=== PATIENT | male | born 1940 | race African-American/Black ===

== ENCOUNTER → 2016-09-07 | Outpatient (CLI) | payer BC ==
[2013-08-13 11:06] VITALS: BP 126/69
[~2016-09-07] MED LIST: ALBU0.63 NEB; AMLO5TAB2 PO; ASPI-482 PO; ATOR40TA59 PO; CALC0.25 PO; CARB200T4 PO; CARV12.52 PO; CIPR500T94; CLON0.2T PO; CLOP75TA57 PO; DIVA500T9 PO; FURO20TA3 PO; GLIP-112 PO; HYDR-2678 PO; ISOS20TA2 PO; TERA5CAP3 PO; WARF10TA6 PO
--- NOTE | 2016-09-07 15:22 | RAD ---
Carotid ultrasound, 09/07/2016: History: Right carotid bruit Duplex evaluation of the carotid arteries in neck was performed including grayscale, color flow and spectral Doppler analysis. There are mild scattered plaques in the common carotid arteries and at the carotid bifurcations, left greater than right. The plaques are partially calcified. The Doppler data obtained from the bifurcations reveals no significant focal velocity acceleration to suggest a hemodynamically significant carotid stenosis. Antegrade flow is present in both vertebral arteries in the neck. IMPRESSION: Mild atherosclerotic plaquing at the carotid bifurcations, left greater than right, with underlying luminal narrowing in the 0-50% diameter range bilaterally. Note: Stenosis calculations for CT, MRA and conventional angiography are based upon determination of the distal ICA diameter in accordance with the NASCET methodology. Stenosis calculations for Doppler studies are derived from validated velocity criteria which are known to correlate with NASCET methodology of determining stenosis.
== END | disposition home or self-care (01) ==
LOC: US 14:41
PROVIDERS: ATTEND Family Medicine
DX: R09.89 Other specified symptoms and signs involving the circulatory and respiratory systems (principal)
CPT/HCPCS: 93880

== ENCOUNTER → 2016-12-12 | Outpatient (CLI) | payer BC ==
[2013-08-13 11:06] VITALS: BP 126/69
[~2016-12-12] MED LIST changes: +REGADENOSON 0.4 MG/5 ML DISP.SYRIN. IV ONE
--- NOTE | 2016-12-12 16:08 | RAD ---
APPROVED REPORT Test Type: Pharmacological Stress Nurse/Tech: Uma Munoz R.N. Test Indications: CAD Cardiac History: CAD, PPM Medications: SEE EMR Medical History: CVA, DM, CRI Resting ECG: PPM Resting Heart Rate: 82 bpm Resting Blood Pressure: 179/82mmHg Pretest Chest Pain: None Nurse/Tech Notes S1S2, lungs CTA, denied chest pain or SOA. Consent: The procedure was explained to the patient in lay terms. Informed consent was witnessed. Declan eout was entered into [employer]. History and Stress Test performed by Uma Munoz R.N. Pharm. Details Pharmacologic stress testing was performed using 0.4mg per 5ml of regadenoson given intravenously ove r 7-10 seconds. Stress Symptoms Extremely SOA. POST EXERCISE Reason for Termination: Infusion complete Max HR: 126 bpm Max Blood Pressure: 179/82mmHg Blood Pressure response to exercise: Normal blood pressure response during stress. Heart Rate response to exercise: Normal Chest Pain: No. Arrhythmia: No. ST Change: No. INTERPRETATION Stress EKG Conclusion: Baseline EKG showed ventricular paced rhythm. Non diagnostic changes at peak stress. No significant arrhythmias. Imaging Protocol IMAGE PROTOCOL: Rest Tc-99m/stress Tc-99m 1 day Rest: Stress: Viability: Radiopharm.Tc99m [id number] Sestamibi Dose11.2mCi 33mCi Duration 15min. 12min. Img Date 12/12/2016 12/12/2016 Inj-Img [id number]. 60min. Rest Admin Site:IV - Right AntecubitalAdministrator:EDWIGE Yoo, ARRT (R)(N) Stress Admin Site: IV - Right AntecubitalAdministrator: Zahra Coombs, RT (R)(N) STRESS DATA End Diast. Vol.95.0mlAv. Heart Scff828.0bpm End Syst. Vol.37.0mlCO Index BSA0.0L/min Myocardial Jwtg197.0gEject. Npitrjhk46.0% Stress Rates Pk. Fill Rate5.13EDV/secLVtime Pk. Fill 66.39msec Pk. Empty Rate6.42ESV/secLVtime Pk. Laohx680.16msec 02/27 Pk. Fill2.68EDV/sec Stress Scores Regional WT3.00Summed WT46.00 Regional WM0.00Summed WM13.00 Study quality was good. Left Ventricular size was Normal at Rest and Stress. Lung uptake was Normal. Left Ventricular ejection fraction is 61%. The rest and stress images show normal perfusion, normal contraction and thickening. LV Perf. Quant 17 Seg. SSS1.00 17 Seg. SRS4.00 17 Seg. SDS0.00 Stress Defect Extent (% LAD)0.00Rest Defect Extent (% LAD)0.00Rev. Defect Extent (% LAD)0.00 Stress Defect Extent (% LCX) 5.00Rest Defect Extent (% LCX)0.00Rev. Defect Extent (% LCX)0.00 Stress Defect Extent (% RCA)0.00Rest Defect Extent (% RCA)0.00Rev. Defect Extent (% RCA)0.00 Stress Defect Extent (% URIAH)0.90Rest Defect Extent (% URIAH)0.00Rev. Defect Extent (% URIAH)0.00 Conclusion 1. Regadenoson cardioisotope stress test did not show any evidence of ischemia or infarct. 2. Normal left ventricular systolic function with ejection fraction calculated at 61%. 3. Low risk for cardiac events.
== END | disposition home or self-care (01) ==
LOC: NM 09:58
PROVIDERS: ATTEND Internal Medicine Cardiovascular Disease
DX: E11.22 Type 2 diabetes mellitus with diabetic chronic kidney disease (principal); N18.9 Chronic kidney disease, unspecified; I25.10 Atherosclerotic heart disease of native coronary artery without angina pectoris; I49.5 Sick sinus syndrome
CPT/HCPCS: 78452; 93017; 96374; 96375; 96376; A9500; J2785

== ENCOUNTER → 2016-12-18 | Outpatient (CLI) | payer BC ==
[2013-08-13 11:06] VITALS: BP 126/69
[~2016-12-18] MED LIST changes: -REGADENOSON 0.4 MG/5 ML DISP.SYRIN. IV ONE
--- NOTE | 2016-12-19 11:04 | SLEEP ---
DATE OF STUDY: 12/18/2016 ATTENDING PHYSICIAN: Dr. Morgan Antonio. The patient is a 76-year-old who weighs 190 pounds with a BMI of 23. The patient's [place] score was 6. The patient had sleep study 15 years ago and he used CPAP for 2 years and then stopped using. Since then, he has lost 60 pounds. During the night study, the patient spent 434 minutes in bed and slept for 382 minutes with a sleep efficiency of 88%. Sleep latency was 20 minutes with a REM latency of 396 minutes. Overall, sleep architecture showed normal stage I sleep, increased stage II sleep, normal slow wave and significantly reduced REM sleep, which was only 1% of the total sleep time. During the night study, the patient had 20 obstructive apneas, 1 mixed, and no central apneas. There were 1 hypopneas. The patient's apnea hypopnea index was only 4 per hour with a supine index of 5 per hour. REM index of 120 per hour. The patient had only 4 minutes of REM sleep, which came very late in the night. EKG monitoring revealed mean heart rate of 68 beats per minute, no sustained arrhythmias were observed. Periodic limb movements were not seen. The nocturnal oximetry study revealed a mean oxygen saturation 97% with the lowest of 87%. Only 0.7% of time oxygen saturation remained between 80% and 89%. Due to low AHI, the patient did not meet the split night criteria for CPAP initiation. IMPRESSION: 1. No clinically significant sleep disordered breathing. The patient's AHI for the entire night was only 4 per hour. The patient had very minimal REM sleep, which was only 1% of the total sleep time and this can underestimate the severity of sleep apnea. 2. No clinically significant PLMS. 3. No clinically significant nocturnal hypoxia. RECOMMENDATIONS: 1. The patient did not meet the split night criteria for CPAP initiation. 2. Further Weight loss is advised. 3. Avoid [employer]PER[employer] depressants. JUAN LOUIE MD DR: FREDO/jj JOB#: [id number] / [id number] Dr. Morgan Arita
== END | disposition home or self-care (01) ==
LOC: SLPLAB 18:23
PROVIDERS: ATTEND Family Medicine
DX: G47.33 Obstructive sleep apnea (adult) (pediatric) (principal); R40.0 Somnolence
CPT/HCPCS: 95810

== ENCOUNTER 2017-01-09 16:41 | Inpatient (IN) | payer BC ==
[~2017-01-09] VITALS: Ht 182.9 cm; Wt 81.4 kg
--- NOTE | 2017-01-09 17:02 | PHYS DOC ---
Past Medical History Past Medical History: Angina, CAD, Diabetes-Type II, DVT, High Cholesterol, Hypertension, Seizure Past Surgical History: Appendectomy Additional Past Surgical Histo: IVC Filter, Heart Cath with stent, vein surgery on leg, back surgery Alcohol Use: None Drug Use: None Adult General Chief Complaint Chief Complaint: DIZZY/LIGHT HEADED HPI HPI Patient is a 76 year old male who presents with with vague complaints of mild to moderate weakness and dizziness this generalized for the past 3 weeks gradual onset; no headache or blurry vision chest pain shortness of breath nausea vomiting diarrhea. Does report decreased appetite and maybe some weight loss. Reports his blood pressure is normally quite high. He does take Coumadin for prior DVT has a pacemaker and is diabetic type II. Review of Systems Review of Systems Constitutional: Denies fever or chills [] Eyes: Denies change in visual acuity, redness, or eye pain [] HENT: Denies nasal congestion or sore throat [] Respiratory: Denies cough or shortness of breath [] Cardiovascular: No additional information not addressed in HPI [] GI: Denies abdominal pain, nausea, vomiting, bloody stools or diarrhea [] : Denies dysuria or hematuria [] Musculoskeletal: Denies back pain or joint pain [] Integument: Denies rash or skin lesions [] Neurologic: Denies headache, focal weakness or sensory changes [] Endocrine: Denies polyuria or polydipsia [] All other systems were reviewed and found to be within normal limits, except as documented in this note. Current Medications Current Medications Current Medications Medications (Trade) Dose Ordered Sig/Rian Start Time Stop Time Status Last Admin Dose Admin Aspirin (Children'S Aspirin) 324 mg 1X ONCE 01/09/17 19:15 01/09/17 19:16 01/09/17 19:10 324 MG Clonidine HCl (Catapres) 0.2 mg 1X ONCE 01/09/17 17:15 01/09/17 17:16 DC 01/09/17 17:54 0.2 MG Morphine Sulfate 2 mg PRN Q2HR PRN 01/09/17 19:15 01/10/17 19:14 Ondansetron HCl (Zofran) 4 mg PRN Q8HRS PRN 01/09/17 19:15 01/10/17 19:14 Sodium Chloride 500 ml @ 500 mls/hr 1X ONCE 01/09/17 17:15 01/09/17 18:14 DC 01/09/17 17:53 500 MLS/HR Allergies Allergies Allergies Coded Allergies Type Severity Reaction Last Updated Verified No Known Drug Allergies 07/30/13 No Physical Exam Physical Exam Constitutional: Well developed, well nourished, no acute distress, non-toxic appearance. [] HENT: Normocephalic, atraumatic, bilateral external ears normal, oropharynx moist, no oral exudates, nose normal. [] Eyes: PERRLA, EOMI, conjunctiva normal, no discharge. [] Neck: Normal range of motion, no tenderness, supple, no stridor. [] Cardiovascular:Heart rate regular rhythm, no murmur [] Lungs & Thorax: Bilateral breath sounds clear to auscultation [] Abdomen: Bowel sounds normal, soft, no tenderness, no masses, no pulsatile masses. [] Skin: Warm, dry, no erythema, no rash. [] Back: No tenderness, no CVA tenderness. [] Extremities: No tenderness, no cyanosis, no clubbing, ROM intact, no edema. [] Neurologic: Alert and oriented X 3, normal motor function, normal sensory function, no focal deficits noted. [] Psychologic: Affect normal, judgement normal, mood normal. [] Current Patient Data Vital Signs Vital Signs Date Time Temp Pulse Resp B/P (MAP) Pulse Ox O2 Delivery O2 Flow Rate FiO2 01/09/17 17:55 84 18 97 01/09/17 17:54 157/82 01/09/17 16:50 97.9 Room Air 97.9 Lab Values Laboratory Tests Test 01/09/17 17:10 01/09/17 17:23 Urine Collection Type Unknown Urine Color Yellow Urine Clarity Clear Urine pH 6.0 Urine Specific [place] 1.010 Urine Protein Negative mg/dL (NEG-TRACE) Urine Glucose (UA) Negative mg/dL (NEG) Urine Ketones (Stick) Negative mg/dL (NEG) Urine Blood Negative (NEG) Urine Nitrite Negative (NEG) Urine Bilirubin Negative (NEG) Urine Urobilinogen Dipstick 1.0 mg/dL (0.2 mg/dL) Urine Leukocyte Esterase Negative (NEG) Urine RBC Rare /HPF (0-2) Urine WBC Rare /HPF (0-4) Urine Squamous Epithelial Cells None /LPF Urine Bacteria 0 /HPF (0-FEW) Urine Hyaline Casts Few /HPF Urine Mucus Mod /LPF White Blood Count 3.4 x10^3/uL (4.0-11.0) L Red Blood Count 3.83 x10^6/uL (4.30-5.70) L Hemoglobin 11.9 g/dL (13.0-17.5) L Hematocrit 37.1 % (39.0-53.0) L Mean Corpuscular Volume 97 fL (79-100) Mean Corpuscular Hemoglobin 31 pg (25-35) Mean Corpuscular Hemoglobin Concent 32 g/dL (31-37) Red Cell Distribution Width 18.4 % (11.5-14.5) H Platelet Count 126 x10^3/uL (140-400) L Neutrophils (%) (Auto) 42 % (31-73) Lymphocytes (%) (Auto) 36 % (24-48) Monocytes (%) (Auto) 15 % (0-9) H Eosinophils (%) (Auto) 7 % (0-3) H Basophils (%) (Auto) 1 % (0-3) Neutrophils # (Auto) 1.4 x10^3uL (1.8-7.7) L Lymphocytes # (Auto) 1.2 x10^3/uL (1.0-4.8) Monocytes # (Auto) 0.5 x10^3/uL (0.0-1.1) Eosinophils # (Auto) 0.2 x10^3/uL (0.0-0.7) Basophils # (Auto) 0.0 x10^3/uL (0.0-0.2) Prothrombin Time 20.6 SEC (11.7-14.0) H Prothrombin Time INR 1.9 (0.8-1.1) H Sodium Level 136 mmol/L (136-145) Potassium Level 5.5 mmol/L (3.5-5.1) H Chloride Level 98 mmol/L (98-107) Carbon Dioxide Level 31 mmol/L (21-32) Anion Gap 7 (6-14) Blood Urea Nitrogen 44 mg/dL (8-26) H Creatinine 2.2 mg/dL (0.7-1.3) H Estimated GFR (Cockcroft-Gault) 35.2 BUN/Creatinine Ratio 20 (6-20) Glucose Level 139 mg/dL (70-99) H Calcium Level 9.4 mg/dL (8.5-10.1) Total Bilirubin 0.4 mg/dL (0.2-1.0) Aspartate Amino Transferase (AST) 83 U/L (15-37) H Alanine Aminotransferase (ALT) 28 U/L (16-63) Alkaline Phosphatase 61 U/L (46-116) Troponin I Quantitative 0.689 ng/mL (0.000-0.055) Total Protein 8.6 g/dL (6.4-8.2) H Albumin 3.4 g/dL (3.4-5.0) Albumin/Globulin Ratio 0.7 (1.0-1.7) L Laboratory Tests 01/09/17 17:23 Laboratory Tests 01/09/17 17:23 EKG EKG EKG paced rhythm rate of 86 LVH right bundle branch block no STEMI. QTC prolonged at 511 my interpretation[] Radiology/Procedures Radiology/Procedures Chest x-ray no acute pulmonary or cardiac disease process seen my interpretation CT head negative per radiology report[] Course & Med Decision Making Course & Med Decision Making Pertinent Labs and Imaging studies reviewed. (See chart for details) []In his chronic renal insufficiency near baseline however his troponin was slightly elevated. Just case Case with primary care physician Dr Sullivan covering for Dr. Ewing. Apparently the patient does have a history coronary artery disease with a possible stent placed in his creatinine and potassium are stable. He does not have any active chest pain now but given his symptoms and elevated troponin we will admit and consult cardiology. Dragon Disclaimer Dragon Disclaimer This electronic medical record was generated, in whole or in part, using a voice recognition dictation system. Departure Departure Impression: Primary Impression: Weakness generalized Additional Impressions: Elevated troponin Chronic renal insufficiency Disposition: ADMITTED INPATIENT Condition: STABLE Referrals: Lizeth EWING MD (PCP) Problem Qualifiers CHRISTINE RASCON MD Jan 09, 2017 17:02
[2017-01-09] MEDS ORDERED: cloNIDine HCL 0.1 MG TABLET PO ONE (17:15)
[2017-01-09] MEDS ORDERED: IV NORMAL SALINE 500ML BAG 500 ML IV ONE (17:15)
[2017-01-09 17:25] LABS: BILIRUBIN,URINE NEGATIVE (NEG); GLUCOSE,URINE NEGATIVE (NEG); NITRITE,URINE NEGATIVE (NEG); PROTEIN,URINE NEGATIVE (NEG-TRACE)
[2017-01-09 17:30] LABS: BACTERIA,URINE 0 /HPF (0-FEW); RBC,URINE RARE /HPF (0-2); WBC,URINE RARE /HPF (0-4)
[2017-01-09 17:36] LABS: BASO % 1 % (0-3); EOS % 7 % (0-3); HEMATOCRIT 37.1 % (39.0-53.0); HEMOGLOBIN 11.9 g/dL (13.0-17.5); LYMPH # 1.2 x10^3/uL (1.0-4.8); LYMPH % 36 % (24-48); MEAN CORPUSCULAR HEMOGLOBIN 31 pg (25-35); MEAN CORPUSCULAR HGB CONC 32 g/dL (31-37); MEAN CORPUSCULAR VOLUME 97 fL (79-100); MONO % 15 % (0-9); NEUT % 42 % (31-73); PLATELET COUNT 126 x10^3/uL (140-400); RED BLOOD COUNT 3.83 x10^6/uL (4.30-5.70); RED CELL DISTRIBUTION WIDTH 18.4 % (11.5-14.5); WHITE BLOOD COUNT 3.4 x10^3/uL (4.0-11.0)
[2017-01-09 17:42] LABS: INR 1.9 (0.8-1.1); PROTHROMBIN TIME PATIENT 20.6 SEC (11.7-14.0)
--- NOTE | 2017-01-09 17:45 | RAD ---
CT HEAD WO CONTRAST dated 01/09/2017 4:59 PM Indication: Dizziness.DIZZY, OFF BALANCE, PRIOR SENT. Comparison: No comparison is available. Technique: Contiguous axial imaging of the head was performed from skull base to vertex. One or more of the following individualized dose reduction techniques were utilized for this examination: 1. Automated exposure control 2. Adjustment of the mA and/or kV according to patient size 3. Use of iterative reconstruction technique Findings: Ventricles and sulci are mildly prominent for age. No midline shift or mass effect. Mild patchy low density in the deep/subcortical periventricular white matter. No hemorrhage or extra-axial collection. Posterior fossa and brainstem unremarkable. Visualized paranasal sinuses and mastoid air cells are clear. No apparent calvarial abnormality. IMPRESSION: 1. No evidence of acute intracranial hemorrhage or mass. 2. Mild chronic small vessel ischemic changes and atrophy. Electronically signed by: Juan Durand MD (01/09/2017 5:42 PM) [facility]
[2017-01-09 17:57] LABS: CALCIUM 9.4 mg/dL (8.5-10.1); CREATININE 2.2 mg/dL (0.7-1.3); GFR 35.2; POTASSIUM 5.5 mmol/L (3.5-5.1)
[2017-01-09 18:05] LABS: ALBUMIN 3.4 g/dL (3.4-5.0); ALBUMIN/GLOBULIN RATIO 0.7 (1.0-1.7); TOTAL BILIRUBIN 0.4 mg/dL (0.2-1.0); TOTAL PROTEIN 8.6 g/dL (6.4-8.2)
[2017-01-09] MEDS ORDERED: ONDANSETRON PF 4 MG/2 ML VIAL. IV PRN (19:15)
[2017-01-09] MEDS ORDERED: ASPIRIN CHEWABLE 81 MG TABLET. PO ONE (19:15)
[2017-01-09] MEDS ORDERED: MORPHINE SULFATE 2 MG/ML DISP.SYRIN. IV PRN (19:15)
[2017-01-09 20:08] VITALS: BP 180/90
[2017-01-09] MEDS ORDERED: AMLO10TA4 PO (20:51)
[2017-01-09] MEDS ORDERED: WARF-78 PO (20:51)
[2017-01-09] MEDS: DIVALPROEX DELAYED RELEASE 500 MG TABLET.DR. PO SCH (21:00)
[2017-01-09] MEDS: TERAZOSIN 5 MG CAPSULE. PO SCH (21:00)
[2017-01-09] MEDS ORDERED: DEXTROSE 50% 25 GM / 50ML DISP.SYRIN. IV PRN (21:00)
[2017-01-09] MEDS: cloNIDine HCL 0.2 MG TABLET PO SCH (21:00)
[2017-01-09] MEDS ORDERED: amLODIPine BESYLATE 5 MG TABLET PO SCH (21:00)
[2017-01-09] MEDS: carBAMazepine 200 MG TABLET PO SCH (21:00)
[2017-01-09] MEDS: amLODIPine BESYLATE 10 MG TABLET PO SCH (21:00)
[2017-01-09] MEDS: ATORVASTATIN CALCIUM 40 MG TABLET. PO SCH (21:00)
[2017-01-09 23:22] VITALS: BP 128/71
[2017-01-10] MEDS ORDERED: HYDROcodone/APAP 5/325MG 1 TAB TABLET PO PRN
[2017-01-10] MEDS ORDERED: HYDROcodone/APAP 5/325MG 1 TAB TABLET PO SCH
[2017-01-10 03:51] VITALS: BP 134/68
[2017-01-10 07:00] VITALS: BP 153/70
--- NOTE | 2017-01-10 07:41 | RAD ---
Chest radiograph One View 01/09/2017 Clinical indication: Dizziness and weakness Comparison: Chest x-ray 05/23/2011 Findings: Cardiac and mediastinal silhouettes are within normal limits. There is mild elevation of the left hemidiaphragm. Left chest wall cardiac connection device in similar position. No pleural effusion, pneumothorax or focal consolidation. Impression: 1. No acute cardiopulmonary abnormality. 2. Stable mild elevation of the left hemidiaphragm
--- NOTE | 2017-01-10 07:43 | EKG ---
[facility] [address] [place] [address] Test Date: 2017-01-09 Test Time: 17:08:23 Pat Name: SIRISHA WINTERS Department: Room: 208 1 Gender: M Search Director: : 1940 Requested By: JAYSON GONZALEZ Order Number: [id number] Reading MD: Samir Mariano MD Measurements Intervals [place] Rate: 86 P: -74 ND: 96 QRS: -83 QRSD: 198 T: 93 QT: 424 QTc: 511 Interpretive Statements SR V-PACED Electronically Signed On 01-10-2017 16:11:03 LEAD CAREGIVER by Samir Mariano MD
[2017-01-10] MEDS: INSULIN ASPART 300 UNITS/3 ML INSULN.PEN SQ SCH ×3 (08:00→18:34)
--- NOTE | 2017-01-10 09:19 | PDOC2 ---
IRENE BUTLER SENIOR CONSUMER INSIGHTS CONSULTANT 01/10/17 0919: CARDIAC CONSULT DATE OF CONSULT Date of Consult DATE: 01/10/17 TIME: 09:07 REASON FOR CONSULT Reason for Consult: Elevated troponin REFERRING PHYSICIAN Referring Physician: Lincoln SOURCE Source: Chart review, Patient HISTORY OF PRESENT ILLNESS HISTORY OF PRESENT ILLNESS This is a pleasant 76 yo male admitted for complains of increasing weakness, lightheadedness, neck pain. Reports that he has been having neck heaviness also in the jaw area in the last 3 weeks. Also notable for abdominal bloating but no nausea or diarrhea. Positive for increasing HERNANDEZ. He has been noted at home by his of having high BP and also with HR in the 130s. Presently both are controlled. Also has been having more arm tremors. Denies any passing out, palpitations or diaphoresis. Denies any dysarthria, unilateral weakness or frequent HAs or vertigo. Verbalized compliance with his medications. PAST MEDICAL HISTORY Cardiovascular: CAD, CHF, HTN, Hyperlipidemia, Other (SSS; PAflultter; PFO) CENTRAL NERVOUS SYSTEM: CVA, Seizure Heme/Onc: Other (dvt) Musculoskeletal: Osteoarthritis Rheumatologic: No pertinent hx Infectious disease: No pertinent hx Renal/: Chronic renal insuff (CKD3), Benign prostatic enlarg. Endocrine: Diabetes (2) PAST SURGICAL HISTORY Past Surgical History: Pacemaker, Other (PCI/BMS to LCx; IVC filter, back surgery and jaw surgery; bilateral LE venous RF ablation) FAMILY HISTORY Family History: Heart Disease SOCIAL HISTORY Smoke: No ALCOHOL: none Drugs: None Lives: with Family CURRENT MEDICATIONS CURRENT MEDICATIONS Current Medications Medications (Trade) Dose Ordered Sig/Rian Route PRN Reason Start Time Stop Time Status Last Admin Dose Admin Clonidine HCl (Catapres) 0.2 mg 1X ONCE PO 01/09/17 17:15 01/09/17 17:16 DC 01/09/17 17:54 Sodium Chloride 500 ml @ 500 mls/hr 1X ONCE IV 01/09/17 17:15 01/09/17 18:14 DC 01/09/17 17:53 Aspirin (Children'S Aspirin) 324 mg 1X ONCE PO 01/09/17 19:15 01/09/17 19:16 DC 01/09/17 19:10 Amlodipine Besylate (Norvasc) 10 mg HS PO 01/09/17 21:00 01/09/17 21:00 Atorvastatin Calcium (Lipitor) 40 mg HS PO 01/09/17 21:00 01/09/17 21:00 Carbamazepine (TEGretol) 400 mg BID PO 01/09/17 21:00 01/09/17 21:00 Clonidine HCl (Catapres) 0.2 mg BID PO 01/09/17 21:00 01/09/17 21:00 Divalproex Sodium (Depakote) 500 mg BID PO 01/09/17 21:00 01/09/17 21:00 Terazosin HCl (Hytrin) 5 mg HS PO 01/09/17 21:00 01/09/17 21:00 ALLERGIES ALLERGIES: Coded Allergies: No Known Drug Allergies (Unverified , 07/30/13) ROS Review of System 14 point ROS evaluated with pertinent positives noted per HPI PHYSICAL EXAM General: Alert, Oriented X3, Cooperative, No acute distress HEENT: Atraumatic, Mucous membr. moist/pink Lungs: Clear to auscultation Heart: Regular rate (paced), Normal S1, Normal S2, Other (s/6 systolic murmur to LLS border) Abdomen: Soft, No tenderness Extremities: No cyanosis, Other (1+ bilateral LE pitting edema) Skin: No breakdown, No significant lesion Neuro: Normal speech, Sensation intact Psych/Mental Status: Mood NL MUSCULOSKELETAL: Osteoarthritic changes both hands VITALS VITALS Vital Signs Date Time Temp Pulse Resp B/P (MAP) Pulse Ox O2 Delivery O2 Flow Rate FiO2 01/10/17 07:00 97.6 67 17 153/70 (97) 93 Room Air 97.6 LABS Lab: Laboratory Tests Test 01/09/17 17:10 01/09/17 17:23 01/09/17 20:48 01/10/17 01:15 Urine Collection Type Unknown Urine Color Yellow Urine Clarity Clear Urine pH 6.0 Urine Specific [place] 1.010 Urine Protein Negative mg/dL (NEG-TRACE) Urine Glucose (UA) Negative mg/dL (NEG) Urine Ketones (Stick) Negative mg/dL (NEG) Urine Blood Negative (NEG) Urine Nitrite Negative (NEG) Urine Bilirubin Negative (NEG) Urine Urobilinogen Dipstick 1.0 mg/dL (0.2 mg/dL) Urine Leukocyte Esterase Negative (NEG) Urine RBC Rare /HPF (0-2) Urine WBC Rare /HPF (0-4) Urine Squamous Epithelial Cells None /LPF Urine Bacteria 0 /HPF (0-FEW) Urine Hyaline Casts Few /HPF Urine Mucus Mod /LPF White Blood Count 3.4 x10^3/uL (4.0-11.0) Red Blood Count 3.83 x10^6/uL (4.30-5.70) Hemoglobin 11.9 g/dL (13.0-17.5) Hematocrit 37.1 % (39.0-53.0) Mean Corpuscular Volume 97 fL (79-100) Mean Corpuscular Hemoglobin 31 pg (25-35) Mean Corpuscular Hemoglobin Concent 32 g/dL (31-37) Red Cell Distribution Width 18.4 % (11.5-14.5) Platelet Count 126 x10^3/uL (140-400) Neutrophils (%) (Auto) 42 % (31-73) Lymphocytes (%) (Auto) 36 % (24-48) Monocytes (%) (Auto) 15 % (0-9) Eosinophils (%) (Auto) 7 % (0-3) Basophils (%) (Auto) 1 % (0-3) Neutrophils # (Auto) 1.4 x10^3uL (1.8-7.7) Lymphocytes # (Auto) 1.2 x10^3/uL (1.0-4.8) Monocytes # (Auto) 0.5 x10^3/uL (0.0-1.1) Eosinophils # (Auto) 0.2 x10^3/uL (0.0-0.7) Basophils # (Auto) 0.0 x10^3/uL (0.0-0.2) Prothrombin Time 20.6 SEC (11.7-14.0) Prothromb Time International Ratio 1.9 (0.8-1.1) Sodium Level 136 mmol/L (136-145) Potassium Level 5.5 mmol/L (3.5-5.1) Chloride Level 98 mmol/L (98-107) Carbon Dioxide Level 31 mmol/L (21-32) Anion Gap 7 (6-14) Blood Urea Nitrogen 44 mg/dL (8-26) Creatinine 2.2 mg/dL (0.7-1.3) Estimated GFR (Cockcroft-Gault) 35.2 BUN/Creatinine Ratio 20 (6-20) Glucose Level 139 mg/dL (70-99) Calcium Level 9.4 mg/dL (8.5-10.1) Total Bilirubin 0.4 mg/dL (0.2-1.0) Aspartate Amino Transf (AST/SGOT) 83 U/L (15-37) Alanine Aminotransferase (ALT/SGPT) 28 U/L (16-63) Alkaline Phosphatase 61 U/L (46-116) Troponin I Quantitative 0.689 ng/mL (0.000-0.055) 0.704 ng/mL (0.000-0.055) Total Protein 8.6 g/dL (6.4-8.2) Albumin 3.4 g/dL (3.4-5.0) Albumin/Globulin Ratio 0.7 (1.0-1.7) Glucose (Fingerstick) 82 mg/dL (70-99) Test 01/10/17 07:10 Troponin I Quantitative 0.749 ng/mL (0.000-0.055) ECHOCARDIOGRAM ECHOCARDIOGRAM <Conclusion> The left ventricular systolic function is normal. The Ejection Fraction is estimated at 50-55%. Transmitral Doppler flow pattern is Grade I-abnormal relaxation pattern. A pacemaker is seen in the right atrium and ventricle consistent with history. Mild aortic regurgitation. Trace mitral regurgitation. Mild tricuspid regurgitation. The PA pressure was estimated at 27 mmHg. There is no evidence of significant pericardial effusion. DATE: 10/25/15 1559 STRESS TEST STRESS TEST Conclusion 1. Regadenoson cardioisotope stress test did not show any evidence of ischemia or infarct. 2. Normal left ventricular systolic function with ejection fraction calculated at 61%. 3. Low risk for cardiac events. DATE: 12/12/16 1608 ASSESSMENT/PLAN ASSESSMENT/PLAN 1. NSTEMI 2. CHF with PPM in situ: recent interrogation 12/19/2016 normal functioning with adequate battery life 3. Accelerated HTN 4. CAD: S/P PCI/BMS to LCx 12/2012 with 50% proximal RCA lesion and 40% mid LAD 5. Hx of PAFlutter: paced 6. Hx of PFO 7. CKD3 8. Hx of DVT left leg 9. HLP 10. Chronic diastolic CHF: compensated 11. Hx of CVA/seizure: presently having more arm tremors, defer to PCP 12. Chronic warfarin therapy Recommendations 1. Stop coumadin and start on heparin 2. Consult nephrology for optimization for [facility] tomorrow. 3. TTE,interrogate device. 4. Continue with secondary prevention. Problems: THAIS LAMBERT MD 01/10/17 1553: CARDIAC CONSULT ALLERGIES ALLERGIES: Coded Allergies: No Known Drug Allergies (Unverified , 07/30/13) ASSESSMENT/PLAN ASSESSMENT/PLAN Patient seen and examined. Agree with FOLDER STITCHER OPERATOR's assessment and plan. Patient presented chest pain-free. Plan for cardiac catheterization tomorrow secondary to known history of coronary artery disease and slightly elevated troponin level. 2-D echo showed normal LV systolic function. Chronic diastolic heart failure clinically well compensated. Nephrology team following patient for renal insufficiency. Thank you for your consultation. Problems: IRENE BUTLER APRN Jan 10, 2017 09:19 THAIS LAMBERT MD Jan 10, 2017 15:53
[2017-01-10] MEDS ORDERED: HEPARIN 25,000UTS/500ML PREMIX 500 ML IV PRN (10:00)
[2017-01-10] MEDS ORDERED: HEPARIN for IV BOLUS 10,000 UNIT/10 ML VIAL. IV PRN (10:00)
[2017-01-10] MEDS: ASPIRIN ENTERIC COATED 81 MG TABLET.DR. PO SCH (10:15)
[2017-01-10] MEDS: glipiZIDE ER 2.5 MG TAB.ER.24 PO SCH (10:18)
[2017-01-10] MEDS: DIVALPROEX DELAYED RELEASE 500 MG TABLET.DR. PO SCH ×2 (10:19→20:19)
[2017-01-10] MEDS: carBAMazepine 200 MG TABLET PO SCH ×2 (10:23→20:17)
[2017-01-10] MEDS: cloNIDine HCL 0.2 MG TABLET PO SCH ×2 (10:23→20:18)
[2017-01-10] MEDS: ALLOPURINOL 100 MG TABLET. PO SCH (10:23)
[2017-01-10] MEDS: FUROSEMIDE 40 MG TABLET. PO SCH (10:24)
[2017-01-10 11:00] VITALS: BP 151/67
[2017-01-10 11:01] LABS: CALCIUM 9.1 mg/dL (8.5-10.1); CHOLESTEROL/HDL RATIO 2.3; CREATININE 2.1 mg/dL (0.7-1.3); GFR 37.1; POTASSIUM 4.5 mmol/L (3.5-5.1)
--- NOTE | 2017-01-10 11:13 | PDOC2 ---
CONSULT Date of Consult Date of Consult DATE: 01/10/17 TIME: 11:05 Reason for Consult Reason for Consult: RENAL FAILURE Referring Physician Referring Physician: LISA Identification/Chief Complaint Chief Complaint WEAKNESS Problems: Source Source: Chart review, Patient History of Present Illness Reason for Visit: THIS IS A 76 YR OLD HERE WITH COMPLAINTS OF WEAKNESS AND TREMORS. STATES HE CANT STAND UP WELL. ALSO HAS NOTED SOME ABD BLOATING WHICH IS BETTER. NO CHEST PAIN BUT SOME DIZZINESS. LABS SHOWED INCREASED CARDIAC ENZYMES. CR IS 2.5 AND K IS 5.5. HX NOTABLE FOR CKD STAGE 3 TO 4 DUE TO HTN AND DM II. HE ALSO HAS SOME ANEMIA. CURRENTLY SCHEDULED FOR HEART CATH TOMORROW. NO HX OF ANY KIDNEY OR BLADDER SURGERIES HEMATURIA DYSURIA OR FREQUENCY NOTED. SOME PROSTATISM Past Medical History Cardiovascular: CAD, CHF, HTN, Hyperlipidemia Heme/Onc: Anemia NOS Renal/: Chronic renal insuff, Benign prostatic enlarg., Other (PROTEINURIA) Endocrine: Diabetes Past Surgical History Past Surgical History IVC FILTER Past Surgical History: Pacemaker, Other (PCI/BMS to LCx; IVC filter, back surgery and jaw surgery; bilateral LE venous RF ablation) Family History Family History: Heart Disease Social History No ALCOHOL: none Drugs: None Lives: with Family Current Problem List Problem List Problems Medical Problems: (1) Chronic renal insufficiency Status: Acute (2) Elevated troponin Status: Acute (3) Weakness generalized Status: Acute Current Medications Current Medications Current Medications Clonidine HCl (Catapres) 0.2 mg 1X ONCE PO Last administered on 01/09/17 17: 54; Start 01/09/17 at 17:15; Stop 01/09/17 at 17:16; Status DC Sodium Chloride 500 ml @ 500 mls/hr 1X ONCE IV Last administered on 17:53; Start 01/09/17 at 17:15; Stop 01/09/17 at 18:14; Status DC Aspirin (Children'S Aspirin) 324 mg 1X ONCE PO Last administered on 19:10; Start 01/09/17 at 19:15; Stop 01/09/17 at 19:16; Status DC Ondansetron HCl (Zofran) 4 mg PRN Q8HRS PRN IV NAUSEA/VOMITING; Start at 19:15; Stop 01/10/17 at 19:14 Morphine Sulfate 2 mg PRN Q2HR PRN IV PAIN; Start 01/09/17 at 19:15; Stop at 19:14 Amlodipine Besylate (Norvasc) 10 mg HS PO ; Start 01/09/17 at 21:00; Status UNV Amlodipine Besylate (Norvasc) 10 mg HS PO Last administered on 01/09/17 21:00 ; Start 01/09/17 at 21:00 Aspirin (Ecotrin) 81 mg DAILY08 PO Last administered on 01/10/17 10:15; Start 01/10/17 at 08:00 Atorvastatin Calcium (Lipitor) 40 mg HS PO Last administered on 01/09/17 21: 00; Start 01/09/17 at 21:00 Calcitriol (Rocaltrol) 0.25 mcg DAILY16 PO ; Start 01/10/17 at 16:00 Carbamazepine (TEGretol) 400 mg BID PO Last administered on 01/10/17 10:23; Start 01/09/17 at 21:00 Clonidine HCl (Catapres) 0.2 mg BID PO Last administered on 01/10/17 10:23; Start 01/09/17 at 21:00 Divalproex Sodium (Depakote) 500 mg BID PO Last administered on 01/10/17 10: 19; Start 01/09/17 at 21:00 Furosemide (Lasix) 40 mg DAILY PO Last administered on 01/10/17 10:24; Start 01/10/17 at 09:00 Acetaminophen/ Hydrocodone Bitart (Lortab 5/325) 1 tab Q6HRS PO ; Start at 00:00; Stop 01/10/17 at 00:00; Status DC Terazosin HCl (Hytrin) 5 mg HS PO Last administered on 01/09/17 21:00; Start 01/09/17 at 21:00 Warfarin Sodium (Coumadin) 5 mg DAILY16 PO ; Start 01/10/17 at 16:00; Stop at 16:00; Status DC Glipizide (Glucotrol Er) 10 mg DAILY08 PO Last administered on 01/10/17 10:18 ; Start 01/10/17 at 08:00 Insulin Aspart (NovoLOG) 0-5 UNITS TIDWMEALS SQ ; Start 01/10/17 at 08:00 Dextrose (Dextrose 50%-Water Syringe) 12.5 gm PRN Q15MIN PRN IV SEE COMMENTS; Start 01/09/17 at 21:00 Warfarin Sodium (Coumadin Per Physician) 1 each PRN DAILY PRN MC SEE COMMENTS; Start 01/09/17 at 21:15; Stop 01/10/17 at 09:53; Status DC Acetaminophen/ Hydrocodone Bitart (Lortab 5/325) 1 tab PRN Q6HRS PRN PO pain Last administered on 01/10/17 10:22; Start 01/10/17 at 00:00 Allopurinol (Zyloprim) 100 mg DAILY PO Last administered on 01/10/17 10:23; Start 01/10/17 at 09:00 Heparin Sodium/ Dextrose 500 ml @ 19.1 mls/hr CONT PRN IV SEE I/O RECORD; Start 01/10/17 at 10:00 Heparin Sodium (Porcine) (Heparin Sodium) 2,000 unit PRN Q6HRS PRN IV FOR UFH LEVEL LESS THAN 0.2; Start 01/10/17 at 10:00 Active Scripts Active Lortab 5-325 mg Tablet (Hydrocodone/Acetaminophen) 1 Each Tablet 1 Tab PO Q6HRS 7 Days Cipro (Ciprofloxacin Hcl) 500 Mg Tablet 500 Mg .ROUTE BID 5 Days Reported Norvasc (Amlodipine Besylate) 10 Mg Tablet 10 Mg PO HS Coumadin (Warfarin Sodium) 5 Mg Tablet 1 Tab PO DAILY Albuterol Sulfate Neb Soln (Albuterol Sulfate) 0.63 Mg/3 Ml Vial.neb 0.63 Mg NEB PRN Q6HRS Terazosin Hcl 5 Mg Capsule 5 Mg PO HS Glipizide Er (Glipizide) 10 Mg Tab.er.24 10 Mg PO DAILY Divalproex Sodium 500 Mg Tablet. 500 Mg PO BID Clonidine Hcl 0.2 Mg Tablet 0.2 Mg PO BID Carbamazepine 200 Mg Tablet 400 Mg PO BID Calcitriol 0.25 Mcg Capsule 0.25 Mcg PO DAILY16 Atorvastatin Calcium 40 Mg Tablet 40 Mg PO HS Aspir 81 (Aspirin) 81 Mg Tablet.dr 81 Mg PO DAILY Amlodipine Besylate 5 Mg Tablet 10 Mg PO HS Furosemide 20 Mg Tablet 40 Mg PO DAILY Allergies Allergies: Coded Allergies: No Known Drug Allergies (Unverified , 07/30/13) ROS General: YES: Fatigue, Appetite PSYCHOLOGICAL ROS: YES: Anxiety, Depression Eyes: Yes Decreased vision HEENT: YES: Heacaches, Nasal congestion Respiratory: YES: Cough Cardiovascular: yes Lt Headedness Gastrointestinal: Yes Nausea, Yes Constipation Genitourinary: YES Other (NOCTURIA) Musculoskeletal: Yes Muscular Weakness Neurological: Yes Dizziness, Yes Gait Disturbance, Yes Tremors, Yes Weakness Skin: Yes Dry Skin Physical Exam General: Alert, No acute distress HEENT: PERRLA, EOMI, Mucous membr. moist/pink Lungs: Clear to auscultation Heart: Regular rate, Normal S1, Normal S2, No murmurs Abdomen: Normal bowel sounds, Soft, No tenderness, No hepatosplenomegaly Extremities: No clubbing, No edema Neuro: Normal speech, Cranial nerves 3-12 NL Psych/Mental Status: Mental status NL, Mood NL MUSCULOSKELETAL: No deformity, No swelling Vitals VITALS Vital Signs Date Time Temp Pulse Resp B/P (MAP) Pulse Ox O2 Delivery O2 Flow Rate FiO2 01/10/17 10:23 67 153/70 01/10/17 10:22 18 93 Room Air 01/10/17 07:00 97.6 97.6 Labs Labs Laboratory Tests Test 01/09/17 17:10 01/09/17 17:23 01/09/17 20:48 01/10/17 01:15 Urine Collection Type Unknown Urine Color Yellow Urine Clarity Clear Urine pH 6.0 Urine Specific [place] 1.010 Urine Protein Negative mg/dL (NEG-TRACE) Urine Glucose (UA) Negative mg/dL (NEG) Urine Ketones (Stick) Negative mg/dL (NEG) Urine Blood Negative (NEG) Urine Nitrite Negative (NEG) Urine Bilirubin Negative (NEG) Urine Urobilinogen Dipstick 1.0 mg/dL (0.2 mg/dL) Urine Leukocyte Esterase Negative (NEG) Urine RBC Rare /HPF (0-2) Urine WBC Rare /HPF (0-4) Urine Squamous Epithelial Cells None /LPF Urine Bacteria 0 /HPF (0-FEW) Urine Hyaline Casts Few /HPF Urine Mucus Mod /LPF White Blood Count 3.4 x10^3/uL (4.0-11.0) Red Blood Count 3.83 x10^6/uL (4.30-5.70) Hemoglobin 11.9 g/dL (13.0-17.5) Hematocrit 37.1 % (39.0-53.0) Mean Corpuscular Volume 97 fL (79-100) Mean Corpuscular Hemoglobin 31 pg (25-35) Mean Corpuscular Hemoglobin Concent 32 g/dL (31-37) Red Cell Distribution Width 18.4 % (11.5-14.5) Platelet Count 126 x10^3/uL (140-400) Neutrophils (%) (Auto) 42 % (31-73) Lymphocytes (%) (Auto) 36 % (24-48) Monocytes (%) (Auto) 15 % (0-9) Eosinophils (%) (Auto) 7 % (0-3) Basophils (%) (Auto) 1 % (0-3) Neutrophils # (Auto) 1.4 x10^3uL (1.8-7.7) Lymphocytes # (Auto) 1.2 x10^3/uL (1.0-4.8) Monocytes # (Auto) 0.5 x10^3/uL (0.0-1.1) Eosinophils # (Auto) 0.2 x10^3/uL (0.0-0.7) Basophils # (Auto) 0.0 x10^3/uL (0.0-0.2) Prothrombin Time 20.6 SEC (11.7-14.0) Prothromb Time International Ratio 1.9 (0.8-1.1) Sodium Level 136 mmol/L (136-145) Potassium Level 5.5 mmol/L (3.5-5.1) Chloride Level 98 mmol/L (98-107) Carbon Dioxide Level 31 mmol/L (21-32) Anion Gap 7 (6-14) Blood Urea Nitrogen 44 mg/dL (8-26) Creatinine 2.2 mg/dL (0.7-1.3) Estimated GFR (Cockcroft-Gault) 35.2 BUN/Creatinine Ratio 20 (6-20) Glucose Level 139 mg/dL (70-99) Calcium Level 9.4 mg/dL (8.5-10.1) Total Bilirubin 0.4 mg/dL (0.2-1.0) Aspartate Amino Transf (AST/SGOT) 83 U/L (15-37) Alanine Aminotransferase (ALT/SGPT) 28 U/L (16-63) Alkaline Phosphatase 61 U/L (46-116) Troponin I Quantitative 0.689 ng/mL (0.000-0.055) 0.704 ng/mL (0.000-0.055) Total Protein 8.6 g/dL (6.4-8.2) Albumin 3.4 g/dL (3.4-5.0) Albumin/Globulin Ratio 0.7 (1.0-1.7) Glucose (Fingerstick) 82 mg/dL (70-99) Test 01/10/17 07:10 Sodium Level 143 mmol/L (136-145) Potassium Level 4.5 mmol/L (3.5-5.1) Chloride Level 103 mmol/L (98-107) Carbon Dioxide Level 35 mmol/L (21-32) Anion Gap 5 (6-14) Blood Urea Nitrogen 41 mg/dL (8-26) Creatinine 2.1 mg/dL (0.7-1.3) Estimated GFR (Cockcroft-Gault) 37.1 Glucose Level 114 mg/dL (70-99) Calcium Level 9.1 mg/dL (8.5-10.1) Magnesium Level 2.0 mg/dL (1.8-2.4) Troponin I Quantitative 0.749 ng/mL (0.000-0.055) Triglycerides Level 86 mg/dL (0-150) Cholesterol Level 122 mg/dL (0-200) LDL Cholesterol, Calculated 52 mg/dL (0-100) VLDL Cholesterol, Calculated 17 mg/dL (0-40) Non-HDL Cholesterol Calculated 69 mg/dL (0-129) HDL Cholesterol 53 mg/dL (40-60) Cholesterol/HDL Ratio 2.3 Laboratory Tests Test 01/09/17 17:10 01/09/17 17:23 01/09/17 20:48 01/10/17 01:15 Urine Collection Type Unknown Urine Color Yellow Urine Clarity Clear Urine pH 6.0 Urine Specific [place] 1.010 Urine Protein Negative mg/dL (NEG-TRACE) Urine Glucose (UA) Negative mg/dL (NEG) Urine Ketones (Stick) Negative mg/dL (NEG) Urine Blood Negative (NEG) Urine Nitrite Negative (NEG) Urine Bilirubin Negative (NEG) Urine Urobilinogen Dipstick 1.0 mg/dL (0.2 mg/dL) Urine Leukocyte Esterase Negative (NEG) Urine RBC Rare /HPF (0-2) Urine WBC Rare /HPF (0-4) Urine Squamous Epithelial Cells None /LPF Urine Bacteria 0 /HPF (0-FEW) Urine Hyaline Casts Few /HPF Urine Mucus Mod /LPF White Blood Count 3.4 x10^3/uL (4.0-11.0) Red Blood Count 3.83 x10^6/uL (4.30-5.70) Hemoglobin 11.9 g/dL (13.0-17.5) Hematocrit 37.1 % (39.0-53.0) Mean Corpuscular Volume 97 fL (79-100) Mean Corpuscular Hemoglobin 31 pg (25-35) Mean Corpuscular Hemoglobin Concent 32 g/dL (31-37) Red Cell Distribution Width 18.4 % (11.5-14.5) Platelet Count 126 x10^3/uL (140-400) Neutrophils (%) (Auto) 42 % (31-73) Lymphocytes (%) (Auto) 36 % (24-48) Monocytes (%) (Auto) 15 % (0-9) Eosinophils (%) (Auto) 7 % (0-3) Basophils (%) (Auto) 1 % (0-3) Neutrophils # (Auto) 1.4 x10^3uL (1.8-7.7) Lymphocytes # (Auto) 1.2 x10^3/uL (1.0-4.8) Monocytes # (Auto) 0.5 x10^3/uL (0.0-1.1) Eosinophils # (Auto) 0.2 x10^3/uL (0.0-0.7) Basophils # (Auto) 0.0 x10^3/uL (0.0-0.2) Prothrombin Time 20.6 SEC (11.7-14.0) Prothromb Time International Ratio 1.9 (0.8-1.1) Sodium Level 136 mmol/L (136-145) Potassium Level 5.5 mmol/L (3.5-5.1) Chloride Level 98 mmol/L (98-107) Carbon Dioxide Level 31 mmol/L (21-32) Anion Gap 7 (6-14) Blood Urea Nitrogen 44 mg/dL (8-26) Creatinine 2.2 mg/dL (0.7-1.3) Estimated GFR (Cockcroft-Gault) 35.2 BUN/Creatinine Ratio 20 (6-20) Glucose Level 139 mg/dL (70-99) Calcium Level 9.4 mg/dL (8.5-10.1) Total Bilirubin 0.4 mg/dL (0.2-1.0) Aspartate Amino Transf (AST/SGOT) 83 U/L (15-37) Alanine Aminotransferase (ALT/SGPT) 28 U/L (16-63) Alkaline Phosphatase 61 U/L (46-116) Troponin I Quantitative 0.689 ng/mL (0.000-0.055) 0.704 ng/mL (0.000-0.055) Total Protein 8.6 g/dL (6.4-8.2) Albumin 3.4 g/dL (3.4-5.0) Albumin/Globulin Ratio 0.7 (1.0-1.7) Glucose (Fingerstick) 82 mg/dL (70-99) Test 01/10/17 07:10 Sodium Level 143 mmol/L (136-145) Potassium Level 4.5 mmol/L (3.5-5.1) Chloride Level 103 mmol/L (98-107) Carbon Dioxide Level 35 mmol/L (21-32) Anion Gap 5 (6-14) Blood Urea Nitrogen 41 mg/dL (8-26) Creatinine 2.1 mg/dL (0.7-1.3) Estimated GFR (Cockcroft-Gault) 37.1 Glucose Level 114 mg/dL (70-99) Calcium Level 9.1 mg/dL (8.5-10.1) Magnesium Level 2.0 mg/dL (1.8-2.4) Troponin I Quantitative 0.749 ng/mL (0.000-0.055) Triglycerides Level 86 mg/dL (0-150) Cholesterol Level 122 mg/dL (0-200) LDL Cholesterol, Calculated 52 mg/dL (0-100) VLDL Cholesterol, Calculated 17 mg/dL (0-40) Non-HDL Cholesterol Calculated 69 mg/dL (0-129) HDL Cholesterol 53 mg/dL (40-60) Cholesterol/HDL Ratio 2.3 Assessment/Plan Assessment/Plan IMP CKD STAGE 3 TO 4 WITH STABLE CR OF 2.2 MILD HYPERKALEMIA CAD WITH CM - EF 20% ?NSTEMI DM II HTN TREMORS PLAN IVF'S PROB CATH TOMORROW CAN RISK EXPLAINED TO PT AND PO KAYEXALATE WILL ASK NEURO TO SEE PT MARGOT MCNEIL MD Jan 10, 2017 11:13
[2017-01-10] MEDS ORDERED: SODIUM POLYSTYRENE SULFONATE 15 GM/60 ML ORAL.SUSP. PO ONE (11:30)
[2017-01-10] MEDS: IV NORMAL SALINE 1000ML BAG 1,000 ML IV SCH (12:43)
--- NOTE | 2017-01-10 13:25 | CARD ---
APPROVED REPORT EXAM: Two-dimensional and M-mode echocardiogram with Doppler and color Doppler. Other Information Quality : Average Rhythm : Pacemaker INDICATION Cardiac Disease: CAD Elevated troponin level 2D DIMENSIONS Left Atrium(2D)2.5 (1.6-4.0cm)IVSd1.4 (0.7-1.1cm) Aortic Root(2D)3.5 (2.0-3.7cm)LVDd3.9 (3.9-5.9cm) LVOT Diameter2.0 (1.8-2.4cm)PWd1.4 (0.7-1.1cm) LVDs2.5 (2.5-4.0cm)FS (%) 25.5 % SV42.2 mlLVEF(%)55.7 (>50%) Aortic Valve AoV Peak Nate.113.7cm/sAoV VTI24.9cm AO Peak GR.5.2mmHgLVOT VTI 24.89cm AO Mean GR.3mmHgAVA (VTI)3.20cm2 Mitral Valve MV E Vylngolz51.1cm/sMV E Peak Gr.3mmHg MV DECEL [id number] A Mqhylwfx61.8cm/s MV SFG55kiT/A Ratio0.9 MV A [id number] (PHT)2.75cm2 TDI Lateral E' P. V6.71cm/sMedial E' P. V5.92cm/s E/Lateral E'11.8E/Medial E'13.4 Tricuspid Valve TR P. Lsbokkwo340qc/sRAP VBIMAPFW3bqHi TR Peak Gr.09lsBnUTWE57ehXy Pulmonary Vein S1 Llfhslkg78.2cm/sS2 Rozntbzc89.16cm/s D2 Wnxnsopo22.2cm/s LEFT VENTRICLE The left ventricle is normal size. There is mild concentric left ventricular hypertrophy. Left ventri robbie systolic function is normal. The Ejection Fraction is 55-60%. There is normal LV segmental wall m otion. Tissue Doppler imaging reveals mild left ventricular diastolic dysfunction. RIGHT VENTRICLE The right ventricle is normal size. The right ventricular systolic function is normal. There is a pac emaker lead seen in the right ventricle and atrium. ATRIA The left atrium size is normal. The right atrium size is normal. The interatrial septum is intact wit h no evidence for an atrial septal defect or patent foramen ovale as noted on 2-D or Doppler imaging. AORTIC VALVE The aortic valve is mildly calcified. The aortic valve is trileaflet. Doppler and Color Flow revealed trace aortic regurgitation. There is no significant aortic valvular stenosis. MITRAL VALVE The mitral valve is normal in structure and function. There is no mitral valve stenosis. Doppler and Color Flow revealed trace mitral regurgitation. TRICUSPID VALVE The tricuspid valve is not well visualized. Doppler and Color Flow revealed mild tricuspid regurgitat ion. The PA pressure was estimated at 32 mmHg. There is no tricuspid valve stenosis. PULMONIC VALVE The pulmonic valve is not well visualized. Doppler and Color Flow revealed trace pulmonic valvular re gurgitation. There is no pulmonic valvular stenosis. GREAT VESSELS The aortic root is normal in size. The ascending aorta is normal in size. Normal pulmonary venous delores w (Doppler). The IVC is normal in size and collapses >50% with inspiration. PERICARDIAL EFFUSION There is no evidence of significant pericardial effusion. Critical Notification Critical Value: No <Conclusion> There is mild concentric left ventricular hypertrophy. Left ventricle systolic function is normal. The Ejection Fraction is 55-60%. There is normal LV segmental wall motion. There is a pacemaker lead seen in the right ventricle and atrium.
[2017-01-10 13:56] LABS: FOLATE 8.77 ng/ml (3.2-20.0)
[2017-01-10 15:00] VITALS: BP 159/75
--- NOTE | 2017-01-10 15:07 | HP ---
ADMIT DATE: 01/09/2017 CHIEF COMPLAINT: Weakness. HISTORY OF PRESENT ILLNESS AND HOSPITAL COURSE: This patient is a 76-year-old -[place] male, who comes in with a chief complaint of weakness. The patient has been having for the last several months increasing tremor, weakness and dizziness. He denies any shortness of breath or chest pain. The patient was admitted to the Emergency Room with weakness and inability to care for himself with visible tremors and was found to have chronic renal insufficiency with elevated troponin. Due to severity of illness and inability to care for himself, he was admitted to the hospital for rule out cardiac disease, for weakness and ongoing PT and OT modalities and possible transfer to [facility] due to debilitation. PAST MEDICAL HISTORY: Significant for: 1. Seizure disorder. 2. Hypertension. 3. Type 2 diabetes. 4. Coronary artery disease. 5. Peripheral vascular disease, status post stenting. 6. Permanent pacemaker placement. 7. Paroxysmal atrial fibrillation. 8. Venous insufficiency. 9. History of DVT in the left leg. 10. Chronic kidney disease stage 3 to 4 with baseline creatinine of 2.3. 11. Questionable history of PFO listed on office record. 12. Gouty arthritis. FAMILY HISTORY: Significant for heart disease without specifications in father, brother and sister. PAST SURGICAL HISTORY: Significant for: 1. Back surgery. 2. Jaw surgery. 3. Vena cava filter. 4. Permanent pacemaker placement. 5. Percutaneous stent placement for peripheral vascular disease. SOCIAL HISTORY: The patient has never smoked. He does not use alcohol. He lives with his . ALLERGIES: The patient denies any drug allergies. REVIEW OF SYSTEMS: Significant for progressive weakness and tremor. No recent nausea, vomiting, cough, congestion, chest pain or shortness of breath. PHYSICAL EXAMINATION: GENERAL: This is a well-nourished, well-developed male, who was only oriented to time, but not place. HEENT: Benign. NECK: Supple, without JVD or bruit. CARDIAC: Regular rate and rhythm without murmurs. LUNGS: Clear. ABDOMEN: Soft and nontender with positive bowel sounds. EXTREMITIES: 2+ pulses without edema. NEUROLOGIC: Showed moderate weakness to the right hand compared to the left. 2+ DTRs. ____ strength in lower extremities bilaterally, again slight weakness on the right versus the left. The patient does have essential tremor of both hands. The patient has slowed and somewhat slurred speech in general. The patient has impaired short term memory. ASSESSMENT: 1. Generalized weakness. 2. Elevated troponin, rule out myocardial infarction. 3. Hypothyroidism. 4. Chronic kidney disease with baseline creatinine of 2.3. 5. Type 2 diabetes. 6. Elevated troponin. PLAN: To proceed with Cardiology consultation, Neurology consultation and Renal consultation. Proceed with PT and OT modalities and monitor the patient's symptoms and proceed with SNU care if the patient is unable to adequately transfer or ambulate. JAYSON GONZALEZ MD DR: YANET/jj JOB#: [id number] / [id number]
[2017-01-10] MEDS ORDERED: WARFARIN 5 MG TABLET. PO SCH (16:00)
[2017-01-10] MEDS: CALCITRIOL 0.25 MCG CAPSULE. PO SCH (16:38)
[2017-01-10] MEDS: CARVEDILOL 12.5 MG TABLET. PO SCH (16:38)
--- NOTE | 2017-01-10 18:46 | PDOC2 ---
NEUROLOGY CONSULT Date of Admission Date of Admission DATE: 01/10/17 TIME: 18:33 Reason for Consult Reason for Consult: IMPRESSION: Chronic tremor or jerking like movements x 3 years. Gait instability x 3 years, worse recently. PD not likely. HTN HLD CAD Seizure Hx. DM CKD Renal failure. Dementia features. RECOMMENDATIONS/PLAN: Cervical spine MRI w/o contrast due to renal failure. Lab: see orders. EEG Treat medical diseases. OT/PT. HISTORY OF THE PRESENT ILLNESS: 76-y-old male patient with above medical diseases has been having symptoms of abnormal tremor like or jerking movements in hands. He also has gait instability for about 3 years but became worse in the recent months. Patient was unable to provide detailed information. PAST MEDICAL HISTORY Cardiovascular: CAD, CHF, HTN, Hyperlipidemia, Other (SSS; PAflultter; PFO) CENTRAL NERVOUS SYSTEM: CVA, Seizure Heme/Onc: Other (dvt) Musculoskeletal: Osteoarthritis Rheumatologic: No pertinent hx Infectious disease: No pertinent hx Renal/: Chronic renal insuff (CKD3), Benign prostatic enlarg. Endocrine: Diabetes (2) PAST SURGICAL HISTORY Pacemaker, Other (PCI/BMS to LCx; IVC filter, back surgery and jaw surgery; bilateral LE venous RF ablation) FAMILY HISTORY Heart Disease SOCIAL HISTORY Smoke: No ALCOHOL: none Drugs: None Lives: with Family ALLERGY: Reviewed. MEDICATIONS: Refer to MAR REVIEW OF SYSTEMS: Constitutional: Mild malnutrition. Head: No traumatic brain or head injury. Skin: No edema, or rash. Ear: No infection Eyes: No vision loss or color blindness. Nose: No bleeding or purulent discharges. Hearing: Hearing decrease. Neck: No injury. Cardiac: HTN, HLD. Pulmonary: No pneumonia,. GI: No GI ulcer, GI bleeding. Urinary/genital: UTI. Endocrinologic: Diabetes Mellitus. Skeletomuscular: Generalized weakness. Neurological: see HP. Psychiatric: Denies drug use/abuse. Otherwise, not [id number] review of systems. PHYSICAL EXAMINATION: General appearance is in subacute distress. HEENT: Normocephalic and nontraumatic. Eyes, nose, ears, and throat are unremarkable. Neck is supple. No lymphadenopathy. No crepitus. Cardiovascular: S1, S2, regular rate and rhythm. Pulmonary: Clear to auscultation bilaterally. Abdomen: Bowel sounds are positive. Extremities: No rash, lesions, or edema. No restriction of range of motion NEUROLOGICAL EXAMINATION: Awake. Oriented to place and person not to time.. PERRL. EOMI. CN: no focal findings. Muscle tone: within normal. Muscle strength: 4 DTR: 2- Plantar reflex: Neutral response bilaterally Gait: not examined in bed. Sensory exam: no abnormal findings. No acute cerebellar signs elicited. F-T-N test fine. Current Medications Current Medications Current Medications Clonidine HCl (Catapres) 0.2 mg 1X ONCE PO Last administered on 01/09/17 17: 54; Start 01/09/17 at 17:15; Stop 01/09/17 at 17:16; Status DC Sodium Chloride 500 ml @ 500 mls/hr 1X ONCE IV Last administered on 17:53; Start 01/09/17 at 17:15; Stop 01/09/17 at 18:14; Status DC Aspirin (Children'S Aspirin) 324 mg 1X ONCE PO Last administered on 19:10; Start 01/09/17 at 19:15; Stop 01/09/17 at 19:16; Status DC Ondansetron HCl (Zofran) 4 mg PRN Q8HRS PRN IV NAUSEA/VOMITING; Start at 19:15; Stop 01/10/17 at 19:14 Morphine Sulfate 2 mg PRN Q2HR PRN IV PAIN; Start 01/09/17 at 19:15; Stop at 19:14 Amlodipine Besylate (Norvasc) 10 mg HS PO ; Start 01/09/17 at 21:00; Status UNV Amlodipine Besylate (Norvasc) 10 mg HS PO Last administered on 01/09/17 21:00 ; Start 01/09/17 at 21:00 Aspirin (Ecotrin) 81 mg DAILY08 PO Last administered on 01/10/17 10:15; Start 01/10/17 at 08:00 Atorvastatin Calcium (Lipitor) 40 mg HS PO Last administered on 01/09/17 21: 00; Start 01/09/17 at 21:00 Calcitriol (Rocaltrol) 0.25 mcg DAILY16 PO Last administered on 01/10/17 16: 38; Start 01/10/17 at 16:00 Carbamazepine (TEGretol) 400 mg BID PO Last administered on 01/10/17 10:23; Start 01/09/17 at 21:00 Clonidine HCl (Catapres) 0.2 mg BID PO Last administered on 01/10/17 10:23; Start 01/09/17 at 21:00 Divalproex Sodium (Depakote) 500 mg BID PO Last administered on 01/10/17 10: 19; Start 01/09/17 at 21:00 Furosemide (Lasix) 40 mg DAILY PO Last administered on 01/10/17 10:24; Start 01/10/17 at 09:00 Acetaminophen/ Hydrocodone Bitart (Lortab 5/325) 1 tab Q6HRS PO ; Start at 00:00; Stop 01/10/17 at 00:00; Status DC Terazosin HCl (Hytrin) 5 mg HS PO Last administered on 01/09/17 21:00; Start 01/09/17 at 21:00 Warfarin Sodium (Coumadin) 5 mg DAILY16 PO ; Start 01/10/17 at 16:00; Stop at 16:00; Status DC Glipizide (Glucotrol Er) 10 mg DAILY08 PO Last administered on 01/10/17 10:18 ; Start 01/10/17 at 08:00 Insulin Aspart (NovoLOG) 0-5 UNITS TIDWMEALS SQ Last administered on 13:04; Start 01/10/17 at 08:00 Dextrose (Dextrose 50%-Water Syringe) 12.5 gm PRN Q15MIN PRN IV SEE COMMENTS; Start 01/09/17 at 21:00 Warfarin Sodium (Coumadin Per Physician) 1 each PRN DAILY PRN MC SEE COMMENTS; Start 01/09/17 at 21:15; Stop 01/10/17 at 09:53; Status DC Acetaminophen/ Hydrocodone Bitart (Lortab 5/325) 1 tab PRN Q6HRS PRN PO pain Last administered on 01/10/17 10:22; Start 01/10/17 at 00:00 Allopurinol (Zyloprim) 100 mg DAILY PO Last administered on 01/10/17 10:23; Start 01/10/17 at 09:00 Heparin Sodium/ Dextrose 500 ml @ 19.1 mls/hr CONT PRN IV SEE I/O RECORD Last administered on 01/10/17 12:44; Start 01/10/17 at 10:00 Heparin Sodium (Porcine) (Heparin Sodium) 2,000 unit PRN Q6HRS PRN IV FOR UFH LEVEL LESS THAN 0.2; Start 01/10/17 at 10:00 Sodium Chloride 1,000 ml @ 75 mls/hr [id number] IV Last administered on 12:43; Start 01/10/17 at 12:00 Sodium Polystyrene Sulfonate (Kayexalate) 30 gm 1X ONCE PO Last administered on 01/10/17 12:36; Start 01/10/17 at 11:30; Stop 01/10/17 at 11:31; Status DC Carvedilol (Coreg) 12.5 mg BIDWMEALS PO Last administered on 01/10/17 16:38; Start 01/10/17 at 17:00 Active Scripts Active Lortab 5-325 mg Tablet (Hydrocodone/Acetaminophen) 1 Each Tablet 1 Tab PO Q6HRS 7 Days Cipro (Ciprofloxacin Hcl) 500 Mg Tablet 500 Mg .ROUTE BID 5 Days Reported Norvasc (Amlodipine Besylate) 10 Mg Tablet 10 Mg PO HS Coumadin (Warfarin Sodium) 5 Mg Tablet 1 Tab PO DAILY Albuterol Sulfate Neb Soln (Albuterol Sulfate) 0.63 Mg/3 Ml Vial.neb 0.63 Mg NEB PRN Q6HRS Terazosin Hcl 5 Mg Capsule 5 Mg PO HS Glipizide Er (Glipizide) 10 Mg Tab.er.24 10 Mg PO DAILY Divalproex Sodium 500 Mg Tablet.dr 500 Mg PO BID Clonidine Hcl 0.2 Mg Tablet 0.2 Mg PO BID Carbamazepine 200 Mg Tablet 400 Mg PO BID Calcitriol 0.25 Mcg Capsule 0.25 Mcg PO DAILY16 Atorvastatin Calcium 40 Mg Tablet 40 Mg PO HS Aspir 81 (Aspirin) 81 Mg Tablet.dr 81 Mg PO DAILY Amlodipine Besylate 5 Mg Tablet 10 Mg PO HS Furosemide 20 Mg Tablet 40 Mg PO DAILY Allergies Allergies: Coded Allergies: No Known Drug Allergies (Unverified , 07/30/13) Vitals VITALS Vital Signs Date Time Temp Pulse Resp B/P (MAP) Pulse Ox O2 Delivery O2 Flow Rate FiO2 01/10/17 16:38 71 152/78 01/10/17 15:00 97.6 16 97 Room Air 97.6 Labs Labs Laboratory Tests Test 01/09/17 17:10 01/09/17 17:23 01/09/17 20:48 01/10/17 01:15 Urine Collection Type Unknown Urine Color Yellow Urine Clarity Clear Urine pH 6.0 Urine Specific [place] 1.010 Urine Protein Negative mg/dL (NEG-TRACE) Urine Glucose (UA) Negative mg/dL (NEG) Urine Ketones (Stick) Negative mg/dL (NEG) Urine Blood Negative (NEG) Urine Nitrite Negative (NEG) Urine Bilirubin Negative (NEG) Urine Urobilinogen Dipstick 1.0 mg/dL (0.2 mg/dL) Urine Leukocyte Esterase Negative (NEG) Urine RBC Rare /HPF (0-2) Urine WBC Rare /HPF (0-4) Urine Squamous Epithelial Cells None /LPF Urine Bacteria 0 /HPF (0-FEW) Urine Hyaline Casts Few /HPF Urine Mucus Mod /LPF White Blood Count 3.4 x10^3/uL (4.0-11.0) Red Blood Count 3.83 x10^6/uL (4.30-5.70) Hemoglobin 11.9 g/dL (13.0-17.5) Hematocrit 37.1 % (39.0-53.0) Mean Corpuscular Volume 97 fL (79-100) Mean Corpuscular Hemoglobin 31 pg (25-35) Mean Corpuscular Hemoglobin Concent 32 g/dL (31-37) Red Cell Distribution Width 18.4 % (11.5-14.5) Platelet Count 126 x10^3/uL (140-400) Neutrophils (%) (Auto) 42 % (31-73) Lymphocytes (%) (Auto) 36 % (24-48) Monocytes (%) (Auto) 15 % (0-9) Eosinophils (%) (Auto) 7 % (0-3) Basophils (%) (Auto) 1 % (0-3) Neutrophils # (Auto) 1.4 x10^3uL (1.8-7.7) Lymphocytes # (Auto) 1.2 x10^3/uL (1.0-4.8) Monocytes # (Auto) 0.5 x10^3/uL (0.0-1.1) Eosinophils # (Auto) 0.2 x10^3/uL (0.0-0.7) Basophils # (Auto) 0.0 x10^3/uL (0.0-0.2) Prothrombin Time 20.6 SEC (11.7-14.0) Prothromb Time International Ratio 1.9 (0.8-1.1) Sodium Level 136 mmol/L (136-145) Potassium Level 5.5 mmol/L (3.5-5.1) Chloride Level 98 mmol/L (98-107) Carbon Dioxide Level 31 mmol/L (21-32) Anion Gap 7 (6-14) Blood Urea Nitrogen 44 mg/dL (8-26) Creatinine 2.2 mg/dL (0.7-1.3) Estimated GFR (Cockcroft-Gault) 35.2 BUN/Creatinine Ratio 20 (6-20) Glucose Level 139 mg/dL (70-99) Calcium Level 9.4 mg/dL (8.5-10.1) Total Bilirubin 0.4 mg/dL (0.2-1.0) Aspartate Amino Transf (AST/SGOT) 83 U/L (15-37) Alanine Aminotransferase (ALT/SGPT) 28 U/L (16-63) Alkaline Phosphatase 61 U/L (46-116) Troponin I Quantitative 0.689 ng/mL (0.000-0.055) 0.704 ng/mL (0.000-0.055) Total Protein 8.6 g/dL (6.4-8.2) Albumin 3.4 g/dL (3.4-5.0) Albumin/Globulin Ratio 0.7 (1.0-1.7) Glucose (Fingerstick) 82 mg/dL (70-99) Test 01/10/17 07:10 01/10/17 11:49 01/10/17 16:24 Sodium Level 143 mmol/L (136-145) Potassium Level 4.5 mmol/L (3.5-5.1) Chloride Level 103 mmol/L (98-107) Carbon Dioxide Level 35 mmol/L (21-32) Anion Gap 5 (6-14) Blood Urea Nitrogen 41 mg/dL (8-26) Creatinine 2.1 mg/dL (0.7-1.3) Estimated GFR (Cockcroft-Gault) 37.1 Glucose Level 114 mg/dL (70-99) Calcium Level 9.1 mg/dL (8.5-10.1) Magnesium Level 2.0 mg/dL (1.8-2.4) Troponin I Quantitative 0.749 ng/mL (0.000-0.055) CV-Eet-T-Type Natriuretic Peptide 403 pg/mL (0-449) Triglycerides Level 86 mg/dL (0-150) Cholesterol Level 122 mg/dL (0-200) LDL Cholesterol, Calculated 52 mg/dL (0-100) VLDL Cholesterol, Calculated 17 mg/dL (0-40) Non-HDL Cholesterol Calculated 69 mg/dL (0-129) HDL Cholesterol 53 mg/dL (40-60) Cholesterol/HDL Ratio 2.3 Vitamin B12 Level 475 pg/mL (247-911) Serum Folate 8.77 ng/ml (3.2-20.0) Thyroid Stimulating Hormone (TSH) 5.609 uIU/mL (0.358-3.74) Glucose (Fingerstick) 238 mg/dL (70-99) 181 mg/dL (70-99) Laboratory Tests Test 01/09/17 20:48 01/10/17 01:15 01/10/17 07:10 01/10/17 11:49 Glucose (Fingerstick) 82 mg/dL (70-99) 238 mg/dL (70-99) Troponin I Quantitative 0.704 ng/mL (0.000-0.055) 0.749 ng/mL (0.000-0.055) Sodium Level 143 mmol/L (136-145) Potassium Level 4.5 mmol/L (3.5-5.1) Chloride Level 103 mmol/L (98-107) Carbon Dioxide Level 35 mmol/L (21-32) Anion Gap 5 (6-14) Blood Urea Nitrogen 41 mg/dL (8-26) Creatinine 2.1 mg/dL (0.7-1.3) Estimated GFR (Cockcroft-Gault) 37.1 Glucose Level 114 mg/dL (70-99) Calcium Level 9.1 mg/dL (8.5-10.1) Magnesium Level 2.0 mg/dL (1.8-2.4) VH-Mid-J-Type Natriuretic Peptide 403 pg/mL (0-449) Triglycerides Level 86 mg/dL (0-150) Cholesterol Level 122 mg/dL (0-200) LDL Cholesterol, Calculated 52 mg/dL (0-100) VLDL Cholesterol, Calculated 17 mg/dL (0-40) Non-HDL Cholesterol Calculated 69 mg/dL (0-129) HDL Cholesterol 53 mg/dL (40-60) Cholesterol/HDL Ratio 2.3 Vitamin B12 Level 475 pg/mL (247-911) Serum Folate 8.77 ng/ml (3.2-20.0) Thyroid Stimulating Hormone (TSH) 5.609 uIU/mL (0.358-3.74) Test 01/10/17 16:24 Glucose (Fingerstick) 181 mg/dL (70-99) ROBIN MACIAS MD Jan 10, 2017 18:46
[2017-01-10 19:43] VITALS: BP_SYST 144; BP_SYST 163; BP_DIAS 69
[2017-01-10] MEDS: ATORVASTATIN CALCIUM 40 MG TABLET. PO SCH (20:17)
[2017-01-10] MEDS: amLODIPine BESYLATE 10 MG TABLET PO SCH (20:17)
[2017-01-10] MEDS: TERAZOSIN 5 MG CAPSULE. PO SCH (20:17)
[2017-01-10 23:28] VITALS: BP 123/68
[2017-01-11] VITALS (21 sets, daily range): BP systolic 114–199; BP diastolic 63–96
[2017-01-11] MEDS: IV NORMAL SALINE 1000ML BAG 1,000 ML IV SCH ×3 (02:03→16:50)
[2017-01-11 03:45] LABS: BASO % 0 % (0-3); EOS % 7 % (0-3); HEMATOCRIT 37.9 % (39.0-53.0); HEMOGLOBIN 12.4 g/dL (13.0-17.5); LYMPH # 1.2 x10^3/uL (1.0-4.8); LYMPH % 41 % (24-48); MEAN CORPUSCULAR HEMOGLOBIN 32 pg (25-35); MEAN CORPUSCULAR HGB CONC 33 g/dL (31-37); MEAN CORPUSCULAR VOLUME 97 fL (79-100); MONO % 14 % (0-9); NEUT % 37 % (31-73); PLATELET COUNT 116 x10^3/uL (140-400); RED BLOOD COUNT 3.92 x10^6/uL (4.30-5.70); RED CELL DISTRIBUTION WIDTH 18.7 % (11.5-14.5); WHITE BLOOD COUNT 2.8 x10^3/uL (4.0-11.0)
[2017-01-11 04:10] LABS: CALCIUM 8.7 mg/dL (8.5-10.1); GFR 39.3; POTASSIUM 3.9 mmol/L (3.5-5.1)
[2017-01-11 04:21] LABS: INR 1.9 (0.8-1.1); PROTHROMBIN TIME PATIENT 20.9 SEC (11.7-14.0)
[2017-01-11] MEDS: INSULIN ASPART 300 UNITS/3 ML INSULN.PEN SQ SCH ×3 (08:00→17:00)
[2017-01-11] MEDS: glipiZIDE ER 2.5 MG TAB.ER.24 PO SCH (08:00)
[2017-01-11] MEDS: carBAMazepine 200 MG TABLET PO SCH ×2 (08:16→20:46)
[2017-01-11] MEDS: cloNIDine HCL 0.2 MG TABLET PO SCH ×2 (08:16→20:46)
[2017-01-11] MEDS: DIVALPROEX DELAYED RELEASE 500 MG TABLET.DR. PO SCH ×2 (08:17→20:46)
[2017-01-11] MEDS: CARVEDILOL 12.5 MG TABLET. PO SCH ×2 (08:18→16:51)
[2017-01-11] MEDS: FUROSEMIDE 40 MG TABLET. PO SCH (08:18)
[2017-01-11] MEDS: ASPIRIN ENTERIC COATED 81 MG TABLET.DR. PO SCH (08:18)
[2017-01-11] MEDS: ALLOPURINOL 100 MG TABLET. PO SCH (08:18)
[2017-01-11] MEDS ORDERED: LIDOCAINE 2% 20 ML VIAL. ONE (11:37)
[2017-01-11] MEDS ORDERED: IODIXANOL 320 MG/ML 100 ML VIAL. ONE (11:38)
--- NOTE | 2017-01-11 11:39 | PDOC ---
Renal-Progress Notes Subjective Notes Notes NONE History of Present Illness Hx of present illness STABLE Vitals Vitals Vital Signs Date Time Temp Pulse Resp B/P (MAP) Pulse Ox O2 Delivery O2 Flow Rate FiO2 01/11/17 10:50 97.4 60 16 133/72 (92) 97 Room Air 97.4 Weight Weight [ ] I.O. Intake and Output Intake and Output 01/11/17 07:00 Intake Total 3115 ml Output Total 1900 ml Balance 1215 ml Intake Oral 1550 ml IV Total 1565 ml Output Urine Total 1900 ml # Voids 3 Labs Labs Laboratory Tests Test 01/10/17 11:49 01/10/17 16:24 01/10/17 18:30 01/10/17 19:00 Glucose (Fingerstick) 238 mg/dL (70-99) 181 mg/dL (70-99) Creatine Kinase 126 U/L (39-308) 25-Hydroxy Vitamin D Total 33.1 ng/mL (30-100) Test 01/10/17 19:25 01/10/17 21:27 01/11/17 02:30 01/11/17 07:56 Heparin Anti-Xa Act, Unfractionated 0.19 IU/mL (0.30-0.70) 0.90 IU/mL (0.30-0.70) Glucose (Fingerstick) 164 mg/dL (70-99) 55 mg/dL (70-99) White Blood Count 2.8 x10^3/uL (4.0-11.0) Red Blood Count 3.92 x10^6/uL (4.30-5.70) Hemoglobin 12.4 g/dL (13.0-17.5) Hematocrit 37.9 % (39.0-53.0) Mean Corpuscular Volume 97 fL (79-100) Mean Corpuscular Hemoglobin 32 pg (25-35) Mean Corpuscular Hemoglobin Concent 33 g/dL (31-37) Red Cell Distribution Width 18.7 % (11.5-14.5) Platelet Count 116 x10^3/uL (140-400) Neutrophils (%) (Auto) 37 % (31-73) Lymphocytes (%) (Auto) 41 % (24-48) Monocytes (%) (Auto) 14 % (0-9) Eosinophils (%) (Auto) 7 % (0-3) Basophils (%) (Auto) 0 % (0-3) Neutrophils # (Auto) 1.1 x10^3uL (1.8-7.7) Lymphocytes # (Auto) 1.2 x10^3/uL (1.0-4.8) Monocytes # (Auto) 0.4 x10^3/uL (0.0-1.1) Eosinophils # (Auto) 0.2 x10^3/uL (0.0-0.7) Basophils # (Auto) 0.0 x10^3/uL (0.0-0.2) Prothrombin Time 20.9 SEC (11.7-14.0) Prothromb Time International Ratio 1.9 (0.8-1.1) Sodium Level 142 mmol/L (136-145) Potassium Level 3.9 mmol/L (3.5-5.1) Chloride Level 103 mmol/L (98-107) Carbon Dioxide Level 33 mmol/L (21-32) Anion Gap 6 (6-14) Blood Urea Nitrogen 35 mg/dL (8-26) Creatinine 2.0 mg/dL (0.7-1.3) Estimated GFR (Cockcroft-Gault) 39.3 Glucose Level 76 mg/dL (70-99) Calcium Level 8.7 mg/dL (8.5-10.1) Valproic Acid (Depakene) Level 78 mcg/mL (50-100) Valproic Acid Last Dose Date Valproic Acid Last Dose Time Test 01/11/17 08:22 Glucose (Fingerstick) 143 mg/dL (70-99) Review of Systems Constitutional: yes: weakness, alert, oriented Ears/Nose/Throat: Yes: no symptom reported Eyes: Yes: no symptom reported Pulmonary: Yes no symptom reported Cardiovascular: Yes no symptom reported Gastrointestional: Yes: constipation Genitourinary: Yes: frequency Musculoskeletal: Yes: muscle stiffness, muscle atrophy Skin: Yes no symptom reported Psychiatric/Neurological: Yes: no symptom reported All Other Systems NEURO-TREMORS AND WEAKNESS Physical Exam General Appearance: no apparent distress Skin: warm Respiratory: bilateral CTA Heart: S1S2 Abdomen: soft, bowel sounds present Genitourinary: bladder flat Extremities: pulses present Neurology: alert, oriented Musculoskeletal: Osteoarthritis Assessment Assessment IMP CKD STAGE 3 TO 4 - CR STABLE AT 2.0 TREMORS NSTEMI DM II HTN ANEMIA PLAN IVF'S CATH TODAY NEURO EVAL AND TX LABS IN AM MARGOT MCNEIL MD Jan 11, 2017 11:39
[2017-01-11 11:43] LABS: ALBUMIN/GLOBULIN RATIO 0.7 (1.0-1.7); CALCIUM 8.8 mg/dL (8.5-10.1); CREATININE 1.9 mg/dL (0.7-1.3); GFR 41.7; POTASSIUM 4.2 mmol/L (3.5-5.1); TOTAL BILIRUBIN 0.2 mg/dL (0.2-1.0); TOTAL PROTEIN 7.1 g/dL (6.4-8.2)
[2017-01-11] MEDS ORDERED: fentaNYL PF VIAL 100 MCG/2 ML VIAL ONE (12:14)
[2017-01-11] MEDS ORDERED: IOHEXOL 300 MG/ML 100ML VIAL. ONE (12:14)
[2017-01-11] MEDS ORDERED: HEPARIN for IV BOLUS 10,000 UNIT/10 ML VIAL. ONE (12:14)
[2017-01-11] MEDS ORDERED: MIDAZOLAM HCL/PF 2 MG/2 ML VIAL. ONE (12:14)
[2017-01-11] MEDS ORDERED: NITROGLYCERIN 200 MCG/2 ML SYRINGE FOR CATH/VASC LAB. ONE (12:14)
[2017-01-11] MEDS ORDERED: VERAPAMIL 5 MG/2 ML VIAL. ONE (12:14)
[2017-01-11] MEDS ORDERED: LIDOCAINE 2% 20 ML VIAL. IJ ONE (12:15)
[2017-01-11] MEDS ORDERED: HEPARIN for IV BOLUS 10,000 UNIT/10 ML VIAL. IART ONE (12:15)
[2017-01-11] MEDS ORDERED: fentaNYL PF VIAL 100 MCG/2 ML VIAL IV ONE (12:15)
[2017-01-11] MEDS ORDERED: MIDAZOLAM HCL/PF 2 MG/2 ML VIAL. IV ONE (12:15)
[2017-01-11] MEDS ORDERED: NITROGLYCERIN 200 MCG/2 ML SYRINGE FOR CATH/VASC LAB. IART ONE (12:15)
[2017-01-11] MEDS ORDERED: VERAPAMIL 5 MG/2 ML VIAL. IART ONE (12:15)
--- NOTE | 2017-01-11 12:46 | PDOC ---
MODERATE SEDATION ASSESSMENT RISKS/ALTERNATIVES Risks/Alternatives Risks and alternatives of this type of sedation and procedure discussed with: RISK/ALTERNATIVES: Patient H & P ON CHART H & P H & P on chart and reviewed for co-morbid conditions and appropriate labs. H&P ON CHART: Yes STATUS PREG STATUS ASSESSED: N/A MEDS/ALLERGIES REVIEWED Meds/Allergies Reviewed Medications and Allergies including time and route of recently administered narcotics and sedatives. MEDS/ALLERGIES REVIEWED: Yes ASA RATING ASA RATING: II AIRWAY ASSESSMENT Airway Assessment Airway patency, oral function limitations, presence of caps, crowns, dentures, partials, and ability to extend neck assessed. AIRWAY ASSESSMENT: Yes MALLAMPATI SCORE MALLAMPATI SCORE: II PRE-SEDATION ASSESSMENT PRE-SEDATION ASSESSMENT: Yes THAIS LAMBERT MD Jan 11, 2017 12:46
[2017-01-11] MEDS ORDERED: IOHEXOL 300 MG/ML 100ML VIAL. IART ONE (13:00)
[2017-01-11] MEDS ORDERED: CONTRAST GIVEN MC PRN (13:00)
--- NOTE | 2017-01-11 13:33 | CARD ---
APPROVED REPORT Procedure(s) performed: Left heart catheterization and selective coronary angiography via right trans radial approach INDICATION The indication(s) include : non-STEMI . PROCEDURE NARRATIVE After explaining the risks, benefits and alternative options, informed consent was obtained from ramesh ent. Patient was brought to the cardiac Reimbursement Spec and right wrist was prepped and draped in the usual fashion after confirming a positive modified Omar's test. Arterial access was obtained in the righ t radial artery and a 6 [place]yanese sheath was inserted. 6 [place] Jc catheter was used to perform marcos ective angiography of the left and right coronary arteries. Left ventriculography was not performed d ue to elevated creatinine level. LVEDP and transaortic gradients were measured. Patient tolerated the procedure well. Hemostasis was achieved using TR band. There were no immediate complications. The following findings were noted. FINDINGS 1. Hemodynamics: Left ventricular end-diastolic pressure of 19 mmHg. No pullback gradient across th e aortic valve.. 2. Coronary angiography: a. The left main coronary artery arose from the left sinus of Valsalva, gave rise to the left anteri or descending and left circumflex arteries and did not show any significant stenosis. b. The left anterior descending artery showed 40% stenosis in the mid to distal segment. c. The left circumflex artery showed widely patent stent in the midsegment without any significant s tenosis. d. The right coronary artery was a dominant vessel arising from the right sinus of Valsalva that charu wed 30% stenosis in the proximal to midsegment. Conclusion Nonobstructive coronary artery disease. The previously placed stent in the left circumflex artery is widely patent. Recommendations Patient's slight troponin elevation is probably secondary to non-STEMI type 2/demand ischemia. Recommend optimization of medical therapy.
--- NOTE | 2017-01-11 13:50 | PDOC ---
PROGRESS NOTES Assessment Assessment Chronic tremor or jerking like movements x 3 months per his .. Gait instability x 3 years, worse recently x 3 months. PD not likely. HTN HLD CAD Seizure. DM CKD Renal failure. Hypothyroidism? Dementia features. Pacemaker in site. RECOMMENDATIONS/PLAN: C-Spine CT w/o contrast. MRI contraindicated due to pacemaker. Treat medical diseases. Continue Depakote 500 mg bid. OT/PT. Discussed with his at bedside. EEG on 01/11/17: The posterior dominant rhythm of 6-7 Hz/s that is slow for age. No seizure activity noted. HISTORY OF THE PRESENT ILLNESS: 76-y-old male patient with above medical diseases has been having symptoms of abnormal tremor like or jerking movements in hands. He also has gait instability for about 3 years but became worse in the recent months. Patient was unable to provide detailed information. PAST MEDICAL HISTORY Cardiovascular: CAD, CHF, HTN, Hyperlipidemia, Other (SSS; PAflultter; PFO) CENTRAL NERVOUS SYSTEM: CVA, Seizure Heme/Onc: Other (dvt) Musculoskeletal: Osteoarthritis Rheumatologic: No pertinent hx Infectious disease: No pertinent hx Renal/: Chronic renal insuff (CKD3), Benign prostatic enlarg. Endocrine: Diabetes (2) PAST SURGICAL HISTORY Pacemaker, Other (PCI/BMS to LCx; IVC filter, back surgery and jaw surgery; bilateral LE venous RF ablation) FAMILY HISTORY Heart Disease SOCIAL HISTORY Smoke: No ALCOHOL: none Drugs: None Lives: with Family ALLERGY: Reviewed. MEDICATIONS: Refer to MAR REVIEW OF SYSTEMS: Constitutional: Mild malnutrition. Head: No traumatic brain or head injury. Skin: No edema, or rash. Ear: No infection Eyes: No vision loss or color blindness. Nose: No bleeding or purulent discharges. Hearing: Hearing decrease. Neck: No injury. Cardiac: HTN, HLD. Pulmonary: No pneumonia,. GI: No GI ulcer, GI bleeding. Urinary/genital: UTI. Endocrinologic: Diabetes Mellitus. Skeletomuscular: Generalized weakness. Neurological: see HP. Psychiatric: Denies drug use/abuse. Otherwise, not [id number] review of systems. PHYSICAL EXAMINATION: General appearance is in subacute distress. HEENT: Normocephalic and nontraumatic. Eyes, nose, ears, and throat are unremarkable. Neck is supple. No lymphadenopathy. No crepitus. Cardiovascular: S1, S2, regular rate and rhythm. Pulmonary: Clear to auscultation bilaterally. Abdomen: Bowel sounds are positive. Extremities: No rash, lesions, or edema. No restriction of range of motion NEUROLOGICAL EXAMINATION: Awake. Oriented to place and person not to time.. PERRL. EOMI. CN: no focal findings. Muscle tone: within normal. Muscle strength: 4 DTR: 2- Plantar reflex: Neutral response bilaterally Gait: not examined in bed. Sensory exam: no abnormal findings. No acute cerebellar signs elicited. F-T-N test fine. Objective Objective Vital Signs Date Time Temp Pulse Resp B/P (MAP) Pulse Ox O2 Delivery O2 Flow Rate FiO2 01/11/17 12:50 66 20 96 Room Air 2.0 01/11/17 12:45 182/96 01/11/17 10:50 97.4 97.4 Intake and Output 01/11/17 07:00 Intake Total 3115 ml Output Total 1900 ml Balance 1215 ml Intake Oral 1550 ml IV Total 1565 ml Output Urine Total 1900 ml # Voids 3 Vitals Signs Vitals VS - Last 72 Hours, by Label Date Time Temp Pulse Resp B/P (MAP) Pulse Ox O2 Delivery O2 Flow Rate FiO2 01/11/17 12:50 66 20 96 Room Air 2.0 01/11/17 12:45 68 182/96 01/11/17 12:15 18 97 Nasal Cannula 2.0 01/11/17 10:50 97.4 60 16 133/72 (92) 97 Room Air 97.4 01/11/17 08:18 155/75 01/11/17 08:16 155/75 01/11/17 08:10 Room Air 01/11/17 08:10 Room Air 01/11/17 07:00 97.5 69 17 155/75 (101) 96 Room Air 97.5 01/11/17 03:55 98.2 64 16 150/64 (92) 95 Room Air 98.2 01/10/17 23:28 97.8 63 16 123/68 (86) 97 Room Air 97.8 01/10/17 20:18 77 163/69 01/10/17 20:17 77 163/69 01/10/17 20:17 77 163/69 01/10/17 19:43 97.9 77 16 163/69 (100) 97 Room Air 97.9 01/10/17 19:28 Room Air 01/10/17 16:38 71 152/78 01/10/17 15:00 97.6 66 16 159/75 (103) 97 Room Air 97.6 01/10/17 11:25 18 Room Air 01/10/17 11:00 97.5 82 16 151/67 (95) 96 Room Air 97.5 01/10/17 10:23 67 153/70 01/10/17 10:22 18 93 Room Air 01/10/17 08:00 Room Air 01/10/17 07:00 97.6 67 17 153/70 (97) 93 Room Air 97.6 Laboratory Laboratory Laboratory Tests Test 01/10/17 16:24 01/10/17 18:30 01/10/17 19:00 01/10/17 19:25 Glucose (Fingerstick) 181 mg/dL (70-99) Creatine Kinase 126 U/L (39-308) 25-Hydroxy Vitamin D Total 33.1 ng/mL (30-100) Heparin Anti-Xa Act, Unfractionated 0.19 IU/mL (0.30-0.70) Test 01/10/17 21:27 01/11/17 02:30 01/11/17 07:56 01/11/17 08:22 Glucose (Fingerstick) 164 mg/dL (70-99) 55 mg/dL (70-99) 143 mg/dL (70-99) White Blood Count 2.8 x10^3/uL (4.0-11.0) Red Blood Count 3.92 x10^6/uL (4.30-5.70) Hemoglobin 12.4 g/dL (13.0-17.5) Hematocrit 37.9 % (39.0-53.0) Mean Corpuscular Volume 97 fL (79-100) Mean Corpuscular Hemoglobin 32 pg (25-35) Mean Corpuscular Hemoglobin Concent 33 g/dL (31-37) Red Cell Distribution Width 18.7 % (11.5-14.5) Platelet Count 116 x10^3/uL (140-400) Neutrophils (%) (Auto) 37 % (31-73) Lymphocytes (%) (Auto) 41 % (24-48) Monocytes (%) (Auto) 14 % (0-9) Eosinophils (%) (Auto) 7 % (0-3) Basophils (%) (Auto) 0 % (0-3) Neutrophils # (Auto) 1.1 x10^3uL (1.8-7.7) Lymphocytes # (Auto) 1.2 x10^3/uL (1.0-4.8) Monocytes # (Auto) 0.4 x10^3/uL (0.0-1.1) Eosinophils # (Auto) 0.2 x10^3/uL (0.0-0.7) Basophils # (Auto) 0.0 x10^3/uL (0.0-0.2) Prothrombin Time 20.9 SEC (11.7-14.0) Prothromb Time International Ratio 1.9 (0.8-1.1) Heparin Anti-Xa Act, Unfractionated 0.90 IU/mL (0.30-0.70) Sodium Level 142 mmol/L (136-145) Potassium Level 3.9 mmol/L (3.5-5.1) Chloride Level 103 mmol/L (98-107) Carbon Dioxide Level 33 mmol/L (21-32) Anion Gap 6 (6-14) Blood Urea Nitrogen 35 mg/dL (8-26) Creatinine 2.0 mg/dL (0.7-1.3) Estimated GFR (Cockcroft-Gault) 39.3 Glucose Level 76 mg/dL (70-99) Calcium Level 8.7 mg/dL (8.5-10.1) Valproic Acid (Depakene) Level 78 mcg/mL (50-100) Valproic Acid Last Dose Date Valproic Acid Last Dose Time Test 01/11/17 11:05 Heparin Anti-Xa Act, Unfractionated 0.46 IU/mL (0.30-0.70) Sodium Level 144 mmol/L (136-145) Potassium Level 4.2 mmol/L (3.5-5.1) Chloride Level 104 mmol/L (98-107) Carbon Dioxide Level 36 mmol/L (21-32) Anion Gap 4 (6-14) Blood Urea Nitrogen 32 mg/dL (8-26) Creatinine 1.9 mg/dL (0.7-1.3) Estimated GFR (Cockcroft-Gault) 41.7 BUN/Creatinine Ratio 17 (6-20) Glucose Level 87 mg/dL (70-99) Calcium Level 8.8 mg/dL (8.5-10.1) Total Bilirubin 0.2 mg/dL (0.2-1.0) Aspartate Amino Transf (AST/SGOT) 45 U/L (15-37) Alanine Aminotransferase (ALT/SGPT) 22 U/L (16-63) Alkaline Phosphatase 46 U/L (46-116) Total Protein 7.1 g/dL (6.4-8.2) Albumin 3.0 g/dL (3.4-5.0) Albumin/Globulin Ratio 0.7 (1.0-1.7) Medication Medications Current Medications Calcitriol (Rocaltrol) 0.25 mcg DAILY16 PO Last administered on 01/10/17t 16: 38; Start 01/10/17 at 16:00 Carvedilol (Coreg) 12.5 mg BIDWMEALS PO Last administered on 01/11/17 08:18; Start 01/10/17 at 17:00 Fentanyl Citrate (Fentanyl 2ml Vial) 100 mcg 1X ONCE IV ; Start 01/11/17 at 12 :15; Stop 01/11/17 at 12:41; Status DC Fentanyl Citrate (Fentanyl 2ml Vial) 100 mcg STK-MED ONCE .ROUTE ; Start at 12:14; Stop 01/11/17 at 12:15; Status DC Heparin Sodium (Porcine) (Heparin Sodium) 2,500 unit 1X ONCE IART Last administered on 01/11/17t 12:48; Start 01/11/17 at 12:15; Stop 01/11/17 at 12 :41; Status DC Heparin Sodium (Porcine) (Heparin Sodium) 10,000 unit STK-MED ONCE .ROUTE ; Start 01/11/17 at 12:14; Stop 01/11/17 at 12:15; Status DC Heparin Sodium/ Sodium Chloride 500 ml @ As Directed STK-MED ONCE .ROUTE ; Start 01/11/17 at 11:37; Stop 01/11/17 at 11:38; Status DC Heparin Sodium/ Sodium Chloride 1,000 unit 1X ONCE IART Last administered on 01/11/17t 12:44; Start 01/11/17 at 12:15; Stop 01/11/17 at 12:41; Status DC Info (Do NOT chart on this entry -- for MONITORING) 1 each PRN DAILY PRN MC SEE COMMENTS; Start 01/11/17 at 13:00; Stop 01/13/17 at 12:59 Iodixanol (Visipaque 320) 100 ml STK-MED ONCE .ROUTE ; Start 01/11/17 at 11:38 ; Stop 01/11/17 at 11:39; Status DC Iohexol (Omnipaque 300 Mg/ml) 100 ml 1X ONCE IART Last administered on t 12:52; Start 01/11/17 at 13:00; Stop 01/11/17 at 13:01; Status DC Iohexol (Omnipaque 300 Mg/ml) 100 ml STK-MED ONCE .ROUTE ; Start 01/11/17 at 12 :14; Stop 01/11/17 at 12:15; Status DC Lidocaine HCl 20 ml 1X ONCE IJ Last administered on 01/11/17t 12:46; Start 01/11/17 at 12:15; Stop 01/11/17 at 12:41; Status DC Lidocaine HCl 20 ml STK-MED ONCE .ROUTE ; Start 01/11/17 at 11:37; Stop at 11:38; Status DC Midazolam HCl (Versed) 2 mg 1X ONCE IV ; Start 01/11/17 at 12:15; Stop at 12:41; Status DC Midazolam HCl (Versed) 2 mg STK-MED ONCE .ROUTE ; Start 01/11/17 at 12:14; Stop 01/11/17 at 12:15; Status DC Nitroglycerin (Nitroglycerin) 200 mcg 1X ONCE IART Last administered on t 12:45; Start 01/11/17 at 12:15; Stop 01/11/17 at 12:41; Status DC Nitroglycerin (Nitroglycerin) 200 mcg STK-MED ONCE .ROUTE ; Start 01/11/17 at 12:14; Stop 01/11/17 at 12:15; Status DC Verapamil HCl (Verapamil) 2.5 mg 1X ONCE IART Last administered on 01/11/17t 12:45; Start 01/11/17 at 12:15; Stop 01/11/17 at 12:41; Status DC Verapamil HCl (Verapamil) 5 mg STK-MED ONCE .ROUTE ; Start 01/11/17 at 12:14; Stop 01/11/17 at 12:15; Status DC Warfarin Sodium (Coumadin) 5 mg DAILY16 PO ; Start 01/10/17 at 16:00; Stop at 16:00; Status DC Comment Review of Relevant I have reviewed the following items jay (where applicable) has been applied. ROBIN MACIAS MD Jan 11, 2017 13:50
[2017-01-11 15:31] LABS: FREE T4 0.49 ng/dL (0.76-1.46)
[2017-01-11] MEDS: CALCITRIOL 0.25 MCG CAPSULE. PO SCH (16:51)
--- NOTE | 2017-01-11 17:04 | RAD ---
CT of the cervical spine without contrast, 01/11/2017: History: Gait instability Noncontrast scans were obtained with multiplanar reconstructions produced. Due to the patient's cervical kyphosis the routine axial images are not truly axial relative to the spinal canal. Angled axial reconstructions were attempted but could not be successfully performed at this time due to technical problems. Additional reconstructions will be performed and an addendum report issued if this results in additional findings. There is disc space narrowing with extensive anterior and posterior spurring at multiple levels, most severe in the lower cervical spine. There are bridging osteophytes with partial fusion of the vertebral bodies from C5 through T1. There are are moderate hypertrophic degenerative changes involving multiple facet joints bilaterally. There is considerable degenerative change at the articulation between the odontoid process in the anterior arch of C1 with partial calcification of the transverse ligament along the posterior aspect of the odontoid process. The combination of findings is causing mild to moderate central spinal stenosis at several levels. At C2-3 the thecal sac measures approximately 8 mm in AP diameter at the midline. At C3-4 the thecal sac measures 5-6 mm in AP diameter at the midline. There is foraminal stenosis at multiple levels bilaterally, most severe at C3-4 and C4-5. No acute fracture or dislocation is identified. There is moderate calcific plaquing at the carotid bifurcations. IMPRESSION: 1. Moderately severe multilevel degenerative change as described above. 2. Moderate central spinal stenosis and severe bilateral foraminal stenosis at C3-4. 3. No acute bony abnormality is detected. PQRS Compliance Statement: One or more of the following individualized dose reduction techniques were utilized for this examination: 1. Automated exposure control 2. Adjustment of the mA and/or kV according to patient size 3. Use of iterative reconstruction technique
--- NOTE | 2017-01-11 18:12 | EEG ---
DATE OF SERVICE: 01/11/2017 EEG NUMBER: [id number] OBJECTIVE: This is a 76-year-old male patient with history of seizure and mental status changes. EEG was requested to evaluate seizure activity. METHODS: Twenty electrodes were applied according to the international 10-20 electrode placement system. EKG monitoring, hyperventilation, intermittent photic stimulation, monopolar and bipolar montages are routinely used. The record was obtained on a digital system with video monitoring. MEDICATION: Depakote. FINDINGS: 1. Background: The patient was recorded in awake and drowsy states. No actual sleep state was recorded. The overall background amplitude is 10-20 microvolts. A posterior dominant rhythm of 6-7 Hz is observed. 2. Abnormalities: No specific epileptiform discharge or electrographic seizure is seen. No focal or diffuse slowing. 3. Activation: Hyperventilation was performed with good efforts and normal response. Intermittent photic stimulation was performed with photic driving. No specific epileptiform discharge or electrographic seizure induced by hyperventilation or intermittent photic stimulation. IMPRESSION: This EEG is an abnormal study for the awake and drowsy states. No actual sleep state was recorded. The posterior dominant rhythm of 6-7 Hz is slow for age. No focal, lateralizing, specific epileptiform discharge or electrographic seizure is seen. ROBIN MACIAS MD DR: VELMA/jj JOB#: [id number] / [id number] JENNA
[2017-01-11] MEDS: amLODIPine BESYLATE 10 MG TABLET PO SCH (20:45)
[2017-01-11] MEDS: ATORVASTATIN CALCIUM 40 MG TABLET. PO SCH (20:46)
[2017-01-11] MEDS: TERAZOSIN 5 MG CAPSULE. PO SCH (20:47)
[2017-01-12 03:35] LABS: CALCIUM 8.5 mg/dL (8.5-10.1); CREATININE 1.9 mg/dL (0.7-1.3); GFR 41.7; POTASSIUM 3.6 mmol/L (3.5-5.1)
[2017-01-12 03:45] VITALS: BP 115/55
[2017-01-12 07:00] VITALS: BP 163/71
[2017-01-12] MEDS: INSULIN ASPART 300 UNITS/3 ML INSULN.PEN SQ SCH ×3 (08:00→17:00)
[2017-01-12] MEDS: ALLOPURINOL 100 MG TABLET. PO SCH (09:00)
[2017-01-12] MEDS: carBAMazepine 200 MG TABLET PO SCH ×2 (09:28→21:15)
[2017-01-12] MEDS: FUROSEMIDE 40 MG TABLET. PO SCH (09:29)
[2017-01-12] MEDS: glipiZIDE ER 2.5 MG TAB.ER.24 PO SCH (09:29)
[2017-01-12] MEDS: DIVALPROEX DELAYED RELEASE 500 MG TABLET.DR. PO SCH ×2 (09:29→21:15)
[2017-01-12] MEDS: ASPIRIN ENTERIC COATED 81 MG TABLET.DR. PO SCH (09:29)
[2017-01-12] MEDS: cloNIDine HCL 0.2 MG TABLET PO SCH ×2 (09:30→21:14)
[2017-01-12] MEDS: CARVEDILOL 12.5 MG TABLET. PO SCH ×2 (09:30→16:59)
[2017-01-12 11:00] VITALS: BP 119/56
--- NOTE | 2017-01-12 11:22 | PDOC ---
SUBJECTIVE ROS CKD III DOing OK overall CVS: no Orthopnea, no CP RESP: no SOB, no HERNANDEZ GI: no Nausea, no Vomiting : no Dysuria, no Urgency OBJECTIVE Vital Signs Vital Signs Date Time Temp Pulse Resp B/P (MAP) Pulse Ox O2 Delivery O2 Flow Rate FiO2 01/12/17 09:30 72 163/71 01/12/17 08:00 Room Air 01/12/17 07:00 98.1 19 94 98.1 01/11/17 12:50 2.0 I & 0 Intake and Output 01/13/17 07:00 Intake Total 600 ml Balance 600 ml Intake Oral 600 ml PHYSICAL EXAM Physical Exam GEN: Awake, Oriented x 3, In no distress EYES: Vision Unchanged, Conjunctiva Normal EN: No EN Drainage, Mucous Membranes moist NECK: no JVD, no JVP, Supple, no Thyromegaly CVS: S1S2, ? soft Murmur, No Gallop, No Rub,no Edema RESP: no Rales, no Rhonchi,no Acc. Muscle Use GI: BS + ve, NO Bruit, Non Tender, Non Distended : n CVA tenderness, no Suprapubic Tenderness Tremors DIAGNOSIS/ASSESSMENT Assessment & Plan CKD STAGE 3 TO 4 WITH STABLE CR OF 2.2 yuri (better after IVF) - Current fluid and E-lyte status does not necessitate emergent need for dialysis. Will re- evaluate for dialysis in the am CAD WITH CM - EF 20% - appears to be clnically compensated; No worsening of Creat per se after LHC ?NSTEMI - LHC was "clean" Tremors - doubt Uremic - can do 24-hr Urine if needed HypoThyroid state - defer to Primary team Discussed Plan of Care with family () at bedside Problems: COMMENT/RELEVANT DATA Meds Current Medications Medications (Trade) Dose Ordered Sig/Rian Start Time Stop Time Status Last Admin Dose Admin Acetaminophen/ Hydrocodone Bitart (Lortab 5/325) 1 tab PRN Q6HRS PRN 01/10/17 00:00 01/10/17 10:22 1 TAB Allopurinol (Zyloprim) 100 mg DAILY 01/10/17 09:00 01/12/17 09:00 100 MG Amlodipine Besylate (Norvasc) 10 mg HS 01/09/17 21:00 01/11/17 20:45 10 MG Aspirin (Children'S Aspirin) 324 mg 1X ONCE 01/09/17 19:15 01/09/17 19:16 DC 01/09/17 19:10 324 MG Aspirin (Ecotrin) 81 mg DAILY08 01/10/17 08:00 01/12/17 09:29 81 MG Atorvastatin Calcium (Lipitor) 40 mg HS 01/09/17 21:00 01/11/17 20:46 40 MG Calcitriol (Rocaltrol) 0.25 mcg DAILY16 01/10/17 16:00 01/11/17 16:51 0.25 MCG Carbamazepine (TEGretol) 400 mg BID 01/09/17 21:00 01/12/17 09:28 400 MG Carvedilol (Coreg) 12.5 mg BIDWMEALS 01/10/17 17:00 01/12/17 09:30 12.5 MG Clonidine HCl (Catapres) 0.2 mg BID 01/09/17 21:00 01/12/17 09:30 0.2 MG Dextrose (Dextrose 50%-Water Syringe) 12.5 gm PRN Q15MIN PRN 01/09/17 21:00 01/11/17 08:10 12.5 GM Divalproex Sodium (Depakote) 500 mg BID 01/09/17 21:00 01/12/17 09:29 500 MG Fentanyl Citrate (Fentanyl 2ml Vial) 100 mcg 1X ONCE 01/11/17 12:15 01/11/17 12:41 DC Furosemide (Lasix) 40 mg DAILY 01/10/17 09:00 01/12/17 09:29 40 MG Glipizide (Glucotrol Er) 10 mg DAILY08 01/10/17 08:00 01/12/17 09:29 10 MG Heparin Sodium (Porcine) (Heparin Sodium) 2,500 unit 1X ONCE 01/11/17 12:15 01/11/17 12:41 DC 01/11/17 12:48 2,500 UNIT Heparin Sodium/ Dextrose 500 ml @ 19.1 mls/hr CONT PRN 01/10/17 10:00 01/11/17 12:47 DC 01/10/17 12:44 19.1 MLS/HR Heparin Sodium/ Sodium Chloride 1,000 unit 1X ONCE 01/11/17 12:15 01/11/17 12:41 DC 01/11/17 12:44 1,000 UNIT Info (Do NOT chart on this entry -- for MONITORING) 1 each PRN DAILY PRN 01/11/17 13:00 01/13/17 12:59 Insulin Aspart (NovoLOG) 0-5 UNITS TIDWMEALS 01/10/17 08:00 01/10/17 18:34 2 UNITS Iodixanol (Visipaque 320) 100 ml STK-MED ONCE 01/11/17 11:38 01/11/17 11:39 DC Iohexol (Omnipaque 300 Mg/ml) 100 ml 1X ONCE 01/11/17 13:00 01/11/17 13:01 DC 01/11/17 12:52 101 ML Lidocaine HCl 20 ml 1X ONCE 01/11/17 12:15 01/11/17 12:41 DC 01/11/17 12:46 1 ML Midazolam HCl (Versed) 2 mg 1X ONCE 01/11/17 12:15 01/11/17 12:41 DC Morphine Sulfate 2 mg PRN Q2HR PRN 01/09/17 19:15 01/10/17 19:14 DC Nitroglycerin (Nitroglycerin) 200 mcg 1X ONCE 01/11/17 12:15 01/11/17 12:41 DC 01/11/17 12:45 200 MCG Ondansetron HCl (Zofran) 4 mg PRN Q8HRS PRN 01/09/17 19:15 01/10/17 19:14 DC Sodium Polystyrene Sulfonate (Kayexalate) 30 gm 1X ONCE 01/10/17 11:30 01/10/17 11:31 DC 01/10/17 12:36 30 GM Sodium Chloride 1,000 ml @ 75 mls/hr [id number] 01/10/17 12:00 01/11/17 19:12 DC 01/11/17 16:50 75 MLS/HR Terazosin HCl (Hytrin) 5 mg HS 01/09/17 21:00 01/11/17 20:47 5 MG Verapamil HCl (Verapamil) 2.5 mg 1X ONCE 01/11/17 12:15 01/11/17 12:41 DC 01/11/17 12:45 2.5 MG Warfarin Sodium (Coumadin Per Physician) 1 each PRN DAILY PRN 01/09/17 21:15 01/10/17 09:53 DC Warfarin Sodium (Coumadin) 5 mg DAILY16 01/10/17 16:00 01/10/17 16:00 DC Lab Laboratory Tests Test 01/11/17 16:24 01/11/17 20:44 01/12/17 02:15 01/12/17 08:01 Glucose (Fingerstick) 151 mg/dL (70-99) 185 mg/dL (70-99) 78 mg/dL (70-99) Sodium Level 140 mmol/L (136-145) Potassium Level 3.6 mmol/L (3.5-5.1) Chloride Level 103 mmol/L (98-107) Carbon Dioxide Level 34 mmol/L (21-32) Anion Gap 3 (6-14) Blood Urea Nitrogen 36 mg/dL (8-26) Creatinine 1.9 mg/dL (0.7-1.3) Estimated GFR (Cockcroft-Gault) 41.7 Glucose Level 110 mg/dL (70-99) Calcium Level 8.5 mg/dL (8.5-10.1) Test 01/12/17 11:00 Glucose (Fingerstick) 158 mg/dL (70-99) GARY VENEGAS MD Jan 12, 2017 11:22
--- NOTE | 2017-01-12 12:23 | PDOC ---
SUBJECTIVE Subjective Pt is accompanied by did most of the talking. Pt is feeling well today, no acute complaints. is very interested in pt's tremor being treated. They are not interested in SNF; they are hoping to do physical therapy at home. OBJECTIVE Vital Signs Vital Signs Date Time Temp Pulse Resp B/P (MAP) Pulse Ox O2 Delivery O2 Flow Rate FiO2 01/12/17 11:00 98.1 68 19 119/56 (77) 92 Room Air 98.1 01/12/17 09:30 72 163/71 01/12/17 09:30 72 163/71 01/12/17 08:00 Room Air 01/12/17 07:00 98.1 68 19 163/71 (101) 94 Room Air 98.1 01/12/17 03:45 98.1 63 18 115/55 (75) 94 Room Air 98.1 01/11/17 23:25 98.1 67 20 115/63 (80) 94 Room Air 98.1 01/11/17 20:47 73 161/82 01/11/17 20:46 73 161/82 01/11/17 20:45 73 161/82 01/11/17 19:45 98.9 73 19 161/82 (108) 94 Room Air 98.9 01/11/17 19:40 Room Air 01/11/17 18:30 70 174/92 (119) 01/11/17 18:00 70 161/84 (109) 01/11/17 17:00 70 160/80 (106) 01/11/17 16:51 70 01/11/17 16:00 72 128/72 (90) 01/11/17 15:30 80 178/94 (122) 01/11/17 14:45 65 158/74 (102) 01/11/17 14:38 97.5 68 17 156/81 (106) 93 Room Air 97.5 01/11/17 14:30 70 164/95 (118) 01/11/17 14:15 69 149/87 (107) 01/11/17 14:00 70 159/81 (107) 01/11/17 13:45 70 132/76 (94) 01/11/17 13:30 69 114/66 (82) 01/11/17 13:15 68 145/75 (98) 01/11/17 13:02 68 178/81 (113) 01/11/17 13:00 66 199/96 (130) 01/11/17 12:50 66 20 96 Room Air 2.0 01/11/17 12:45 68 182/96 01/11/17 12:15 18 97 Nasal Cannula 2.0 I & O Intake and Output 01/12/17 07:00 Intake Total 1395 ml Output Total 400 ml Balance 995 ml Intake Oral 400 ml IV Total 995 ml Output Urine Total 400 ml # Voids 3 PHYSICAL EXAM Physical Exam GEN: NAD, AOx3, sometimes has hard time finding words or following thoughts HEENT: MMM, EOMI, no scleral icterus/injection Cardiac: RRR, no M/R/G, distant heart tones Lungs: CTAB, regular breathing rate and effort Abd: soft, non distended, NTTP Ext: no erythema LE bilaterally, 1+ pitting edema LE bilaterally Nuero: essential tremor ASSESSMENT/PLAN Assessment/Plan Pt is a 76yo AAM admitted for weakness and tremor 1)Weakness- cardiac cath showed nonobstructive CAD. Likely chronic and progressive. Some spinal stenosis seen which could be contributing as well. Strongly encouraged pt and his for pt to go to SNF but they are wanting to go home with PT/OT 2)Essential tremor- interested in pt being started on treatment. EEG performed this admission 3)Hx of seizures- pt continued on Depakote 500mg BID and Tegretol 400mg BID 4)HTN- moderately controlled. Pt currently receiving Carvedilol 12.5mg BID, Lasix 40mg, Clonidine 0.2mg BID, Norvasc 10mg 5)DM2- HbA1C pending, appears to be well controlled. Pt currently receiving Glipizide 10mg and SSI 6)HLD- pt continued on Atorvastatin 7)Paroxysmal afib 8)History of DVT in the left leg- restart Coumadin per Cardiology 9)Chronic kidney disease stage 3 to 4 with baseline creatinine of 2.3, Cr currently 1.9 10)Hypothyroidism- new diagnosis. Start Levothyroxine 11)Leukopenia- chronic. 12)Anemia- chronic, stable 13)Thrombocytopenia- mild, no active bleeding Problems: COMMENT Lab Laboratory Tests Test 01/11/17 16:24 01/11/17 20:44 01/12/17 02:15 11/18/17 08:01 Glucose (Fingerstick) 151 mg/dL (70-99) 185 mg/dL (70-99) 78 mg/dL (70-99) Sodium Level 140 mmol/L (136-145) Potassium Level 3.6 mmol/L (3.5-5.1) Chloride Level 103 mmol/L (98-107) Carbon Dioxide Level 34 mmol/L (21-32) Anion Gap 3 (6-14) Blood Urea Nitrogen 36 mg/dL (8-26) Creatinine 1.9 mg/dL (0.7-1.3) Estimated GFR (Cockcroft-Gault) 41.7 Glucose Level 110 mg/dL (70-99) Calcium Level 8.5 mg/dL (8.5-10.1) Test 01/12/17 11:00 Glucose (Fingerstick) 158 mg/dL (70-99) JOSESITO AMADO MD Jan 12, 2017 12:23
--- NOTE | 2017-01-12 14:51 | PDOC ---
PROGRESS NOTES Assessment Assessment Chronic tremor or jerking like movements x 3 months per his .. Gait instability x 3 years, worse recently x 3 months. PD not likely. HTN HLD CAD Seizure. DM CKD Renal failure. Hypothyroidism. Dementia features. Pacemaker in site. Moderate severe C-spine stenosis. Degenerative spine disease. Cognitive impairment. RECOMMENDATIONS/PLAN: Treat medical diseases. Continue Depakote 500 mg bid. Treat hypothyroidism. OT/PT, continue as outpatient. Discussed with his in all detail again at bedside on 01/12/17. EEG on 01/11/17: The posterior dominant rhythm of 6-7 Hz/s that is slow for age. No seizure activity noted. HISTORY OF THE PRESENT ILLNESS: 76-y-old male patient with above medical diseases has been having symptoms of abnormal tremor like or jerking movements in hands. He also has gait instability for about 3 years but became worse in the recent months. Patient was unable to provide detailed information. Patient stated he did not surgical consultation or intervention for his C-spine stenosis. PAST MEDICAL HISTORY Cardiovascular: CAD, CHF, HTN, Hyperlipidemia, Other (SSS; PAflultter; PFO) CENTRAL NERVOUS SYSTEM: CVA, Seizure Heme/Onc: Other (dvt) Musculoskeletal: Osteoarthritis Rheumatologic: No pertinent hx Infectious disease: No pertinent hx Renal/: Chronic renal insuff (CKD3), Benign prostatic enlarg. Endocrine: Diabetes (2) PAST SURGICAL HISTORY Pacemaker, Other (PCI/BMS to LCx; IVC filter, back surgery and jaw surgery; bilateral LE venous RF ablation) FAMILY HISTORY Heart Disease SOCIAL HISTORY Smoke: No ALCOHOL: none Drugs: None Lives: with Family ALLERGY: Reviewed. MEDICATIONS: Refer to [facility] REVIEW OF SYSTEMS: Constitutional: Mild malnutrition. Head: No traumatic brain or head injury. Skin: No edema, or rash. Ear: No infection Eyes: No vision loss or color blindness. Nose: No bleeding or purulent discharges. Hearing: Hearing decrease. Neck: No injury. Cardiac: HTN, HLD. Pulmonary: No pneumonia,. GI: No GI ulcer, GI bleeding. Urinary/genital: UTI. Endocrinologic: Diabetes Mellitus. Skeletomuscular: Generalized weakness. Neurological: see HP. Psychiatric: Denies drug use/abuse. Otherwise, not [id number] review of systems. PHYSICAL EXAMINATION: General appearance is in subacute distress. HEENT: Normocephalic and nontraumatic. Eyes, nose, ears, and throat are unremarkable. Neck is supple. No lymphadenopathy. No crepitus. Cardiovascular: S1, S2, regular rate and rhythm. Pulmonary: Clear to auscultation bilaterally. Abdomen: Bowel sounds are positive. Extremities: No rash, lesions, or edema. No restriction of range of motion NEUROLOGICAL EXAMINATION: Awake. Oriented to place and person but not accurate to time.. PERRL. EOMI. CN: no focal findings. Muscle tone: within normal. Muscle strength: 4 DTR: 2- Plantar reflex: Neutral response bilaterally Gait: not examined in bed. Sensory exam: no abnormal findings. No acute cerebellar signs elicited. F-T-N test fine. Objective Objective Vital Signs Date Time Temp Pulse Resp B/P (MAP) Pulse Ox O2 Delivery O2 Flow Rate FiO2 01/12/17 11:00 98.1 68 19 119/56 (77) 92 Room Air 98.1 01/11/17 12:50 2.0 Intake and Output 01/12/17 07:00 Intake Total 1395 ml Output Total 400 ml Balance 995 ml Intake Oral 400 ml IV Total 995 ml Output Urine Total 400 ml # Voids 3 Vitals Signs Vitals VS - Last 72 Hours, by Label Date Time Temp Pulse Resp B/P (MAP) Pulse Ox O2 Delivery O2 Flow Rate FiO2 01/12/17 11:00 98.1 68 19 119/56 (77) 92 Room Air 98.1 01/12/17 09:30 72 163/71 01/12/17 09:30 72 163/71 01/12/17 08:00 Room Air 01/12/17 07:00 98.1 68 19 163/71 (101) 94 Room Air 98.1 01/12/17 03:45 98.1 63 18 115/55 (75) 94 Room Air 98.1 01/11/17 23:25 98.1 67 20 115/63 (80) 94 Room Air 98.1 01/11/17 20:47 73 161/82 01/11/17 20:46 73 161/82 01/11/17 20:45 73 161/82 01/11/17 19:45 98.9 73 19 161/82 (108) 94 Room Air 98.9 01/11/17 19:40 Room Air 01/11/17 18:30 70 174/92 (119) 01/11/17 18:00 70 161/84 (109) 01/11/17 17:00 70 160/80 (106) 01/11/17 16:51 70 01/11/17 16:00 72 128/72 (90) 01/11/17 15:30 80 178/94 (122) 01/11/17 14:45 65 158/74 (102) 01/11/17 14:38 97.5 68 17 156/81 (106) 93 Room Air 97.5 01/11/17 14:30 70 164/95 (118) 01/11/17 14:15 69 149/87 (107) 01/11/17 14:00 70 159/81 (107) 01/11/17 13:45 70 132/76 (94) 01/11/17 13:30 69 114/66 (82) 01/11/17 13:15 68 145/75 (98) 01/11/17 13:02 68 178/81 (113) 01/11/17 13:00 66 199/96 (130) 01/11/17 12:50 66 20 96 Room Air 2.0 01/11/17 12:45 68 182/96 01/11/17 12:15 18 97 Nasal Cannula 2.0 01/11/17 10:50 97.4 60 16 133/72 (92) 97 Room Air 97.4 01/11/17 08:18 155/75 01/11/17 08:16 155/75 01/11/17 08:10 Room Air 01/11/17 08:10 Room Air 01/11/17 07:00 97.5 69 17 155/75 (101) 96 Room Air 97.5 Laboratory Laboratory Laboratory Tests Test 01/11/17 16:24 01/11/17 20:44 01/12/17 02:15 01/12/17 08:01 Glucose (Fingerstick) 151 mg/dL (70-99) 185 mg/dL (70-99) 78 mg/dL (70-99) Sodium Level 140 mmol/L (136-145) Potassium Level 3.6 mmol/L (3.5-5.1) Chloride Level 103 mmol/L (98-107) Carbon Dioxide Level 34 mmol/L (21-32) Anion Gap 3 (6-14) Blood Urea Nitrogen 36 mg/dL (8-26) Creatinine 1.9 mg/dL (0.7-1.3) Estimated GFR (Cockcroft-Gault) 41.7 Glucose Level 110 mg/dL (70-99) Calcium Level 8.5 mg/dL (8.5-10.1) Test 01/12/17 11:00 Glucose (Fingerstick) 158 mg/dL (70-99) Medication Medications Current Medications Levothyroxine Sodium (Synthroid) 50 mcg DAILY07 PO ; Start 01/13/17 at 07:00 Propranolol HCl (Inderal La) 60 mg DAILY PO ; Start 01/12/17 at 12:30 Comment Review of Relevant I have reviewed the following items jay (where applicable) has been applied. ROBIN MACIAS MD Jan 12, 2017 14:51
[2017-01-12 15:00] VITALS: BP 151/81
[2017-01-12] MEDS: PROPRANOLOL ER 60 MG CAP.SA.24H. PO SCH (16:58)
[2017-01-12] MEDS: CALCITRIOL 0.25 MCG CAPSULE. PO SCH (16:59)
[2017-01-12 19:10] VITALS: BP 161/82
[2017-01-12] MEDS: amLODIPine BESYLATE 10 MG TABLET PO SCH (21:14)
[2017-01-12] MEDS: ATORVASTATIN CALCIUM 40 MG TABLET. PO SCH (21:15)
[2017-01-12] MEDS: TERAZOSIN 5 MG CAPSULE. PO SCH (21:15)
[2017-01-12 23:05] VITALS: BP 111/58
[2017-01-13 03:30] VITALS: BP 156/78
[2017-01-13 05:27] LABS: BASO % 0 % (0-3); EOS % 5 % (0-3); HEMATOCRIT 33.7 % (39.0-53.0); HEMOGLOBIN 10.9 g/dL (13.0-17.5); LYMPH # 1.3 x10^3/uL (1.0-4.8); LYMPH % 40 % (24-48); MEAN CORPUSCULAR HEMOGLOBIN 31 pg (25-35); MEAN CORPUSCULAR HGB CONC 32 g/dL (31-37); MEAN CORPUSCULAR VOLUME 97 fL (79-100); MONO % 16 % (0-9); NEUT % 38 % (31-73); PLATELET COUNT 98 x10^3/uL (140-400); RED BLOOD COUNT 3.47 x10^6/uL (4.30-5.70); RED CELL DISTRIBUTION WIDTH 18.8 % (11.5-14.5); WHITE BLOOD COUNT 3.1 x10^3/uL (4.0-11.0)
[2017-01-13 06:06] LABS: INR 1.2 (0.8-1.1)
[2017-01-13 06:11] LABS: CALCIUM 9.1 mg/dL (8.5-10.1); CREATININE 1.9 mg/dL (0.7-1.3); GFR 41.7; POTASSIUM 3.9 mmol/L (3.5-5.1)
[2017-01-13 07:00] VITALS: BP 155/77
[2017-01-13] MEDS: LEVOTHYROXINE 50 MCG TABLET PO SCH (07:56)
[2017-01-13] MEDS: ASPIRIN ENTERIC COATED 81 MG TABLET.DR. PO SCH (07:56)
[2017-01-13] MEDS: CARVEDILOL 12.5 MG TABLET. PO SCH ×2 (07:57→17:14)
[2017-01-13] MEDS: glipiZIDE ER 2.5 MG TAB.ER.24 PO SCH (07:57)
[2017-01-13] MEDS: INSULIN ASPART 300 UNITS/3 ML INSULN.PEN SQ SCH ×3 (08:00→17:00)
[2017-01-13] MEDS: carBAMazepine 200 MG TABLET PO SCH ×2 (10:09→20:43)
[2017-01-13] MEDS: FUROSEMIDE 40 MG TABLET. PO SCH (10:09)
[2017-01-13] MEDS: ALLOPURINOL 100 MG TABLET. PO SCH (10:09)
[2017-01-13] MEDS: cloNIDine HCL 0.2 MG TABLET PO SCH ×2 (10:11→20:44)
[2017-01-13] MEDS: PROPRANOLOL ER 60 MG CAP.SA.24H. PO SCH (10:11)
[2017-01-13] MEDS: DIVALPROEX DELAYED RELEASE 500 MG TABLET.DR. PO SCH ×2 (10:11→20:44)
--- NOTE | 2017-01-13 10:45 | PDOC ---
SUBJECTIVE Subjective Pt awaiting neurosurgery consult. says that he is unchanged and she is not planning on taking him home in the condition that he is in; although in discussion yesterday was not willing to take him to SNF and was wanting to take him home. Will await neurosurgery eval and recommendations. OBJECTIVE Vital Signs Vital Signs Date Time Temp Pulse Resp B/P (MAP) Pulse Ox O2 Delivery O2 Flow Rate FiO2 01/13/17 10:11 68 150/73 01/13/17 10:11 67 150/73 01/13/17 08:00 Room Air 01/13/17 07:57 79 01/13/17 07:00 70 18 155/77 (103) 93 Room Air 01/13/17 07:00 98.0 98.0 01/13/17 03:30 97.8 61 18 156/78 (104) 94 Room Air 97.8 01/12/17 23:05 98.2 60 18 111/58 (75) 94 Room Air 98.2 01/12/17 21:15 63 161/82 01/12/17 21:14 63 161/82 01/12/17 21:14 63 161/82 01/12/17 20:00 Room Air 01/12/17 19:10 97.8 63 18 161/82 (108) 99 Room Air 97.8 01/12/17 16:59 72 170/87 01/12/17 16:58 72 170/87 01/12/17 15:00 98.1 72 19 151/81 (104) 94 Room Air 98.1 01/12/17 11:00 98.1 68 19 119/56 (77) 92 Room Air 98.1 I & O Intake and Output 01/13/17 07:00 Intake Total 2150 ml Output Total 1425 ml Balance 725 ml Intake Oral 2150 ml Output Urine Total 1425 ml PHYSICAL EXAM Physical Exam GEN: NAD, AOx3, sometimes has hard time finding words or following thoughts HEENT: MMM, EOMI, no scleral icterus/injection Cardiac: RRR, no M/R/G, distant heart tones Lungs: CTAB, regular breathing rate and effort Abd: soft, non distended, NTTP Ext: no erythema LE bilaterally, 1+ pitting edema LE bilaterally Nuero: essential tremor ASSESSMENT/PLAN Assessment/Plan Pt is a 76yo AAM admitted for weakness and tremor 1)Weakness- cardiac cath showed nonobstructive CAD. Likely chronic and progressive. Some spinal stenosis seen which could be contributing as well; getting neurosurgery consult today. 2)Essential tremor- Propranolol ER started this admission. EEG performed this admission 3)Hx of seizures- pt continued on Depakote 500mg BID and Tegretol 400mg BID 4)HTN- moderately controlled. Pt currently receiving Carvedilol 12.5mg BID, Lasix 40mg, Clonidine 0.2mg BID, Norvasc 10mg 5)DM2- HbA1C pending, appears to be well controlled. Glipizide decreased to 5mg , SSI available. 6)HLD- pt continued on Atorvastatin 7)Paroxysmal afib 8)History of DVT in the left leg- restart Coumadin per Cardiology 9)Chronic kidney disease stage 3 to 4 with baseline creatinine of 2.3, Cr currently 1.9 10)Hypothyroidism- new diagnosis. Start Levothyroxine 11)Leukopenia- chronic. 12)Anemia- chronic, stable 13)Thrombocytopenia- mild, no active bleeding Problems: COMMENT Lab Laboratory Tests Test 01/12/17 11:00 01/12/17 16:49 01/12/17 20:47 01/13/17 03:00 Glucose (Fingerstick) 158 mg/dL (70-99) 109 mg/dL (70-99) 126 mg/dL (70-99) White Blood Count 3.1 x10^3/uL (4.0-11.0) Red Blood Count 3.47 x10^6/uL (4.30-5.70) Hemoglobin 10.9 g/dL (13.0-17.5) Hematocrit 33.7 % (39.0-53.0) Mean Corpuscular Volume 97 fL (79-100) Mean Corpuscular Hemoglobin 31 pg (25-35) Mean Corpuscular Hemoglobin Concent 32 g/dL (31-37) Red Cell Distribution Width 18.8 % (11.5-14.5) Platelet Count 98 x10^3/uL (140-400) Neutrophils (%) (Auto) 38 % (31-73) Lymphocytes (%) (Auto) 40 % (24-48) Monocytes (%) (Auto) 16 % (0-9) Eosinophils (%) (Auto) 5 % (0-3) Basophils (%) (Auto) 0 % (0-3) Neutrophils # (Auto) 1.2 x10^3uL (1.8-7.7) Lymphocytes # (Auto) 1.3 x10^3/uL (1.0-4.8) Monocytes # (Auto) 0.5 x10^3/uL (0.0-1.1) Eosinophils # (Auto) 0.2 x10^3/uL (0.0-0.7) Basophils # (Auto) 0.0 x10^3/uL (0.0-0.2) Prothrombin Time 14.0 SEC (11.7-14.0) Prothromb Time International Ratio 1.2 (0.8-1.1) Sodium Level 143 mmol/L (136-145) Potassium Level 3.9 mmol/L (3.5-5.1) Chloride Level 106 mmol/L (98-107) Carbon Dioxide Level 33 mmol/L (21-32) Anion Gap 4 (6-14) Blood Urea Nitrogen 33 mg/dL (8-26) Creatinine 1.9 mg/dL (0.7-1.3) Estimated GFR (Cockcroft-Gault) 41.7 Glucose Level 54 mg/dL (70-99) Calcium Level 9.1 mg/dL (8.5-10.1) Test 01/13/17 08:02 Glucose (Fingerstick) 63 mg/dL (70-99) JOSESITO AMADO MD Jan 13, 2017 10:45
[2017-01-13 11:00] VITALS: BP 131/67
--- NOTE | 2017-01-13 13:24 | PDOC2 ---
CONSULT Date of Consult Date of Consult DATE: 01/13/17 TIME: 13:03 Reason for Consult Reason for Consult: cervical stenosis History of Present Illness Reason for Visit: 76M with increased gait unsteadiness, right hand weakness, BUE tremors present to some degree for several months but worse last one month. Denies clear inciting event but reports worsening after suffering gout. Reports BUE tremor with movement and fine motor tasks. Drops objects with right hand. Reports increased falls. Denies radicular type pain or any paresthesias. Denies bowel/ bladder changes. Unable to receive MRI due to pacemaker. Noncontrast CT with some osseous cervical stenosis for which NS is consulted. Denies having specific treatments. Past Medical History Cardiovascular: CAD, CHF, HTN, Hyperlipidemia, Other (SSS; PAflultter; PFO) CENTRAL NERVOUS SYSTEM: CVA, Seizure Heme/Onc: Other (dvt) Musculoskeletal: Osteoarthritis Rheumatologic: No pertinent hx Infectious disease: No pertinent hx Renal/: Chronic renal insuff (CKD3), Benign prostatic enlarg. Endocrine: Diabetes (2) Past Surgical History Past Surgical History: Pacemaker, Other (PCI/BMS to LCx; IVC filter, back surgery and jaw surgery; bilateral LE venous RF ablation) Family History Family History: Heart Disease Social History No ALCOHOL: none Drugs: None Lives: with Family Current Problem List Problem List Problems Medical Problems: (1) Chronic renal insufficiency Status: Acute (2) Elevated troponin Status: Acute (3) Weakness generalized Status: Acute Current Medications Current Medications Current Medications Clonidine HCl (Catapres) 0.2 mg 1X ONCE PO Last administered on 01/09/17 17: 54; Start 01/09/17 at 17:15; Stop 01/09/17 at 17:16; Status DC Sodium Chloride 500 ml @ 500 mls/hr 1X ONCE IV Last administered on 17:53; Start 01/09/17 at 17:15; Stop 01/09/17 at 18:14; Status DC Aspirin (Children'S Aspirin) 324 mg 1X ONCE PO Last administered on 19:10; Start 01/09/17 at 19:15; Stop 01/09/17 at 19:16; Status DC Ondansetron HCl (Zofran) 4 mg PRN Q8HRS PRN IV NAUSEA/VOMITING; Start at 19:15; Stop 01/10/17 at 19:14; Status DC Morphine Sulfate 2 mg PRN Q2HR PRN IV PAIN; Start 01/09/17 at 19:15; Stop at 19:14; Status DC Amlodipine Besylate (Norvasc) 10 mg HS PO ; Start 01/09/17 at 21:00; Status UNV Amlodipine Besylate (Norvasc) 10 mg HS PO Last administered on 01/12/17 21:14 ; Start 01/09/17 at 21:00 Aspirin (Ecotrin) 81 mg DAILY08 PO Last administered on 01/13/17 07:56; Start 01/10/17 at 08:00 Atorvastatin Calcium (Lipitor) 40 mg HS PO Last administered on 01/12/17 21: 15; Start 01/09/17 at 21:00 Calcitriol (Rocaltrol) 0.25 mcg DAILY16 PO Last administered on 01/12/17 16: 59; Start 01/10/17 at 16:00 Carbamazepine (TEGretol) 400 mg BID PO Last administered on 01/13/17 10:09; Start 01/09/17 at 21:00 Clonidine HCl (Catapres) 0.2 mg BID PO Last administered on 01/13/17 10:11; Start 01/09/17 at 21:00 Divalproex Sodium (Depakote) 500 mg BID PO Last administered on 01/13/17 10: 11; Start 01/09/17 at 21:00 Furosemide (Lasix) 40 mg DAILY PO Last administered on 01/13/17 10:09; Start 01/10/17 at 09:00 Acetaminophen/ Hydrocodone Bitart (Lortab 5/325) 1 tab Q6HRS PO ; Start at 00:00; Stop 01/10/17 at 00:00; Status DC Terazosin HCl (Hytrin) 5 mg HS PO Last administered on 01/12/17 21:15; Start 01/09/17 at 21:00 Warfarin Sodium (Coumadin) 5 mg DAILY16 PO ; Start 01/10/17 at 16:00; Stop at 16:00; Status DC Glipizide (Glucotrol Er) 10 mg DAILY08 PO Last administered on 01/13/17 07:57 ; Start 01/10/17 at 08:00; Stop 01/13/17 at 10:43; Status DC Insulin Aspart (NovoLOG) 0-5 UNITS TIDWMEALS SQ Last administered on 18:34; Start 01/10/17 at 08:00 Dextrose (Dextrose 50%-Water Syringe) 12.5 gm PRN Q15MIN PRN IV SEE COMMENTS Last administered on 01/11/17 08:10; Start 01/09/17 at 21:00 Warfarin Sodium (Coumadin Per Physician) 1 each PRN DAILY PRN MC SEE COMMENTS; Start 01/09/17 at 21:15; Stop 01/10/17 at 09:53; Status DC Acetaminophen/ Hydrocodone Bitart (Lortab 5/325) 1 tab PRN Q6HRS PRN PO pain Last administered on 01/10/17 10:22; Start 01/10/17 at 00:00 Allopurinol (Zyloprim) 100 mg DAILY PO Last administered on 01/13/17 10:09; Start 01/10/17 at 09:00 Heparin Sodium/ Dextrose 500 ml @ 19.1 mls/hr CONT PRN IV SEE I/O RECORD Last administered on 01/10/17 12:44; Start 01/10/17 at 10:00; Stop 01/11/17 at 12 :47; Status DC Heparin Sodium (Porcine) (Heparin Sodium) 2,000 unit PRN Q6HRS PRN IV FOR UFH LEVEL LESS THAN 0.2 Last administered on 01/10/17 20:25; Start 01/10/17 at 10 :00; Stop 01/11/17 at 12:48; Status DC Sodium Chloride 1,000 ml @ 75 mls/hr [id number] IV Last administered on 16:50; Start 01/10/17 at 12:00; Stop 01/11/17 at 19:12; Status DC Sodium Polystyrene Sulfonate (Kayexalate) 30 gm 1X ONCE PO Last administered on 01/10/17 12:36; Start 01/10/17 at 11:30; Stop 01/10/17 at 11:31; Status DC Carvedilol (Coreg) 12.5 mg BIDWMEALS PO Last administered on 11/19/17at 07:57; Start 01/10/17 at 17:00 Heparin Sodium/ Sodium Chloride 500 ml @ As Directed STK-MED ONCE .ROUTE ; Start 01/11/17 at 11:37; Stop 01/11/17 at 11:38; Status DC Lidocaine HCl 20 ml STK-MED ONCE .ROUTE ; Start 01/11/17 at 11:37; Stop at 11:38; Status DC Iodixanol (Visipaque 320) 100 ml STK-MED ONCE .ROUTE ; Start 01/11/17 at 11:38 ; Stop 01/11/17 at 11:39; Status DC Fentanyl Citrate (Fentanyl 2ml Vial) 100 mcg STK-MED ONCE .ROUTE ; Start at 12:14; Stop 01/11/17 at 12:15; Status DC Midazolam HCl (Versed) 2 mg STK-MED ONCE .ROUTE ; Start 01/11/17 at 12:14; Stop 01/11/17 at 12:15; Status DC Heparin Sodium (Porcine) (Heparin Sodium) 10,000 unit STK-MED ONCE .ROUTE ; Start 01/11/17 at 12:14; Stop 01/11/17 at 12:15; Status DC Verapamil HCl (Verapamil) 5 mg STK-MED ONCE .ROUTE ; Start 01/11/17 at 12:14; Stop 01/11/17 at 12:15; Status DC Iohexol (Omnipaque 300 Mg/ml) 100 ml STK-MED ONCE .ROUTE ; Start 01/11/17 at 12 :14; Stop 01/11/17 at 12:15; Status DC Nitroglycerin (Nitroglycerin) 200 mcg STK-MED ONCE .ROUTE ; Start 01/11/17 at 12:14; Stop 01/11/17 at 12:15; Status DC Nitroglycerin (Nitroglycerin) 200 mcg 1X ONCE IART Last administered on t 12:45; Start 01/11/17 at 12:15; Stop 01/11/17 at 12:41; Status DC Verapamil HCl (Verapamil) 2.5 mg 1X ONCE IART Last administered on 01/11/17t 12:45; Start 01/11/17 at 12:15; Stop 01/11/17 at 12:41; Status DC Heparin Sodium (Porcine) (Heparin Sodium) 2,500 unit 1X ONCE IART Last administered on 01/11/17 12:48; Start 01/11/17 at 12:15; Stop 01/11/17 at 12 :41; Status DC Heparin Sodium/ Sodium Chloride 1,000 unit 1X ONCE IART Last administered on 01/11/17 12:44; Start 01/11/17 at 12:15; Stop 01/11/17 at 12:41; Status DC Midazolam HCl (Versed) 2 mg 1X ONCE IV ; Start 01/11/17 at 12:15; Stop at 12:41; Status DC Fentanyl Citrate (Fentanyl 2ml Vial) 100 mcg 1X ONCE IV ; Start 01/11/17 at 12 :15; Stop 01/11/17 at 12:41; Status DC Lidocaine HCl 20 ml 1X ONCE IJ Last administered on 01/11/17 12:46; Start 01/11/17 at 12:15; Stop 01/11/17 at 12:41; Status DC Iohexol (Omnipaque 300 Mg/ml) 100 ml 1X ONCE IART Last administered on 12:52; Start 01/11/17 at 13:00; Stop 01/11/17 at 13:01; Status DC Info (Do NOT chart on this entry -- for MONITORING) 1 each PRN DAILY PRN MC SEE COMMENTS; Start 01/11/17 at 13:00; Stop 01/13/17 at 12:59; Status DC Propranolol HCl (Inderal La) 60 mg DAILY PO Last administered on 01/13/17 10: 11; Start 01/12/17 at 12:30 Levothyroxine Sodium (Synthroid) 50 mcg DAILY07 PO Last administered on 07:56; Start 01/13/17 at 07:00 Glipizide (Glucotrol Er) 5 mg DAILY08 PO ; Start 01/14/17 at 08:00 Active Scripts Active Lortab 5-325 mg Tablet (Hydrocodone/Acetaminophen) 1 Each Tablet 1 Tab PO Q6HRS 7 Days Cipro (Ciprofloxacin Hcl) 500 Mg Tablet 500 Mg .ROUTE BID 5 Days Reported Norvasc (Amlodipine Besylate) 10 Mg Tablet 10 Mg PO HS Coumadin (Warfarin Sodium) 5 Mg Tablet 1 Tab PO DAILY Albuterol Sulfate Neb Soln (Albuterol Sulfate) 0.63 Mg/3 Ml Vial.neb 0.63 Mg NEB PRN Q6HRS Terazosin Hcl 5 Mg Capsule 5 Mg PO HS Glipizide Er (Glipizide) 10 Mg Tab.er.24 10 Mg PO DAILY Divalproex Sodium 500 Mg Tablet.dr 500 Mg PO BID Clonidine Hcl 0.2 Mg Tablet 0.2 Mg PO BID Carbamazepine 200 Mg Tablet 400 Mg PO BID Calcitriol 0.25 Mcg Capsule 0.25 Mcg PO DAILY16 Atorvastatin Calcium 40 Mg Tablet 40 Mg PO HS Aspir 81 (Aspirin) 81 Mg Tablet.dr 81 Mg PO DAILY Amlodipine Besylate 5 Mg Tablet 10 Mg PO HS Furosemide 20 Mg Tablet 40 Mg PO DAILY Allergies Allergies: Coded Allergies: No Known Allergies (Verified Allergy, Intermediate, 01/13/17) Uncoded Allergies: PACEMAKER NO MRI (Allergy, Unknown, 01/11/17) Physical Exam General: Alert, Cooperative, No acute distress HEENT: Atraumatic, PERRLA, EOMI Lungs: Other (respirations nonlabored) Heart: Regular rate Abdomen: Soft Extremities: Other (pitting edema BLE) Skin: Other (BLE dry) Neuro: Normal speech, Strength at 5/5 X4 ext (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), Sensation intact, Cranial nerves 3-12 NL, Other (DTR brisk BUE ) MUSCULOSKELETAL: No joint tenderness, No muscular tenderness noted, Osteoarthritic changes both hands Vitals VITALS Vital Signs Date Time Temp Pulse Resp B/P (MAP) Pulse Ox O2 Delivery O2 Flow Rate FiO2 01/13/17 11:00 98.0 61 19 131/67 (88) 96 Room Air 98.0 Labs Labs Laboratory Tests Test 01/11/17 16:24 01/11/17 20:44 01/12/17 02:15 01/12/17 08:01 Glucose (Fingerstick) 151 mg/dL (70-99) 185 mg/dL (70-99) 78 mg/dL (70-99) Sodium Level 140 mmol/L (136-145) Potassium Level 3.6 mmol/L (3.5-5.1) Chloride Level 103 mmol/L (98-107) Carbon Dioxide Level 34 mmol/L (21-32) Anion Gap 3 (6-14) Blood Urea Nitrogen 36 mg/dL (8-26) Creatinine 1.9 mg/dL (0.7-1.3) Estimated GFR (Cockcroft-Gault) 41.7 Glucose Level 110 mg/dL (70-99) Hemoglobin A1c 6.8 % (4.8-5.6) Calcium Level 8.5 mg/dL (8.5-10.1) Test 01/12/17 11:00 01/12/17 16:49 01/12/17 20:47 01/13/17 03:00 Glucose (Fingerstick) 158 mg/dL (70-99) 109 mg/dL (70-99) 126 mg/dL (70-99) White Blood Count 3.1 x10^3/uL (4.0-11.0) Red Blood Count 3.47 x10^6/uL (4.30-5.70) Hemoglobin 10.9 g/dL (13.0-17.5) Hematocrit 33.7 % (39.0-53.0) Mean Corpuscular Volume 97 fL (79-100) Mean Corpuscular Hemoglobin 31 pg (25-35) Mean Corpuscular Hemoglobin Concent 32 g/dL (31-37) Red Cell Distribution Width 18.8 % (11.5-14.5) Platelet Count 98 x10^3/uL (140-400) Neutrophils (%) (Auto) 38 % (31-73) Lymphocytes (%) (Auto) 40 % (24-48) Monocytes (%) (Auto) 16 % (0-9) Eosinophils (%) (Auto) 5 % (0-3) Basophils (%) (Auto) 0 % (0-3) Neutrophils # (Auto) 1.2 x10^3uL (1.8-7.7) Lymphocytes # (Auto) 1.3 x10^3/uL (1.0-4.8) Monocytes # (Auto) 0.5 x10^3/uL (0.0-1.1) Eosinophils # (Auto) 0.2 x10^3/uL (0.0-0.7) Basophils # (Auto) 0.0 x10^3/uL (0.0-0.2) Prothrombin Time 14.0 SEC (11.7-14.0) Prothromb Time International Ratio 1.2 (0.8-1.1) Sodium Level 143 mmol/L (136-145) Potassium Level 3.9 mmol/L (3.5-5.1) Chloride Level 106 mmol/L (98-107) Carbon Dioxide Level 33 mmol/L (21-32) Anion Gap 4 (6-14) Blood Urea Nitrogen 33 mg/dL (8-26) Creatinine 1.9 mg/dL (0.7-1.3) Estimated GFR (Cockcroft-Gault) 41.7 Glucose Level 54 mg/dL (70-99) Calcium Level 9.1 mg/dL (8.5-10.1) Test 01/13/17 08:02 01/13/17 11:49 Glucose (Fingerstick) 63 mg/dL (70-99) 176 mg/dL (70-99) Laboratory Tests Test 01/12/17 16:49 01/12/17 20:47 01/13/17 03:00 01/13/17 08:02 Glucose (Fingerstick) 109 mg/dL (70-99) 126 mg/dL (70-99) 63 mg/dL (70-99) White Blood Count 3.1 x10^3/uL (4.0-11.0) Red Blood Count 3.47 x10^6/uL (4.30-5.70) Hemoglobin 10.9 g/dL (13.0-17.5) Hematocrit 33.7 % (39.0-53.0) Mean Corpuscular Volume 97 fL (79-100) Mean Corpuscular Hemoglobin 31 pg (25-35) Mean Corpuscular Hemoglobin Concent 32 g/dL (31-37) Red Cell Distribution Width 18.8 % (11.5-14.5) Platelet Count 98 x10^3/uL (140-400) Neutrophils (%) (Auto) 38 % (31-73) Lymphocytes (%) (Auto) 40 % (24-48) Monocytes (%) (Auto) 16 % (0-9) Eosinophils (%) (Auto) 5 % (0-3) Basophils (%) (Auto) 0 % (0-3) Neutrophils # (Auto) 1.2 x10^3uL (1.8-7.7) Lymphocytes # (Auto) 1.3 x10^3/uL (1.0-4.8) Monocytes # (Auto) 0.5 x10^3/uL (0.0-1.1) Eosinophils # (Auto) 0.2 x10^3/uL (0.0-0.7) Basophils # (Auto) 0.0 x10^3/uL (0.0-0.2) Prothrombin Time 14.0 SEC (11.7-14.0) Prothromb Time International Ratio 1.2 (0.8-1.1) Sodium Level 143 mmol/L (136-145) Potassium Level 3.9 mmol/L (3.5-5.1) Chloride Level 106 mmol/L (98-107) Carbon Dioxide Level 33 mmol/L (21-32) Anion Gap 4 (6-14) Blood Urea Nitrogen 33 mg/dL (8-26) Creatinine 1.9 mg/dL (0.7-1.3) Estimated GFR (Cockcroft-Gault) 41.7 Glucose Level 54 mg/dL (70-99) Calcium Level 9.1 mg/dL (8.5-10.1) Test 01/13/17 11:49 Glucose (Fingerstick) 176 mg/dL (70-99) Images Images noncontrast CT cervical spine with diffuse degenerative changes and osseous stenosis most prominent C3-4 but also present C2-3. Soft tissues and neural elements are not well visualized on this noncontrast study. Assessment/Plan Assessment/Plan 76M with cervical stenosis, right hand weakness, gait disturbance, intention tremor -if able to do so, a CT cervical myelogram would better assess present cervical findings as soft tissues and neural elements are not well visualized -have concern regarding surgical candidacy due to significant multiple comorbidities -potential surgical decompression of present visualized stenosis could potentially benefit gait issues and right hand issues but less likely tremor WASHINGTON PRATER MD Jan 13, 2017 13:24
[2017-01-13 15:00] VITALS: BP 136/78
--- NOTE | 2017-01-13 15:09 | PDOC ---
PROGRESS NOTES Assessment Assessment Chronic tremor or jerking like movements x 3 months per his .. Gait instability x 3 years, worse recently x 3 months. PD not likely. HTN HLD CAD Seizure. DM CKD Renal failure. Hypothyroidism. Dementia features. Pacemaker in site. Moderate severe C-spine stenosis. Degenerative spine disease. Cognitive impairment. RECOMMENDATIONS/PLAN: Treat medical diseases. Continue Depakote 500 mg bid. Treat hypothyroidism. Consulted neurosurgery as he and his eventually wanted NS consultation. OT/PT, continue as outpatient. Discussed with his in all detail again at bedside on 01/12/17. EEG on 01/11/17: The posterior dominant rhythm of 6-7 Hz/s that is slow for age. No seizure activity noted. HISTORY OF THE PRESENT ILLNESS: 76-y-old male patient with above medical diseases has been having symptoms of abnormal tremor like or jerking movements in hands. He also has gait instability for about 3 years but became worse in the recent months. Patient was unable to provide detailed information. Patient stated on 01/11 that he did not surgical consultation or intervention for his C-spine stenosis, but next day on 01/12, he and his changed mind and wanted NS consult. PAST MEDICAL HISTORY Cardiovascular: CAD, CHF, HTN, Hyperlipidemia, Other (SSS; PAflultter; PFO) CENTRAL NERVOUS SYSTEM: CVA, Seizure Heme/Onc: Other (dvt) Musculoskeletal: Osteoarthritis Rheumatologic: No pertinent hx Infectious disease: No pertinent hx Renal/: Chronic renal insuff (CKD3), Benign prostatic enlarg. Endocrine: Diabetes (2) PAST SURGICAL HISTORY Pacemaker, Other (PCI/BMS to LCx; IVC filter, back surgery and jaw surgery; bilateral LE venous RF ablation) FAMILY HISTORY Heart Disease SOCIAL HISTORY Smoke: No ALCOHOL: none Drugs: None Lives: with Family ALLERGY: Reviewed. MEDICATIONS: Refer to [facility] REVIEW OF SYSTEMS: Constitutional: Mild malnutrition. Head: No traumatic brain or head injury. Skin: No edema, or rash. Ear: No infection Eyes: No vision loss or color blindness. Nose: No bleeding or purulent discharges. Hearing: Hearing decrease. Neck: No injury. Cardiac: HTN, HLD. Pulmonary: No pneumonia,. GI: No GI ulcer, GI bleeding. Urinary/genital: UTI. Endocrinologic: Diabetes Mellitus. Skeletomuscular: Generalized weakness. Neurological: see HP. Psychiatric: Denies drug use/abuse. Otherwise, not -qsifa review of systems. PHYSICAL EXAMINATION: General appearance is in subacute distress. HEENT: Normocephalic and nontraumatic. Eyes, nose, ears, and throat are unremarkable. Neck is supple. No lymphadenopathy. No crepitus. Cardiovascular: S1, S2, regular rate and rhythm. Pulmonary: Clear to auscultation bilaterally. Abdomen: Bowel sounds are positive. Extremities: No rash, lesions, or edema. No restriction of range of motion NEUROLOGICAL EXAMINATION: Awake. Oriented to place and person but not accurate to time.. PERRL. EOMI. CN: no focal findings. Muscle tone: within normal. Muscle strength: 4 right UE and LE, 5 left UE. DTR: 2- Plantar reflex: Neutral response bilaterally Gait: not examined in bed. Sensory exam: no abnormal findings. No acute cerebellar signs elicited. F-T-N test fine. Objective Objective Vital Signs Date Time Temp Pulse Resp B/P (MAP) Pulse Ox O2 Delivery O2 Flow Rate FiO2 01/13/17 11:00 98.0 61 19 131/67 (88) 96 Room Air 98.0 Intake and Output 01/13/17 07:00 Intake Total 2150 ml Output Total 1425 ml Balance 725 ml Intake Oral 2150 ml Output Urine Total 1425 ml Vitals Signs Vitals VS - Last 72 Hours, by Label Date Time Temp Pulse Resp B/P (MAP) Pulse Ox O2 Delivery O2 Flow Rate FiO2 01/13/17 11:00 98.0 61 19 131/67 (88) 96 Room Air 98.0 01/13/17 10:11 68 150/73 01/13/17 10:11 67 150/73 01/13/17 08:00 Room Air 01/13/17 07:57 79 01/13/17 07:00 70 18 155/77 (103) 93 Room Air 01/13/17 07:00 98.0 98.0 01/13/17 03:30 97.8 61 18 156/78 (104) 94 Room Air 97.8 01/12/17 23:05 98.2 60 18 111/58 (75) 94 Room Air 98.2 01/12/17 21:15 63 161/82 01/12/17 21:14 63 161/82 01/12/17 21:14 63 161/82 01/12/17 20:00 Room Air 01/12/17 19:10 97.8 63 18 161/82 (108) 99 Room Air 97.8 01/12/17 16:59 72 170/87 01/12/17 16:58 72 170/87 01/12/17 15:00 98.1 72 19 151/81 (104) 94 Room Air 98.1 01/12/17 11:00 98.1 68 19 119/56 (77) 92 Room Air 98.1 01/12/17 09:30 72 163/71 01/12/17 09:30 72 163/71 01/12/17 08:00 Room Air 01/12/17 07:00 98.1 68 19 163/71 (101) 94 Room Air 98.1 Laboratory Laboratory Laboratory Tests Test 01/12/17 16:49 01/12/17 20:47 01/13/17 03:00 01/13/17 08:02 Glucose (Fingerstick) 109 mg/dL (70-99) 126 mg/dL (70-99) 63 mg/dL (70-99) White Blood Count 3.1 x10^3/uL (4.0-11.0) Red Blood Count 3.47 x10^6/uL (4.30-5.70) Hemoglobin 10.9 g/dL (13.0-17.5) Hematocrit 33.7 % (39.0-53.0) Mean Corpuscular Volume 97 fL (79-100) Mean Corpuscular Hemoglobin 31 pg (25-35) Mean Corpuscular Hemoglobin Concent 32 g/dL (31-37) Red Cell Distribution Width 18.8 % (11.5-14.5) Platelet Count 98 x10^3/uL (140-400) Neutrophils (%) (Auto) 38 % (31-73) Lymphocytes (%) (Auto) 40 % (24-48) Monocytes (%) (Auto) 16 % (0-9) Eosinophils (%) (Auto) 5 % (0-3) Basophils (%) (Auto) 0 % (0-3) Neutrophils # (Auto) 1.2 x10^3uL (1.8-7.7) Lymphocytes # (Auto) 1.3 x10^3/uL (1.0-4.8) Monocytes # (Auto) 0.5 x10^3/uL (0.0-1.1) Eosinophils # (Auto) 0.2 x10^3/uL (0.0-0.7) Basophils # (Auto) 0.0 x10^3/uL (0.0-0.2) Prothrombin Time 14.0 SEC (11.7-14.0) Prothromb Time International Ratio 1.2 (0.8-1.1) Sodium Level 143 mmol/L (136-145) Potassium Level 3.9 mmol/L (3.5-5.1) Chloride Level 106 mmol/L (98-107) Carbon Dioxide Level 33 mmol/L (21-32) Anion Gap 4 (6-14) Blood Urea Nitrogen 33 mg/dL (8-26) Creatinine 1.9 mg/dL (0.7-1.3) Estimated GFR (Cockcroft-Gault) 41.7 Glucose Level 54 mg/dL (70-99) Calcium Level 9.1 mg/dL (8.5-10.1) Test 01/13/17 11:49 Glucose (Fingerstick) 176 mg/dL (70-99) Medication Medications Current Medications Glipizide (Glucotrol Er) 5 mg DAILY08 PO ; Start 01/14/17 at 08:00 Levothyroxine Sodium (Synthroid) 50 mcg DAILY07 PO Last administered on t 07:56; Start 01/13/17 at 07:00 Comment Review of Relevant I have reviewed the following items jay (where applicable) has been applied. ROBIN MACIAS MD Jan 13, 2017 15:09
--- NOTE | 2017-01-13 16:04 | PDOC ---
SUBJECTIVE ROS CKD III doing and feeling much better today CVS: no Orthopnea, no CP RESP: no SOB, no HERNANDEZ GI: no Nausea, no Vomiting : no Dysuria, no Urgency OBJECTIVE Vital Signs Vital Signs Date Time Temp Pulse Resp B/P (MAP) Pulse Ox O2 Delivery O2 Flow Rate FiO2 01/13/17 11:00 98.0 61 19 131/67 (88) 96 Room Air 98.0 I & 0 Intake and Output 01/13/17 07:00 Intake Total 2150 ml Output Total 1425 ml Balance 725 ml Intake Oral 2150 ml Output Urine Total 1425 ml PHYSICAL EXAM Physical Exam GEN: Awake, Oriented x 3, In no distress EYES: Vision Unchanged, Conjunctiva Normal EN: No EN Drainage, Mucous Membranes moist NECK: no JVD, no JVP, Supple, no Thyromegaly CVS: S1S2, ? soft Murmur, No Gallop, No Rub,no Edema RESP: no Rales, no Rhonchi,no Acc. Muscle Use GI: BS + ve, NO Bruit, Non Tender, Non Distended : n CVA tenderness, no Suprapubic Tenderness Tremors seem a little better to me today DIAGNOSIS/ASSESSMENT Assessment & Plan CKD STAGE 3 TO 4 WITH STABLE CR OF late - Current fluid and E-lyte status does not necessitate emergent need for dialysis. Will re-evaluate for dialysis in the am CAD WITH CM - EF 20% - appears to be clnically compensated; No worsening of Creat per se after LHC ?NSTEMI - LHC was "clean" Tremors - doubt Uremic - start 24-hr Urine; consider checking tegretol level too HypoThyroid state - defer to Primary team Anemia - suspect part of pancytopenia - asso with anti-SZ meds Discussed Plan of Care with family () at bedside COMMENT/RELEVANT DATA Meds Current Medications Medications (Trade) Dose Ordered Sig/Rian Start Time Stop Time Status Last Admin Dose Admin Acetaminophen/ Hydrocodone Bitart (Lortab 5/325) 1 tab PRN Q6HRS PRN 01/10/17 00:00 01/10/17 10:22 1 TAB Allopurinol (Zyloprim) 100 mg DAILY 01/10/17 09:00 01/13/17 10:09 100 MG Amlodipine Besylate (Norvasc) 10 mg HS 01/09/17 21:00 01/12/17 21:14 10 MG Aspirin (Children'S Aspirin) 324 mg 1X ONCE 01/09/17 19:15 01/09/17 19:16 DC 01/09/17 19:10 324 MG Aspirin (Ecotrin) 81 mg DAILY08 01/10/17 08:00 01/13/17 07:56 81 MG Atorvastatin Calcium (Lipitor) 40 mg HS 01/09/17 21:00 01/12/17 21:15 40 MG Calcitriol (Rocaltrol) 0.25 mcg DAILY16 01/10/17 16:00 01/12/17 16:59 0.25 MCG Carbamazepine (TEGretol) 400 mg BID 01/09/17 21:00 01/13/17 10:09 400 MG Carvedilol (Coreg) 12.5 mg BIDWMEALS 01/10/17 17:00 01/13/17 07:57 12.5 MG Clonidine HCl (Catapres) 0.2 mg BID 01/09/17 21:00 01/13/17 10:11 0.2 MG Dextrose (Dextrose 50%-Water Syringe) 12.5 gm PRN Q15MIN PRN 01/09/17 21:00 01/11/17 08:10 12.5 GM Divalproex Sodium (Depakote) 500 mg BID 01/09/17 21:00 01/13/17 10:11 500 MG Fentanyl Citrate (Fentanyl 2ml Vial) 100 mcg 1X ONCE 01/11/17 12:15 01/11/17 12:41 DC Furosemide (Lasix) 40 mg DAILY 01/10/17 09:00 01/13/17 10:09 40 MG Glipizide (Glucotrol Er) 5 mg DAILY08 01/14/17 08:00 Heparin Sodium (Porcine) (Heparin Sodium) 2,500 unit 1X ONCE 01/11/17 12:15 01/11/17 12:41 DC 01/11/17 12:48 2,500 UNIT Heparin Sodium/ Dextrose 500 ml @ 19.1 mls/hr CONT PRN 01/10/17 10:00 01/11/17 12:47 DC 01/10/17 12:44 19.1 MLS/HR Heparin Sodium/ Sodium Chloride 1,000 unit 1X ONCE 01/11/17 12:15 01/11/17 12:41 DC 01/11/17 12:44 1,000 UNIT Info (Do NOT chart on this entry -- for MONITORING) 1 each PRN DAILY PRN 01/11/17 13:00 01/13/17 12:59 DC Insulin Aspart (NovoLOG) 0-5 UNITS TIDWMEALS 01/10/17 08:00 01/10/17 18:34 2 UNITS Iodixanol (Visipaque 320) 100 ml STK-MED ONCE 01/11/17 11:38 01/11/17 11:39 DC Iohexol (Omnipaque 300 Mg/ml) 100 ml 1X ONCE 01/11/17 13:00 01/11/17 13:01 DC 01/11/17 12:52 101 ML Levothyroxine Sodium (Synthroid) 50 mcg DAILY07 01/13/17 07:00 01/13/17 07:56 50 MCG Lidocaine HCl 20 ml 1X ONCE 01/11/17 12:15 01/11/17 12:41 DC 01/11/17 12:46 1 ML Midazolam HCl (Versed) 2 mg 1X ONCE 01/11/17 12:15 01/11/17 12:41 DC Morphine Sulfate 2 mg PRN Q2HR PRN 01/09/17 19:15 01/10/17 19:14 DC Nitroglycerin (Nitroglycerin) 200 mcg 1X ONCE 01/11/17 12:15 01/11/17 12:41 DC 01/11/17 12:45 200 MCG Ondansetron HCl (Zofran) 4 mg PRN Q8HRS PRN 01/09/17 19:15 01/10/17 19:14 DC Propranolol HCl (Inderal La) 60 mg DAILY 01/12/17 12:30 01/13/17 10:11 60 MG Sodium Polystyrene Sulfonate (Kayexalate) 30 gm 1X ONCE 01/10/17 11:30 01/10/17 11:31 DC 01/10/17 12:36 30 GM Sodium Chloride 1,000 ml @ 75 mls/hr [id number] 01/10/17 12:00 01/11/17 19:12 DC 01/11/17 16:50 75 MLS/HR Terazosin HCl (Hytrin) 5 mg HS 01/09/17 21:00 01/12/17 21:15 5 MG Verapamil HCl (Verapamil) 2.5 mg 1X ONCE 01/11/17 12:15 01/11/17 12:41 DC 01/11/17 12:45 2.5 MG Warfarin Sodium (Coumadin Per Physician) 1 each PRN DAILY PRN 01/09/17 21:15 01/10/17 09:53 DC Warfarin Sodium (Coumadin) 5 mg DAILY16 01/10/17 16:00 01/10/17 16:00 DC Lab Laboratory Tests Test 01/12/17 16:49 01/12/17 20:47 01/13/17 03:00 01/13/17 08:02 Glucose (Fingerstick) 109 mg/dL (70-99) 126 mg/dL (70-99) 63 mg/dL (70-99) White Blood Count 3.1 x10^3/uL (4.0-11.0) Red Blood Count 3.47 x10^6/uL (4.30-5.70) Hemoglobin 10.9 g/dL (13.0-17.5) Hematocrit 33.7 % (39.0-53.0) Mean Corpuscular Volume 97 fL (79-100) Mean Corpuscular Hemoglobin 31 pg (25-35) Mean Corpuscular Hemoglobin Concent 32 g/dL (31-37) Red Cell Distribution Width 18.8 % (11.5-14.5) Platelet Count 98 x10^3/uL (140-400) Neutrophils (%) (Auto) 38 % (31-73) Lymphocytes (%) (Auto) 40 % (24-48) Monocytes (%) (Auto) 16 % (0-9) Eosinophils (%) (Auto) 5 % (0-3) Basophils (%) (Auto) 0 % (0-3) Neutrophils # (Auto) 1.2 x10^3uL (1.8-7.7) Lymphocytes # (Auto) 1.3 x10^3/uL (1.0-4.8) Monocytes # (Auto) 0.5 x10^3/uL (0.0-1.1) Eosinophils # (Auto) 0.2 x10^3/uL (0.0-0.7) Basophils # (Auto) 0.0 x10^3/uL (0.0-0.2) Prothrombin Time 14.0 SEC (11.7-14.0) Prothromb Time International Ratio 1.2 (0.8-1.1) Sodium Level 143 mmol/L (136-145) Potassium Level 3.9 mmol/L (3.5-5.1) Chloride Level 106 mmol/L (98-107) Carbon Dioxide Level 33 mmol/L (21-32) Anion Gap 4 (6-14) Blood Urea Nitrogen 33 mg/dL (8-26) Creatinine 1.9 mg/dL (0.7-1.3) Estimated GFR (Cockcroft-Gault) 41.7 Glucose Level 54 mg/dL (70-99) Calcium Level 9.1 mg/dL (8.5-10.1) Test 01/13/17 11:49 Glucose (Fingerstick) 176 mg/dL (70-99) GARY VENEGAS MD Jan 13, 2017 16:04
[2017-01-13] MEDS: CALCITRIOL 0.25 MCG CAPSULE. PO SCH (17:14)
[2017-01-13 19:59] VITALS: BP 152/66
[2017-01-13] MEDS: amLODIPine BESYLATE 10 MG TABLET PO SCH (20:43)
[2017-01-13] MEDS: TERAZOSIN 5 MG CAPSULE. PO SCH (20:44)
[2017-01-13] MEDS: ATORVASTATIN CALCIUM 40 MG TABLET. PO SCH (20:44)
[2017-01-13 22:22] VITALS: BP 116/63
[2017-01-14 03:27] VITALS: BP 141/70
[2017-01-14 07:00] VITALS: BP 159/82
[2017-01-14] MEDS ORDERED: glipiZIDE ER 2.5 MG TAB.ER.24 PO SCH (08:00)
[2017-01-14] MEDS: INSULIN ASPART 300 UNITS/3 ML INSULN.PEN SQ SCH ×3 (08:00→17:00)
[2017-01-14] MEDS ORDERED: IOHEXOL 300 MG/ML 10ML VIAL. IJ ONE (08:15)
[2017-01-14] MEDS ORDERED: LIDOCAINE 1% / SOD BICARB 8.4% 20 ML VIAL. IJ ONE (08:30)
[2017-01-14] MEDS: ASPIRIN ENTERIC COATED 81 MG TABLET.DR. PO SCH (10:46)
[2017-01-14] MEDS: DIVALPROEX DELAYED RELEASE 500 MG TABLET.DR. PO SCH (10:46)
[2017-01-14] MEDS: CALCITRIOL 0.25 MCG CAPSULE. PO SCH (10:46)
[2017-01-14] MEDS: LEVOTHYROXINE 50 MCG TABLET PO SCH (10:46)
[2017-01-14] MEDS: FUROSEMIDE 40 MG TABLET. PO SCH (10:47)
[2017-01-14] MEDS: PROPRANOLOL ER 60 MG CAP.SA.24H. PO SCH (10:47)
[2017-01-14] MEDS: carBAMazepine 200 MG TABLET PO SCH (10:47)
[2017-01-14] MEDS: cloNIDine HCL 0.2 MG TABLET PO SCH (10:47)
[2017-01-14] MEDS: ALLOPURINOL 100 MG TABLET. PO SCH (10:48)
[2017-01-14] MEDS: CARVEDILOL 12.5 MG TABLET. PO SCH ×2 (10:55→17:28)
[2017-01-14 11:00] VITALS: BP 159/75
--- NOTE | 2017-01-14 12:05 | PDOC ---
SUBJECTIVE ROS CKD III "I', trying to sleep" CVS: o Orthopnea, no CP RESP: no SOB, no HERNANDEZ GI: no Nausea, no Vomiting : no Dysuria, no Urgency OBJECTIVE Vital Signs Vital Signs Date Time Temp Pulse Resp B/P (MAP) Pulse Ox O2 Delivery O2 Flow Rate FiO2 01/14/17 11:00 97.4 63 18 159/75 (103) 93 Room Air 97.4 I & 0 Intake and Output 01/14/17 07:00 Intake Total 2600 ml Output Total 1725 ml Balance 875 ml Intake Oral 2600 ml Output Urine Total 1725 ml PHYSICAL EXAM Physical Exam GEN: Awake, Oriented x 3, In no distress EYES: Vision Unchanged, Conjunctiva Normal EN: No EN Drainage, Mucous Membranes moist NECK: no JVD, no JVP, Supple, no Thyromegaly CVS: S1S2, ? soft Murmur, No Gallop, No Rub,no Edema RESP: no Rales, no Rhonchi,no Acc. Muscle Use GI: BS + ve, NO Bruit, Non Tender, Non Distended : n CVA tenderness, no Suprapubic Tenderness no visible tremors currently DIAGNOSIS/ASSESSMENT Assessment & Plan CKD STAGE 3 TO 4 WITH STABLE CR OF late - Current fluid and E-lyte status does not necessitate emergent need for dialysis. Will re-evaluate for dialysis in the am CAD WITH CM - EF 20% - appears to be clnically compensated; No worsening of Creat per se after LHC ?NSTEMI - LHC was "clean" Tremors - doubt Uremic - do 24-hr Urine as OP if this continues; consider checking tegretol level too HypoThyroid state - defer to Primary team Anemia - suspect part of pancytopenia - asso with anti-SZ meds Discussed Plan of Care with family () at bedside COMMENT/RELEVANT DATA Meds Current Medications Medications (Trade) Dose Ordered Sig/Rian Start Time Stop Time Status Last Admin Dose Admin Acetaminophen/ Hydrocodone Bitart (Lortab 5/325) 1 tab PRN Q6HRS PRN 01/10/17 00:00 01/10/17 10:22 1 TAB Allopurinol (Zyloprim) 100 mg DAILY 01/10/17 09:00 01/14/17 10:48 100 MG Amlodipine Besylate (Norvasc) 10 mg HS 01/09/17 21:00 01/13/17 20:43 10 MG Aspirin (Children'S Aspirin) 324 mg 1X ONCE 01/09/17 19:15 01/09/17 19:16 DC 01/09/17 19:10 324 MG Aspirin (Ecotrin) 81 mg DAILY08 01/10/17 08:00 01/14/17 10:46 81 MG Atorvastatin Calcium (Lipitor) 40 mg HS 01/09/17 21:00 01/13/17 20:44 40 MG Calcitriol (Rocaltrol) 0.25 mcg DAILY16 01/10/17 16:00 01/14/17 10:46 0.25 MCG Carbamazepine (TEGretol) 400 mg BID 01/09/17 21:00 01/14/17 10:47 400 MG Carvedilol (Coreg) 12.5 mg BIDWMEALS 01/10/17 17:00 01/14/17 10:55 12.5 MG Clonidine HCl (Catapres) 0.2 mg BID 01/09/17 21:00 01/14/17 10:47 0.2 MG Dextrose (Dextrose 50%-Water Syringe) 12.5 gm PRN Q15MIN PRN 01/09/17 21:00 01/11/17 08:10 12.5 GM Divalproex Sodium (Depakote) 500 mg BID 01/09/17 21:00 01/14/17 10:46 500 MG Fentanyl Citrate (Fentanyl 2ml Vial) 100 mcg 1X ONCE 01/11/17 12:15 01/11/17 12:41 DC Furosemide (Lasix) 40 mg DAILY 01/10/17 09:00 01/14/17 10:47 40 MG Glipizide (Glucotrol Er) 5 mg DAILY08 01/14/17 08:00 01/14/17 10:47 5 MG Heparin Sodium (Porcine) (Heparin Sodium) 2,500 unit 1X ONCE 01/11/17 12:15 01/11/17 12:41 DC 01/11/17 12:48 2,500 UNIT Heparin Sodium/ Dextrose 500 ml @ 19.1 mls/hr CONT PRN 01/10/17 10:00 01/11/17 12:47 DC 01/10/17 12:44 19.1 MLS/HR Heparin Sodium/ Sodium Chloride 1,000 unit 1X ONCE 01/11/17 12:15 01/11/17 12:41 DC 01/11/17 12:44 1,000 UNIT Info (Do NOT chart on this entry -- for MONITORING) 1 each PRN DAILY PRN 01/11/17 13:00 01/13/17 12:59 DC Insulin Aspart (NovoLOG) 0-5 UNITS TIDWMEALS 01/10/17 08:00 01/10/17 18:34 2 UNITS Iodixanol (Visipaque 320) 100 ml STK-MED ONCE 01/11/17 11:38 01/11/17 11:39 DC Iohexol (Omnipaque 300 Mg/ml) 20 ml 1X ONCE 01/14/17 08:15 01/14/17 08:21 DC 01/14/17 09:40 13 ML Levothyroxine Sodium (Synthroid) 50 mcg DAILY07 01/13/17 07:00 01/14/17 10:46 50 MCG Lidocaine HCl 20 ml 1X ONCE 01/11/17 12:15 01/11/17 12:41 DC 01/11/17 12:46 1 ML Lidocaine/Sodium Bicarbonate (Buffered Lidocaine 1%) 20 ml 1X ONCE 01/14/17 08:30 01/14/17 08:31 DC 01/14/17 09:40 2 ML Midazolam HCl (Versed) 2 mg 1X ONCE 01/11/17 12:15 01/11/17 12:41 DC Morphine Sulfate 2 mg PRN Q2HR PRN 01/09/17 19:15 01/10/17 19:14 DC Nitroglycerin (Nitroglycerin) 200 mcg 1X ONCE 01/11/17 12:15 01/11/17 12:41 DC 01/11/17 12:45 200 MCG Ondansetron HCl (Zofran) 4 mg PRN Q8HRS PRN 01/09/17 19:15 01/10/17 19:14 DC Propranolol HCl (Inderal La) 60 mg DAILY 01/12/17 12:30 01/14/17 10:47 60 MG Sodium Polystyrene Sulfonate (Kayexalate) 30 gm 1X ONCE 01/10/17 11:30 01/10/17 11:31 DC 01/10/17 12:36 30 GM Sodium Chloride 1,000 ml @ 75 mls/hr [id number] 01/10/17 12:00 01/11/17 19:12 DC 01/11/17 16:50 75 MLS/HR Terazosin HCl (Hytrin) 5 mg HS 01/09/17 21:00 01/13/17 20:44 5 MG Verapamil HCl (Verapamil) 2.5 mg 1X ONCE 01/11/17 12:15 01/11/17 12:41 DC 01/11/17 12:45 2.5 MG Warfarin Sodium (Coumadin Per Physician) 1 each PRN DAILY PRN 01/09/17 21:15 01/10/17 09:53 DC Warfarin Sodium (Coumadin) 5 mg DAILY16 01/10/17 16:00 01/10/17 16:00 DC Lab Laboratory Tests Test 01/13/17 16:19 01/14/17 07:32 Glucose (Fingerstick) 130 mg/dL (70-99) 87 mg/dL (70-99) GARY VENEGAS MD Jan 14, 2017 12:05
--- NOTE | 2017-01-14 12:16 | PDOC ---
SUBJECTIVE Subjective Denies acute changes. ROS: Denies pain, paresthesias, headache, nausea, vomiting OBJECTIVE Objective cervical CT myelogram shows stenosis due to degenerative changes most prominent C3-4 Vital Signs Vital Signs Date Time Temp Pulse Resp B/P (MAP) Pulse Ox O2 Delivery O2 Flow Rate FiO2 01/14/17 11:00 97.4 63 18 159/75 (103) 93 Room Air 97.4 01/14/17 10:55 87 159/82 01/14/17 10:47 87 159/82 01/14/17 10:47 87 159/82 01/14/17 08:00 Room Air 01/14/17 07:00 97.9 87 18 159/82 (107) 93 Room Air 97.9 01/14/17 03:27 97.8 67 18 141/70 (93) 94 Room Air 97.8 01/13/17 22:22 97.4 66 18 116/63 (80) 93 Room Air 97.4 01/13/17 20:44 60 152/66 01/13/17 20:44 60 152/66 01/13/17 20:43 60 152/66 01/13/17 19:59 97.8 60 18 152/66 (94) 94 Room Air 97.8 01/13/17 19:54 Room Air 01/13/17 17:14 82 136/78 01/13/17 15:00 98.1 82 19 136/78 (97) 98 Room Air 98.1 I & O Intake and Output 01/14/17 06:59 Intake Total 2600 ml Output Total 1725 ml Balance 875 ml Intake Oral 2600 ml Output Urine Total 1725 ml PHYSICAL EXAM Physical Exam AA, NAD, JEONG, 4/5 right hand otherwise 5/5 throughout, intention tremor with some mild rest tremor intermittently, sensation intact LT ASSESSMENT/PLAN Assessment/Plan 76M with cervical stenosis, gait disturbance, tremor -had extensive discussion with patient and family regarding etiologies of symptoms, cervical stenosis may be significant contributor of functional difficulties but tremors may contribute, as well -discussed potential cervical decompression with explanation of risks, benefits and expectations -medical comorbidities significant -after discussion of all of these things, the consensus was to continue medical therapy for tremor and continue physical therapy as well with continued short term follow-up with NS (approx two weeks) -all questions answered, all in agreement Problems: COMMENT Lab Laboratory Tests Test 01/13/17 16:19 01/14/17 07:32 Glucose (Fingerstick) 130 mg/dL (70-99) 87 mg/dL (70-99) WASHINGTON PRATER MD Jan 14, 2017 12:15
--- NOTE | 2017-01-14 12:42 | RAD ---
EXAM: 1. CT myelography cervical spine with intrathecal contrast. 2. Fluoroscopically guided lumbar puncture for myelographic contrast administration. HISTORY: Cervical central canal stenosis. Neck pain and stiffness. TECHNIQUE: The procedure along with its risks and benefits were explained to the patient. He agreed to proceed. A timeout procedure was performed. The L4-5 level was visualized fluoroscopically. The overlying skin was sterilely prepped and infiltrated with 1% lidocaine for local anesthesia. Under fluoroscopic guidance, a 22-gauge spinal needle was advanced into the thecal sac. Spontaneous return of clear cerebrospinal fluid was achieved. 10 mL iodinated myelographic contrast were administered under fluoroscopic control. Contrast was advanced to the cervical region under gravity. 4 fluoroscopic images were obtained. Positioning was limited by the patient's mobility. Fluoroscopy time 2.9 minutes. There were no immediate complications. The patient was transferred to CT. CT of the cervical spine was performed after the intrathecal administration of iodinated contrast. COMPARISON: 01/11/2017. FINDINGS: Atherosclerotic calcifications are noted at the carotid bulbs bilaterally. Positioning in the scanner is limited secondary to patient kyphosis and secondary cervical hyperlordosis. There is no significant listhesis. No fractures are identified. The craniocervical junction is unremarkable. There is moderate osteoarthritis at C1-2. Degenerative disc disease is mild from C2 through C5 and moderate to severe from C5 through T2. At C2-3, there is a moderate posterior disc-osteophyte complex. Facet osteoarthritis is moderate on the right and mild on the left. Ligamentum flavum hypertrophy is moderate. Central canal stenosis is moderate. Minimal anteroposterior central canal diameter is 7 mm. The cord is mildly flattened. Foraminal stenosis is moderate on the right. At C3-4, there is a moderate to large posterior disc-osteophyte complex. Minimal anteroposterior central canal diameter is 6.5 mm indicating moderate to severe central canal stenosis. The cord is moderately flattened. Facet osteoarthritis is severe on the left and moderate on the right. Uncovertebral osteoarthritis is moderate bilaterally. Foraminal stenosis is severe bilaterally. At C4-5, there is a moderate posterior disc-osteophyte complex. Minimal anteroposterior central canal diameter is 7.5 mm, indicating moderate to severe central canal stenosis. The cord is moderately flattened. Facet osteoarthritis is moderate to severe bilaterally. Uncovertebral osteoarthritis is moderate bilaterally. Foraminal stenosis is moderate to severe on the left and severe on the right. At C5-6, there is a small posterior disc-osteophyte complex. Facet osteoarthritis is moderate on the left greater than right. Uncovertebral osteoarthritis is moderate on the left and mild on the right. Foraminal stenosis is mild to moderate on the left. At C6-7, there is a moderate posterior disc-osteophyte complex. There is only mild central canal narrowing. Uncovertebral osteoarthritis is moderate to severe bilaterally. Foraminal stenosis is moderate to severe on the right and mild to moderate on the left. At C7-T1, there is a moderate posterior disc-osteophyte complex. Facet osteoarthritis is moderate to severe on the right and moderate on the left. Uncovertebral osteoarthritis is moderate to severe on the right greater than left. Foraminal stenosis is moderate on the left and moderate to severe on the right. IMPRESSION: 1. A combination of posterior disc osteophyte complexes at ligamentum flavum hypertrophy results in moderate to severe central canal stenosis from C2 through C5 as detailed above. At least mild cord volume loss is consistent with component of myelomalacia. 2. Foraminal stenosis is generally moderate to severe diffusely as detailed above. 3. Degenerative disc disease is moderate to severe from C5 through T2 and mild more superiorly. One or more of the following individualized dose reduction techniques were utilized for this examination: 1. Automated exposure control. 2. Adjustment of the mA and/or kV according to patient size. 3. Use of iterative reconstruction technique.
--- NOTE | 2017-01-14 14:40 | PDOC ---
PROGRESS NOTES Assessment Assessment Chronic tremor or jerking like movements x 3 months per his .. Gait instability x 3 years, worse recently x 3 months. PD not likely. HTN HLD CAD Seizure. DM CKD Renal failure. Hypothyroidism. Dementia features. Pacemaker in site. 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 Cognitive impairment. RECOMMENDATIONS/PLAN: Treat medical diseases. Continue Depakote 500 mg bid. Treat hypothyroidism. Consulted Neurosurgery. patient and his decided to get short team OT/PT then surgery. FU with Neurosurgery per instruction. OT/PT. Discussed with his in all detail again at bedside on 01/14/17. EEG on 01/11/17: The posterior dominant rhythm of 6-7 Hz/s that is slow for age. No seizure activity noted. HISTORY OF THE PRESENT ILLNESS: 76-y-old male patient with above medical diseases has been having symptoms of abnormal tremor like or jerking movements in hands. He also has gait instability for about 3 years but became worse in the recent months. Patient was unable to provide detailed information. Patient stated on 01/11 that he did not surgical consultation or intervention for his C-spine stenosis, but next day on 01/12, he and his changed mind and wanted NS consult. PAST MEDICAL HISTORY Cardiovascular: CAD, CHF, HTN, Hyperlipidemia, Other (SSS; PAflultter; PFO) CENTRAL NERVOUS SYSTEM: CVA, Seizure Heme/Onc: Other (dvt) Musculoskeletal: Osteoarthritis Rheumatologic: No pertinent hx Infectious disease: No pertinent hx Renal/: Chronic renal insuff (CKD3), Benign prostatic enlarg. Endocrine: Diabetes (2) PAST SURGICAL HISTORY Pacemaker, Other (PCI/BMS to LCx; IVC filter, back surgery and jaw surgery; bilateral LE venous RF ablation) FAMILY HISTORY Heart Disease SOCIAL HISTORY Smoke: No ALCOHOL: none Drugs: None Lives: with Family ALLERGY: Reviewed. MEDICATIONS: Refer to MAR REVIEW OF SYSTEMS: Constitutional: Mild malnutrition. Head: No traumatic brain or head injury. Skin: No edema, or rash. Ear: No infection Eyes: No vision loss or color blindness. Nose: No bleeding or purulent discharges. Hearing: Hearing decrease. Neck: No injury. Cardiac: HTN, HLD. Pulmonary: No pneumonia,. GI: No GI ulcer, GI bleeding. Urinary/genital: UTI. Endocrinologic: Diabetes Mellitus. Skeletomuscular: Generalized weakness. Neurological: see HP. Psychiatric: Denies drug use/abuse. Otherwise, not [id number] review of systems. PHYSICAL EXAMINATION: General appearance is in subacute distress. HEENT: Normocephalic and nontraumatic. Eyes, nose, ears, and throat are unremarkable. Neck is supple. No lymphadenopathy. No crepitus. Cardiovascular: S1, S2, regular rate and rhythm. Pulmonary: Clear to auscultation bilaterally. Abdomen: Bowel sounds are positive. Extremities: No rash, lesions, or edema. No restriction of range of motion NEUROLOGICAL EXAMINATION: Awake. Oriented to place and person but not accurate to time.. PERRL. EOMI. CN: no focal findings. Muscle tone: within normal. Muscle strength: 4 right UE and LE, 5 left UE. DTR: 2- Plantar reflex: Neutral response bilaterally Gait: not examined in bed. Sensory exam: no abnormal findings. No acute cerebellar signs elicited. F-T-N test fine. Objective Objective Vital Signs Date Time Temp Pulse Resp B/P (MAP) Pulse Ox O2 Delivery O2 Flow Rate FiO2 01/14/17 11:00 97.4 63 18 159/75 (103) 93 Room Air 97.4 Intake and Output 01/14/17 07:00 Intake Total 2600 ml Output Total 1725 ml Balance 875 ml Intake Oral 2600 ml Output Urine Total 1725 ml Vitals Signs Vitals VS - Last 72 Hours, by Label Date Time Temp Pulse Resp B/P (MAP) Pulse Ox O2 Delivery O2 Flow Rate FiO2 01/14/17 11:00 97.4 63 18 159/75 (103) 93 Room Air 97.4 01/14/17 10:55 87 159/82 01/14/17 10:47 87 159/82 01/14/17 10:47 87 159/82 01/14/17 08:00 Room Air 01/14/17 07:00 97.9 87 18 159/82 (107) 93 Room Air 97.9 01/14/17 03:27 97.8 67 18 141/70 (93) 94 Room Air 97.8 01/13/17 22:22 97.4 66 18 116/63 (80) 93 Room Air 97.4 01/13/17 20:44 60 152/66 01/13/17 20:44 60 152/66 01/13/17 20:43 60 152/66 01/13/17 19:59 97.8 60 18 152/66 (94) 94 Room Air 97.8 01/13/17 19:54 Room Air 01/13/17 17:14 82 136/78 01/13/17 15:00 98.1 82 19 136/78 (97) 98 Room Air 98.1 01/13/17 11:00 98.0 61 19 131/67 (88) 96 Room Air 98.0 01/13/17 10:11 68 150/73 01/13/17 10:11 67 150/73 01/13/17 08:00 Room Air 01/13/17 07:57 79 01/13/17 07:00 70 18 155/77 (103) 93 Room Air 01/13/17 07:00 98.0 98.0 Laboratory Laboratory Laboratory Tests Test 01/13/17 16:19 01/14/17 07:32 01/14/17 11:57 Glucose (Fingerstick) 130 mg/dL (70-99) 87 mg/dL (70-99) 176 mg/dL (70-99) Medication Medications Current Medications Glipizide (Glucotrol Er) 5 mg DAILY08 PO Last administered on 01/14/17 10:47 ; Start 01/14/17 at 08:00 Iohexol (Omnipaque 300 Mg/ml) 20 ml 1X ONCE IJ Last administered on 09:40; Start 01/14/17 at 08:15; Stop 01/14/17 at 08:21; Status DC Lidocaine/Sodium Bicarbonate (Buffered Lidocaine 1%) 20 ml 1X ONCE IJ Last administered on 01/14/17 09:40; Start 01/14/17 at 08:30; Stop 01/14/17 at 08 :31; Status DC Comment Review of Relevant I have reviewed the following items jay (where applicable) has been applied. ROBIN MACIAS MD Jan 14, 2017 14:40
[2017-01-14 15:00] VITALS: BP 123/53
[2017-01-14 17:28] VITALS: BP 123/53
--- NOTE | 2017-01-14 17:36 | PDOC3 ---
Discharge Summary [facility] Date of Admission: Jan 09, 2017 Discharge Date: Jan 14, 2017 Admitting Diagnosis weakness of right side Problems: Final Diagnosis Problems Medical Problems: (1) Chronic renal insufficiency Status: Acute (2) Elevated troponin Status: Acute (3) Weakness generalized Status: Acute CONSULTS Drs. Orellana, Malgorzata, Ravindra Procedures cervical myelogram, MRI Brief Hospital Course Mr. 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 He was seen by Neurology and NS and plans on getting stronger with PT/OT before having surgery next month. His chronic medical problems are stable and he was found to not have parkinsons or a stroke and his EEG did not show any seizure activity. His warfarin was held for procedures (myelogram) and INR is currently subtherapeutic but he will resume it at home this evening. problems addressed: Chronic tremor or jerking like movements x 3 months per his , continue propranolol. Gait instability x 3 years, worse recently x 3 months, has walker and home is handicap equiped. PD not likely. HTN - controlled with meds HLD - controlled with home meds CAD - no current chest pain Seizure disorder, stable with meds. DM 2, not on insulin, controlled CKD - stable stage 3 Hypothyroidism - on replacement. Dementia features. Pacemaker in site. 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 Cognitive impairment. RECOMMENDATIONS/PLAN: Consulted Neurosurgery. patient and his decided to get short team OT/PT then surgery. FU with Neurosurgery per instruction. OT/PT.7. EEG on 01/11/17: The posterior dominant rhythm of 6-7 Hz/s that is slow for age. No seizure activity noted. Patient History: FH: congestive heart failure G8 BROTHER 33 FATHER 32 MOTHER FH: diabetes mellitus G8 BROTHER G8 BROTHER FHx: hypercholesterolemia G8 BROTHER FHx: hypertension G8 BROTHER Problems: CONDITION AT DISCHARGE: Improved, Stable Scheduled Albuterol Sulfate (Albuterol Sulfate Neb Soln), 0.63 MG NEB PRN Q6HRS, (Reported ) Amlodipine Besylate (Amlodipine Besylate), 10 MG PO HS, (Reported) Amlodipine Besylate (Norvasc), 10 MG PO HS, (Reported) Aspirin (Aspir 81), 81 MG PO DAILY, (Reported) Atorvastatin Calcium (Atorvastatin Calcium), 40 MG PO HS, (Reported) Calcitriol (Calcitriol), 0.25 MCG PO DAILY16, (Reported) Carbamazepine (Carbamazepine), 400 MG PO BID, (Reported) Ciprofloxacin Hcl (Cipro), 500 MG .ROUTE BID Clonidine Hcl (Clonidine Hcl), 0.2 MG PO BID, (Reported) Divalproex Sodium (Divalproex Sodium), 500 MG PO BID, (Reported) Furosemide (Furosemide), 40 MG PO DAILY, (Reported) Glipizide (Glipizide Er), 10 MG PO DAILY, (Reported) Hydrocodone/Acetaminophen (Lortab 5-325 mg Tablet), 1 TAB PO Q6HRS Terazosin Hcl (Terazosin Hcl), 5 MG PO HS, (Reported) Warfarin Sodium (Coumadin), 1 TAB PO DAILY, (Reported) Discontinued Medications Carvedilol (Carvedilol), 12.5 MG PO BID, (Reported) Lizeth EWING MD Jan 14, 2017 17:36
--- NOTE | 2017-01-14 17:38 | DISCH ---
DISCHARGE FINAL DIAGNOSIS Problems Medical Problems: (1) Chronic renal insufficiency Status: Acute (2) Elevated troponin Status: Acute (3) Weakness generalized Status: Acute CONDITION ON DISCHARGE: Stable POST DISCHARGE ORDERS ACTIVITY ORDERS: Activity as tolerated, Walk in house DIET AFTER DISCHARGE: Renal FOLLOW-UP PHYSICIAN FOLLOW-UP: Dr Ewing within 2 weeks, Dr. Orellana in 2 weeks TREATMENT/EQUIPMENT ORDERS ADAPTIVE EQUIPMENT NEEDED: None Lizeth EWING MD Jan 14, 2017 17:38
[2017-01-14] MEDS ORDERED: GLIP2.5T4 PO (17:40)
[2017-01-14] MEDS ORDERED: LEVO50TA PO (17:40)
[2017-01-14] MEDS ORDERED: ALLO100T PO (17:40)
[2017-01-14] MEDS ORDERED: CARV12.52 PO (17:40)
[2017-01-14] MEDS ORDERED: PROP60CA PO (17:40)
== END 2017-01-14 20:48 | disposition home or self-care (01) | DRG 551 ==
LOC: ER 16:41 → 2 NORTH 19:02
PROVIDERS: ADMIT Family Medicine; ATTEND Family Medicine
PROC: 4A023N7 Measurement of Cardiac Sampling and Pressure, Left Heart, Percutaneous Approach (ICD-10-PCS; principal; 2017-01-11)
PROC: B2111ZZ Fluoroscopy of Multiple Coronary Arteries using Low Osmolar Contrast (ICD-10-PCS; 2017-01-11)
DX: M50.01 Cervical disc disorder with myelopathy, high cervical region (principal); I21.4 Non-ST elevation (NSTEMI) myocardial infarction; G95.89 Other specified diseases of spinal cord; E11.22 Type 2 diabetes mellitus with diabetic chronic kidney disease; E11.51 Type 2 diabetes mellitus with diabetic peripheral angiopathy without gangrene; D69.6 Thrombocytopenia, unspecified; N18.4 Chronic kidney disease, stage 4 (severe); I50.32 Chronic diastolic (congestive) heart failure; I42.9 Cardiomyopathy, unspecified; I13.0 Hypertensive heart and chronic kidney disease with heart failure and stage 1 through stage 4 chronic kidney disease, or unspecified chronic kidney disease; M48.02 Spinal stenosis, cervical region; E87.5 Hyperkalemia; D72.819 Decreased white blood cell count, unspecified; N40.0 Benign prostatic hyperplasia without lower urinary tract symptoms; I48.0 Paroxysmal atrial fibrillation; G25.0 Essential tremor; G40.909 Epilepsy, unspecified, not intractable, without status epilepticus; D64.9 Anemia, unspecified; E03.9 Hypothyroidism, unspecified; R26.9 Unspecified abnormalities of gait and mobility; R14.0 Abdominal distension (gaseous); R63.0 Anorexia; E78.5 Hyperlipidemia, unspecified; E78.00 Pure hypercholesterolemia, unspecified; R63.4 Abnormal weight loss; M19.90 Unspecified osteoarthritis, unspecified site; M50.31 Other cervical disc degeneration, high cervical region; F03.90 Unspecified dementia, unspecified severity, without behavioral disturbance, psychotic disturbance, mood disturbance, and anxiety; I25.10 Atherosclerotic heart disease of native coronary artery without angina pectoris; M47.892 Other spondylosis, cervical region; I87.2 Venous insufficiency (chronic) (peripheral); M10.9 Gout, unspecified; Z86.718 Personal history of other venous thrombosis and embolism; Z82.49 Family history of ischemic heart disease and other diseases of the circulatory system; Z95.0 Presence of cardiac pacemaker; Z95.820 Peripheral vascular angioplasty status with implants and grafts; Z83.3 Family history of diabetes mellitus; Z83.49 Family history of other endocrine, nutritional and metabolic diseases; Z86.73 Personal history of transient ischemic attack (TIA), and cerebral infarction without residual deficits; Z90.49 Acquired absence of other specified parts of digestive tract; Z95.5 Presence of coronary angioplasty implant and graft; Z68.24 Body mass index [BMI] 24.0-24.9, adult; Z79.899 Other long term (current) drug therapy; Z79.01 Long term (current) use of anticoagulants
CPT/HCPCS: 36415; 70450; 71010; 72125; 72126; 72240; 80048; 80053; 80061; 80164; 81001; 82306; 82550; 82607; 82746; 82962; 83036; 83735; 83880; 84439; 84443; 84481; 84484; 85025; 85520; 85610; 93005; 93306; 93458; 95816; 96360; C1769; C1892; J1644; J1815; J3490; J7030; J7040; J7042; Q9967; 97530; 99285-25; J2001

== ENCOUNTER → 2018-02-28 | Outpatient (CLI) | payer BC ==
[2017-09-04 15:00] VITALS: BP 165/82
[~2018-02-28] MED LIST changes: +ALLO100T PO; +AMLO10TA4 PO; -AMLO5TAB2 PO; +AMLO5TAB7 PO; +CARV12.511 PO; -CARV12.52 PO; +DIVA-53 PO; -DIVA500T9 PO; -GLIP-112 PO; +GLIP10TA24 PO; +GLIP2.5T4 PO; +LEVO50TA PO; +PROP60CA PO; +WARF-78 PO; +WARF10TA40 PO; -WARF10TA6 PO
--- NOTE | 2018-02-28 14:58 | CARD ---
MR#: [id number] Date of Study: 02/28/2018 Ordering Physician: THAIS ODOM, Referring Physician: THAIS ODOM Tech: Romy Calles RYAN APPROVED REPORT EXAM: Two-dimensional and M-mode echocardiogram with Doppler and color Doppler. Other Information Quality : GoodHR: 80bpm Rhythm : NSR INDICATION CAD 2D DIMENSIONS RVDd3.4 (2.9-3.5cm)Left Atrium(2D)2.6 (1.6-4.0cm) IVSd1.4 (0.7-1.1cm)Aortic Root(2D)3.8 (2.0-3.7cm) LVDd4.9 (3.9-5.9cm)LVOT Diameter2.3 (1.8-2.4cm) PWd1.0 (0.7-1.1cm)LVDs3.2 (2.5-4.0cm) FS (%) 35.2 %SV72.1 ml LVEF(%)64.3 (>50%) Aortic Valve AoV Peak Nate.119.2cm/sAoV VTI24.8cm AO Peak GR.5.7mmHgLVOT Peak Nate.93.2cm/s AO Mean GR.3mmHgAVA (VMAX)3.16cm2 SANAZ (VTI)3.62nq6EE P 1/2 [id number] Mitral Valve MV E Gqfyycbx41.7cm/sMV DECEL DSKQ115iv MV A Weyedlwj35.1cm/sE/A Ratio0.9 MV A Wjqsnjdl484tb Pulmonary Valve PV Peak Fcaubukq96.8cm/s Tricuspid Valve TR P. Ewgbnqsz376by/sRAP DICLQZIB4ylRq TR Peak Gr.92bzKqSDJH10dkAl Pulmonary Vein S1 Cnzdxsbq08.5cm/sD2 Uzgyviex04.2cm/s PVa [id number] LEFT VENTRICLE The left ventricle is normal size. Proximal septal thickening is noted. The left ventricular systolic function is normal. The Ejection Fraction is 60-65%. There is normal LV segmental wall motion. Trans mitral Doppler flow pattern is Grade II-pseudonormal filling dynamics. RIGHT VENTRICLE The right ventricle is normal size. There is normal right ventricular wall thickness. The right ventr icular systolic function is normal. ATRIA The left atrium size is normal. The right atrium size is normal. The interatrial septum is intact wit h no evidence for an atrial septal defect or patent foramen ovale as noted on 2-D or Doppler imaging. AORTIC VALVE The aortic valve is normal in structure and function. The aortic valve is trileaflet. Doppler and Col or Flow revealed trace aortic regurgitation. There is no significant aortic valvular stenosis. MITRAL VALVE The mitral valve is normal in structure and function. There is no evidence of mitral valve prolapse. There is no mitral valve stenosis. Doppler and Color Flow revealed no mitral valve regurgitation note d. TRICUSPID VALVE The tricuspid valve is normal in structure and function. Doppler and Color Flow revealed trace tricus pid regurgitation. The PA pressure was estimated at 30 mmHg. There is no tricuspid valve prolapse or vegetation. There is no tricuspid valve stenosis. PULMONIC VALVE The pulmonary valve is normal in structure and function. Doppler and Color Flow revealed trace pulmon ic valvular regurgitation. There is no pulmonic valvular stenosis. GREAT VESSELS The aortic root is mildly enlarged. The ascending aorta is normal in size. The IVC is normal in size and collapses >50% with inspiration. PERICARDIAL EFFUSION There is no evidence of significant pericardial effusion. Critical Notification Critical Value: No <Conclusion> The left ventricular systolic function is normal. The Ejection Fraction is 60-65%. There is normal LV segmental wall motion. Transmitral Doppler flow pattern is Grade II-pseudonormal filling dynamics. Trace aortic regurgitation. Trace tricuspid regurgitation. The PA pressure was estimated at 30 mmHg. There is no evidence of significant pericardial effusion. Signed by : Thais Odom, Electronically Approved : 02/28/2018 14:56:39
== END | disposition home or self-care (01) ==
LOC: ECHO 13:52
PROVIDERS: ATTEND Internal Medicine Cardiovascular Disease
DX: I25.10 Atherosclerotic heart disease of native coronary artery without angina pectoris (principal); Z87.891 Personal history of nicotine dependence
CPT/HCPCS: 93306

== ENCOUNTER → 2018-04-22 | Outpatient (CLI) | payer BC ==
[2017-09-04 15:00] VITALS: BP 165/82
[~2018-04-22] MED LIST changes: +AMLO5TAB10 PO; -AMLO5TAB7 PO
--- NOTE | 2018-04-22 16:41 | RAD ---
TESTICULAR/SCROTUM History: Testicular pain and swelling greater on the right Comparison: None. Findings: Multiple grayscale, color, duplex spectral analysis waveform images of the bilateral testicles and scrotum are submitted. Right testicle measured 4.2 x 2.7 x 2.6 cm. Left testicle measured 3.4 x 2.1 x 1.2 cm. There is no discrete intratesticular mass demonstrated on either side. There is small right hydrocele, internal septations. There are varicoceles bilaterally. There are scattered small foci of hyperechogenicity of the testicular parenchymal bilaterally, evidence of microlithiasis. There is asymmetric hypervascularity of the right epididymis and testicle comparing with the left, right epididymis more heterogeneous in appearance. There is normal low resistance vascularity of interrogated intratesticular vessels bilaterally, no evidence of testicular torsion. Impression: 1. There is asymmetric hypervascularity of the right epididymis and right testicle likely due to right epididymoorchitis. No discrete intratesticular mass is demonstrated, bilateral microlithiasis noted. There are bilateral varicoceles. There is a complex, septated right hydrocele. Electronically signed by: Carrillo Alanis MD (04/22/2018 4:38 PM) [id number]
== END | disposition home or self-care (01) ==
LOC: US 14:47
PROVIDERS: ATTEND Family Medicine
DX: I86.1 Scrotal varices (principal); N43.2 Other hydrocele
CPT/HCPCS: 76870

== ENCOUNTER 2019-02-26 19:42 | Emergency (ER) | payer BC ==
[~2019-02-26] VITALS: Ht 182.9 cm; Wt 82.6 kg
[2019-02-26] MEDS ORDERED: ONDANSETRON PF 4 MG/2 ML VIAL. IV ONE (20:45)
[2019-02-26] MEDS ORDERED: MORPHINE SULFATE 4 MG/ML VIAL. IV ONE (20:45)
--- NOTE | 2019-02-26 20:48 | RAD ---
CT Head W/O Contrast: History: Fall with severe neck pain Comparison: none Axial images were obtained without contrast. There is marked diffuse atrophy. There is no mass effect, extraaxial fluid collections or hydrocephalus. There is no gross bleed. Mild, patchy periventricular and subcortical white matter hypoattenuation is seen. There is no focal loss of hale-white matter distinction to suggest acute ischemia, i.e. stroke. Impression: No acute findings. PQRS Compliance Statement: One or more of the following individualized dose reduction techniques were utilized for this examination: 1. Automated exposure control 2. Adjustment of the mA and/or kV according to patient size 3. Use of iterative reconstruction technique Electronically signed by: Davon Dial III, MD (02/26/2019 8:45 PM) [facility]
[2019-02-26 20:56] LABS: BASO % 0 % (0-3); EOS # 0.1 x10^3/uL (0.0-0.7); EOS % 4 % (0-3); HEMATOCRIT 33.8 % (39.0-53.0); LYMPH # 0.8 x10^3/uL (1.0-4.8); LYMPH % 28 % (24-48); MEAN CORPUSCULAR HEMOGLOBIN 31 pg (25-35); MEAN CORPUSCULAR HGB CONC 32 g/dL (31-37); MEAN CORPUSCULAR VOLUME 97 fL (79-100); MONO # 0.4 x10^3/uL (0.0-1.1); MONO % 15 % (0-9); NEUT # 1.5 x10^3/uL (1.8-7.7); NEUT % 52 % (31-73); PLATELET COUNT 110 x10^3/uL (140-400); RED BLOOD COUNT 3.49 x10^6/uL (4.30-5.70); WHITE BLOOD COUNT 2.8 x10^3/uL (4.0-11.0)
--- NOTE | 2019-02-26 21:02 | PHYS DOC ---
Past Medical History Past Medical History: Angina, CAD, Diabetes-Type II, DVT, High Cholesterol, Hypertension, Seizure Past Surgical History: Appendectomy Additional Past Surgical Histo: IVC Filter, Heart Cath with stent, vein surgery on leg, back surgery Alcohol Use: None Drug Use: None Adult General Chief Complaint Chief Complaint: TRAUMA ALERT HPI HPI 78-year-old male presents to the emergency department after a fall. Patient states he was at [employer] he got up and fell backwards approximately 30 minutes prior to his arrival. Denies any loss of consciousness as, he denies any head injury he complains of neck pain. Patient is on Coumadin he describes the pain 10 out of 10 with shooting pains down his arms. Movements make his pain worse. There is no evidence deformity appreciated on examination. Patient denies any chest pain, shortness breath, nausea, vomiting. Review of Systems Review of Systems Constitutional: Denies fever or chills [] Respiratory: Denies cough or shortness of breath [] Cardiovascular: No additional information not addressed in HPI [] GI: Denies abdominal pain, nausea, vomiting, bloody stools or diarrhea [] Musculoskeletal: neck pain Neurologic: Denies headache, focal weakness or sensory changes [] All other systems were reviewed and found to be within normal limits, except as documented in this note. Current Medications Current Medications Current Medications Medications (Trade) Dose Ordered Sig/[facility] Start Time Stop Time Status Last Admin Dose Admin Dexamethasone Sodium Phosphate (Decadron) 10 mg 1X ONCE 02/26/19 22:00 02/26/19 22:01 DC 02/26/19 22:10 10 MG Fentanyl Citrate (Fentanyl 2ml Vial) 100 mcg STK-MED ONCE 02/26/19 22:05 02/26/19 22:05 DC Morphine Sulfate (Morphine Sulfate) 4 mg 1X ONCE 02/26/19 20:45 02/26/19 20:46 DC 02/26/19 20:57 4 MG Ondansetron HCl (Zofran) 4 mg 1X ONCE 02/26/19 20:45 02/26/19 20:46 DC 02/26/19 20:57 4 MG Allergies Allergies Allergies Coded Allergies Type Severity Reaction Last Updated Verified No Known Allergies Allergy Intermediate 01/13/17 Yes Uncoded Allergies Type Severity Reaction Last Updated Verified PACEMAKER NO MRI Allergy Severe 09/01/17 Physical Exam Physical Exam Constitutional: Well developed, well nourished, no acute distress, non-toxic appearance. [] HENT: Normocephalic, atraumatic, bilateral external ears normal, oropharynx moist, no oral exudates, nose normal. [] Eyes: PERRLA, EOMI, conjunctiva normal, no discharge. [] Neck: c-collar in place Cardiovascular:Heart rate regular rhythm, no murmur [] Lungs & Thorax: Bilateral breath sounds clear to auscultation [] Abdomen: Bowel sounds normal, soft, no tenderness, no masses, no pulsatile masses. [] Skin: Warm, dry, no erythema, no rash. [] Back: No tenderness, no CVA tenderness. [] Extremities: No tenderness, no edema. [] Neurologic: Alert and oriented X 3, bilateral upper ext with tingling, weakness bilaterally, pain with movement - [] Psychologic: Affect normal, judgement normal, mood normal. [] Current Patient Data Vital Signs Vital Signs Date Time Temp Pulse Resp B/P (MAP) Pulse Ox O2 Delivery O2 Flow Rate FiO2 02/26/19 22:09 16 96 Room Air 02/26/19 21:48 60 134/70 (91) 02/26/19 19:45 98.0 02/26/19 19:42 97.9 97.9 Lab Values Laboratory Tests Test 02/26/19 20:00 White Blood Count 2.8 x10^3/uL (4.0-11.0) L Red Blood Count 3.49 x10^6/uL (4.30-5.70) L Hemoglobin 11.0 g/dL (13.0-17.5) L Hematocrit 33.8 % (39.0-53.0) L Mean Corpuscular Volume 97 fL (79-100) Mean Corpuscular Hemoglobin 31 pg (25-35) Mean Corpuscular Hemoglobin Concent 32 g/dL (31-37) Red Cell Distribution Width 17.0 % (11.5-14.5) H Platelet Count 110 x10^3/uL (140-400) L Neutrophils (%) (Auto) 52 % (31-73) Lymphocytes (%) (Auto) 28 % (24-48) Monocytes (%) (Auto) 15 % (0-9) H Eosinophils (%) (Auto) 4 % (0-3) H Basophils (%) (Auto) 0 % (0-3) Neutrophils # (Auto) 1.5 x10^3/uL (1.8-7.7) L Lymphocytes # (Auto) 0.8 x10^3/uL (1.0-4.8) L Monocytes # (Auto) 0.4 x10^3/uL (0.0-1.1) Eosinophils # (Auto) 0.1 x10^3/uL (0.0-0.7) Basophils # (Auto) 0.0 x10^3/uL (0.0-0.2) Prothrombin Time 27.1 SEC (11.7-14.0) H Prothrombin Time INR 2.5 (0.8-1.1) H Sodium Level 141 mmol/L (136-145) Potassium Level 4.5 mmol/L (3.5-5.1) Chloride Level 102 mmol/L (98-107) Carbon Dioxide Level 32 mmol/L (21-32) Anion Gap 7 (6-14) Blood Urea Nitrogen 42 mg/dL (8-26) H Creatinine 2.1 mg/dL (0.7-1.3) H Estimated GFR (Cockcroft-Gault) 37.0 BUN/Creatinine Ratio 20 (6-20) Glucose Level 178 mg/dL (70-99) H Calcium Level 8.9 mg/dL (8.5-10.1) Total Bilirubin 0.2 mg/dL (0.2-1.0) Aspartate Amino Transferase (AST) 47 U/L (15-37) H Alanine Aminotransferase (ALT) 14 U/L (16-63) L Alkaline Phosphatase 72 U/L (46-116) Total Protein 7.7 g/dL (6.4-8.2) Albumin 3.2 g/dL (3.4-5.0) L Albumin/Globulin Ratio 0.7 (1.0-1.7) L Laboratory Tests 02/26/19 20:00 Laboratory Tests 02/26/19 20:00 EKG EKG EKG reviewed, normal sinus rhythm, heart rate 61, left axis deviation, no STEMI interpretation time 2004[] Radiology/Procedures Radiology/Procedures [] Course & Med Decision Making Course & Med Decision Making Pertinent Labs and Imaging studies reviewed. (See chart for details) []78-year-old male presents to the emergency department after a fall. Patient states he was at [employer] he got up and fell backwards approximately 30 minutes prior to his arrival. Denies any loss of consciousness as, he denies any head injury he complains of neck pain. Patient is on Coumadin he describes the pain 10 out of 10 with shooting pains down his arms. Movements make his pain worse. There is no evidence deformity appreciated on examination. Patient denies any chest pain, shortness breath, nausea, vomiting. Received call from radiology regarding critical findings on cervical spine CT patient in c-collar upon arrival nursing C-spine reveals evidence of unstable neck fracture, 10 mg Decadron IV provided A medications including morphine 4 mg, fentanyl 25 g provided IV Laboratory values reviewed creatinine 2.1, INR 2.5 Call placed to neurosurgery, Dr. Lindsey. Discussed case with nurse practitioner Chanel, images were reviewed per Dr. Lindsey with recommendations to transfer to [facility] transfer center contacted [phone] with accepting physician for transfer Dr. Conde Test findings with patient and family at bedside we'll plan transfer emergently for unstable neck fracture Dragon Disclaimer Dragon Disclaimer This electronic medical record was generated, in whole or in part, using a voice recognition dictation system. Departure Departure Impression: Primary Impression: Unstable cervical spine Additional Impressions: Chronic anticoagulation Hypertension Diabetes CKD (chronic kidney disease) Disposition: 05 TRANSFER OTHER Condition: GUARDED Referrals: Lizeth EWING MD (PCP) Critical Care Time Critical care time was 40 minutes exclusive of procedures. Problem Qualifiers Additional Impressions: Hypertension Hypertension type: essential hypertension Qualified Codes: I10 - Essential (primary) hypertension Diabetes Diabetes mellitus type: type 2 Diabetes mellitus half-way insulin use: unspecified half-way insulin use status Diabetes mellitus complication status: with kidney complications Diabetes mellitus complication detail: with chronic kidney disease Chronic kidney disease stage: unspecified stage Qualified Codes: E11.22 - Type 2 diabetes mellitus with diabetic chronic kidney disease CKD (chronic kidney disease) Chronic kidney disease stage: unspecified stage Qualified Codes: N18.9 - Chronic kidney disease, unspecified MALLORY JIMÉNEZ MD Feb 26, 2019 21:02
[2019-02-26 21:03] LABS: CALCIUM 8.9 mg/dL (8.5-10.1); CREATININE 2.1 mg/dL (0.7-1.3); POTASSIUM 4.5 mmol/L (3.5-5.1)
[2019-02-26 21:05] LABS: PROTHROMBIN TIME PATIENT 27.1 SEC (11.7-14.0)
[2019-02-26 21:08] LABS: ALBUMIN 3.2 g/dL (3.4-5.0); ALBUMIN/GLOBULIN RATIO 0.7 (1.0-1.7); TOTAL BILIRUBIN 0.2 mg/dL (0.2-1.0); TOTAL PROTEIN 7.7 g/dL (6.4-8.2)
--- NOTE | 2019-02-26 21:27 | RAD ---
CT cervical spine without contrast: Reason for examination: Fell with severe neck pain. Helical images were obtained through the cervical spine from skull base through the thoracic apices with no contrast administered. Reconstruction was performed in sagittal and coronal planes. Exposure: One or more of the following individualized dose reduction techniques were utilized for this examination: 1. Automated exposure control 2. Adjustment of the mA and/or kV according to patient size 3. Use of iterative reconstruction technique. The C1 ring appears to be intact. The odontoid process appears to be intact and normally centered between the lateral masses of C1. The C2, C3 and C4 vertebral bodies appear to be intact but there are degenerative changes at the disks and facets. There is moderate central canal stenosis at the C3-4 level. At the C5 vertebral body there appears to be fracture involving the posterior tip of the spinous process at the C5 lamina and pedicles appear to be intact. At the C6 level, there appears to be a fracture of the posterior tip of the spinous process and a fracture of the right articular facet with anterior shift of the right superior articular facet of C7 approximately 6 mm and the left superior articular facet of C7 displaced anteriorly 5 mm. There is abnormal widening of the intervertebral disc space between C6 and C7 vertebral bodies and fracture of the bridging osteophyte seen anteriorly at the C6-7 level. There does appear to be moderate stenosis of the spinal canal at this level. There are bridging osteophytes along the anterior margin of the vertebral bodies from C7 through T3 which are intact. IMPRESSION: Abnormal widening of the C5-6 disc space anteriorly with apparent fracture of the right articular facet of C6 and anterior shift of the superior articular facets of C7 anteriorly 5 mm on the left and 6 mm on the right. Fractures of the posterior tips of the C5 and C6 spinous processes. Moderate stenosis in the spinal canal at the C6-7 level. Degenerative spondylosis with hypertrophic spurring and moderate spinal stenosis at the C3-4 level. FOR INTERNAL CODING PURPOSES RESULT CODE: This report was called to Dr. Staples in the emergency room at [facility] at 21:23 PM on 02/26/2019. Electronically signed by: Linda Banegas MD (02/26/2019 9:24 PM) [id number]
[2019-02-26] MEDS ORDERED: DEXAMETHASONE SOD PHOS 4 MG/ML VIAL IVP ONE (22:00)
[2019-02-26] MEDS ORDERED: fentaNYL PF VIAL 100 MCG/2 ML VIAL ONE (22:05)
--- NOTE | 2019-02-26 22:06 | RAD ---
Two View bilateral hands: Clinical History: Pain status post fall. Technique: Limited 2 view AP and lateral views were obtained bilaterally. Comparison: None. Findings: The visualized osseous structures appear normal. Impression: No acute findings. Electronically signed by: Davon Dial III, MD (02/26/2019 10:03 PM) [facility]
[2019-02-26 22:18] VITALS: BP 150/71
[2019-02-26] MEDS ORDERED: fentaNYL PF VIAL 100 MCG/2 ML VIAL IVP ONE (22:30)
--- NOTE | 2019-02-27 06:47 | EKG ---
[facility] [address] [place] [address] Test Date: 2019-02-26 Test Time: 20:05:22 Pat Name: SIRISHA WINTERS Department: Room: Gender: M [employer] Development [employer]: : 1940 Requested By: MALLORY JIMÉNEZ Order Number: [id number] Reading MD: Measurements Intervals [place] Rate: 61 P: 0 TN: 170 QRS: -89 QRSD: 202 T: 100 QT: 490 QTc: 495 Interpretive Statements SINUS RHYTHM ABNORMAL LEFT AXIS DEVIATION RIGHT BUNDLE BRANCH BLOCK ABNORMAL ECG RI6.01 No previous ECG available for comparison
== END 2019-02-26 23:19 | disposition short-term general hospital (02) ==
LOC: ER 19:42
DX: M53.2X2 Spinal instabilities, cervical region (principal); E11.22 Type 2 diabetes mellitus with diabetic chronic kidney disease; I12.9 Hypertensive chronic kidney disease with stage 1 through stage 4 chronic kidney disease, or unspecified chronic kidney disease; N18.9 Chronic kidney disease, unspecified; I25.10 Atherosclerotic heart disease of native coronary artery without angina pectoris; E78.00 Pure hypercholesterolemia, unspecified; Z86.73 Personal history of transient ischemic attack (TIA), and cerebral infarction without residual deficits; Z79.01 Long term (current) use of anticoagulants; Z86.718 Personal history of other venous thrombosis and embolism; Z90.89 Acquired absence of other organs; Z95.5 Presence of coronary angioplasty implant and graft; Z95.0 Presence of cardiac pacemaker
CPT/HCPCS: 36415; 70450; 72125; 73120; 80053; 85025; 85610; 93005; 96374; 96375; 99285; J1100; J2270; J2405; J3010